=== PATIENT | female | born 1995 | race Caucasian/White ===

== ENCOUNTER 2024-06-13 23:40 | Emergency (ER) | payer SELFPAY ==
[2024-06-13 23:37] VITALS: BP 128/93; PULSE 99; RESP 16; TEMP 36.6; O2SAT 100
--- NOTE | 2024-06-13 23:42 | ECG_ITS ---
Test Date: 2024-06-14 00:20:01 Measurements Intervals [place] Rate: P: 0 RI: 0 QRS: 0 QRSD: 0 T: 0 QT: 0 QTc: 0 Interpretive Statements NORMAL SINUS RHYTHM No previous ECG available for comparison Electronically Signed On 06-14-2024 08:45:52 URBAN SOCIOLOGIST by Cherry Alexis M.D.
[2024-06-13 23:53] LABS: BEDSIDEPREGUCG Negative (Negative)
[2024-06-13] MEDS: Please add drug allergy info to patient profile. 1 EACH XX (23:59)
[2024-06-13] MEDS: ONDANSETRON INJ 4 MG/2 ML VIAL IV PUSH (23:59)
[2024-06-14] MEDS: [UNRECOGNIZED DRUG - OTHER] IV CONT (00:03)
[2024-06-14] MEDS: FOLIC ACID IV CONT (00:03)
[2024-06-14] MEDS: MAGNESIUM SULFATE IV CONT (00:03)
[2024-06-14] MEDS: THIAMINE HCL IV CONT (00:03)
[2024-06-14] MEDS: Please add drug allergy info to patient profile. 1 EACH XX (00:06)
[2024-06-14 00:07] LABS: Basophils Absolute Auto 0.1 K/mm3 (0.0-0.1); Basophils Percent Auto 0.7 % (0.2-1.2); Eosinophils Absolute Auto 0.2 K/mm3 (0-0.3); Eosinophils Percent Auto 1.2 % (0-4.4); Hematocrit 41.1 % (37.0-47.0); Hemoglobin 13.4 g/dL (12.0-15.0); Immature Granulocyte Absolute 0.09 K/mm3 (0.00-0.031); Immature Granulocyte Percent A 0.7 % (0-0.5); Lymphocytes Absolute Auto 5.25 K/mm3 (0.9-3.2); Lymphocytes Percent Auto 39.6 % (18.3-44.2); Mean Corpuscular HGB Conc 32.6 g/dl (32-36); Mean Corpuscular Hemoglobin 27.1 pg (26-34); Mean Corpuscular Volume 83.2 fl (80-100); Mean Platelet Volume 10.2 fl (7.4-10.4); Monocytes Absolute Auto 0.8 K/mm3 (0.1-0.6); Neutrophils Absolute Auto 6.9 K/mm3 (1.3-6.7); Neutrophils Percent Auto 51.8 % (45.5-73.1); Platelet Count Result 397 k/mm3 (150-375); Red Blood Count 4.94 M/mm3 (4.2-5.4); Red Cell Distribution Width 12.4 % (11.5-14.5); White Blood Count 13.3 K/mm3 (4.5-10.0)
[2024-06-14 00:08] LABS: Add Urine Microscopic? NO; Appearance Urine Clear (Clear); Bilirubin Urine Negative (Negative); Blood Urine Negative (Negative); Color Urine Yellow (Yellow); Glucose Urine UA Negative (Negative); Ketones Urine Negative (Negative); Leukocyte Esterase Ur Negative LEU/UL (Negative); Nitrate Urine Negative (Negative); Protein Urine Negative (Negative); Specific Grav Ur 1.008 (1.001-1.035); Urobilinogen Urine 0.2 mg/dL (<2.0); pH Urine 5.5 (5.0-9.0)
[2024-06-14 00:16] LABS: Alanine Aminotransferase 18 U/L (6-35); Albumin Level 4.5 g/dL (3.5-5.1); Alkaline Phosphatase 79 U/L (38-126); Anion Gap 11 mmol/L (4-12); Aspartate Amino Transferase 25 U/L (14-36); Bilirubin,Total 0.3 mg/dL (0.2-1.3); Blood Urea Nitrogen 12 mg/dL (7-17); Calcium 8.5 mg/dL (8.4-10.2); Carbon Dioxide 21 mmol/L (22-30); Chloride 111 mmol/L (98-107); Estimated Glomerular Filt Rate > 60; Ethanol 183 mg/dL (<10); Glucose 156 mg/dL (65-110); Potassium 3.5 mmol/L (3.4-5.0); Sodium 143 mmol/L (137-145)
[2024-06-14] MEDS: METOCLOPRAMIDE HCL INJ 10 MG/2 ML VIAL IV PUSH (00:18)
[2024-06-14 00:48] LABS: Prothrombin Time 13.5 Seconds (11.1-14.7)
--- NOTE | 2024-06-14 01:06 | ED_ITS ---
HPI - Alcohol General Chief Complaint: Alcohol Stated Complaint: N/V, AMS, ETOH+ Time Seen by Provider: 06/13/24 23:41 History of Present Illness HPI narrative: 29-year-old female with no pertinent past medical history presented to the emergency department with a chief complaint of alcohol intoxication. She was at a wedding and EMS arrived scene to find the patient in and out of consciousness. Reported that she drinks between 4 9 glass of wine. Patient is drowsy but is able to answer questions. No obvious evidence of trauma. She is not ill appearing. Is retching and vomited several times prior to arrival and here in the emergency department. She is denying any abdominal pain, headache, vision changes, chest pain or difficulty breathing. States that she drank too much alcohol but denies any other substances today. Related Data Allergies Allergy/AdvReac Type Severity Reaction Status Date / Time Sulfa (Sulfonamide Allergy Intermediate Unknown Verified 06/13/24 23:59 Antibiotics) Review of Systems 2 Review of Systems: As reviewed above in HPI Exam 2 Narrative: GENERAL: Somnolent, arousable to verbal stimuli, answers questions appropriately when awake HEAD: [Normocephalic, atraumatic.] EYES: [PERRLA and EOMI.] ENT: Nares clear, no rhinorrhea or epistaxis. Mucous membranes dry. NECK: Supple. CHEST: [Clear to auscultation. No respiratory distress.] HEART: [Regular rate and rhythm]. No murmur heard. [Normal peripheral pulses.] ABDOMEN: [Soft, nondistended], [nontender], [No rigidity or guarding] EXTREMITIES: Normal range of motion. [No edema.] SKIN: Warm, dry, no rash. NEURO: Seems to move all extremities with equal effort in strength. , arousable to verbal and physical stimuli PSYCH: Appropriate Course Vital Signs Vital signs: Vital Signs Temperature 36.6 C 06/13/24 23:37 Pulse Rate 99 06/13/24 23:37 Respiratory Rate 16 06/13/24 23:37 Blood Pressure 128/93 H 06/13/24 23:37 Pulse Oximetry 100 06/13/24 23:37 Oxygen Delivery Room Air 06/13/24 23:37 Temperature 36.7 C 06/14/24 01:07 Pulse Rate 109 H 06/14/24 01:07 Respiratory Rate 19 06/14/24 01:07 Blood Pressure 94/66 L 06/14/24 01:07 Pulse Oximetry 100 06/14/24 01:07 Oxygen Delivery Room Air 06/13/24 23:37 MDM - Alcohol MDM Narrative Medical decision making narrative: 29-year-old female presenting to the emergency department for mental status changes and suspected significant alcohol intoxication. Patient was drifting in and out of consciousness according to EMS report and that is why they called seen. Patient's family states she drank between 4 9 glass of wine. Patient is obviously intoxicated but there is no evidence of visible trauma to her head neck or extremities. She has clear breath sounds and a soft nontender abdomen. She is arousable to verbal and physical stimuli but states that she is very nauseous and does rash throughout the examination. No obvious injuries and she has full strength throughout both arms legs with no apparent deficits. Workup was ordered including alcohol level, UDS, laboratory studies. EKG. Patient was provided him Zofran and then Reglan for several episodes of retching and nausea vomiting. Workup reveals a leukocytosis of 13.3 likely secondary to her multiple episodes of retching and vomiting. No obvious infectious type symptoms and she is afebrile with normal vital signs otherwise. Normal hemoglobin. Normal coagulation studies, electrolytes all within normal limits, appropriate glucose at 1:56 a.m., normal hepatic function panel. Alcohol level elevated 183 indicating alcohol intoxication and the likely source of her mental status. Urinalysis without any infection. Negative test. Patient's workup is reassuring and she is intoxicated. Her family members are present at bedside and felt comfortable with taking her home as she has no other injuries or acute findings. We can send her home with a prescription for Zofran if she has any recurrent emesis but otherwise she is stable for discharge home accompanied by her sober parents who are agreeable to take her home and bring her back if there is any new or worsening concerns at any time. Medical Records Attestation: I reviewed the patient's medical records. Lab Data Attestation: I reviewed the patient's lab results. 06/14/24 00:00 06/14/24 00:00 Labs: Lab Results 06/13/24 06/14/24 Range/Units 23:50 00:00 WBC 13.3 H (4.5-10.0) K/mm3 RBC 4.94 (4.2-5.4) M/mm3 Hgb 13.4 (12.0-15.0) g/dL Hct 41.1 (37.0-47.0) % MCV 83.2 (80-100) fl MCH 27.1 (26-34) pg MCHC 32.6 (32-36) g/dl RDW 12.4 (11.5-14.5) % Plt Count 397 H (150-375) k/mm3 MPV 10.2 (7.4-10.4) fl Immature Gran % (Auto) 0.7 H (0-0.5) % Neut % (Auto) 51.8 (45.5-73.1) % Lymph % (Auto) 39.6 (18.3-44.2) % [place] % (Auto) 6.0 (2.6-8.5) % Eos % (Auto) 1.2 (0-4.4) % Baso % (Auto) 0.7 (0.2-1.2) % Lymph # (Auto) 5.25 H (0.9-3.2) K/mm3 [place] # (Auto) 0.8 H (0.1-0.6) K/mm3 Eos # (Auto) 0.2 (0-0.3) K/mm3 Baso # (Auto) 0.1 (0.0-0.1) K/mm3 Abs Immat Gran (auto) 0.09 H (0.00-0.031) K/mm3 Absolute Neuts (auto) 6.9 H (1.3-6.7) K/mm3 Absolute Nucleated RBC 0.000 (0.0-0.012) K/mm3 Nucleated RBC % 0.0 (0.0-0.2) % PT 13.5 (11.1-14.7) Seconds INR 1.0 APTT 24.0 (22.3-36.8) Seconds Sodium 143 (137-145) mmol/L Potassium 3.5 (3.4-5.0) mmol/L Chloride 111 H (98-107) mmol/L Carbon Dioxide 21 L (22-30) mmol/L Anion Gap 11 (4-12) mmol/L BUN 12 (7-17) mg/dL Creatinine 0.70 (0.7-1.0) mg/dL Estim Creat Clear Calc Not Reportable Estimated GFR > 60 (59 - ) Glucose 156 H (65-110) mg/dL Calcium 8.5 (8.4-10.2) mg/dL Total Bilirubin 0.3 (0.2-1.3) mg/dL AST 25 (14-36) U/L ALT 18 (6-35) U/L Alkaline Phosphatase 79 (38-126) U/L Total Protein 7.0 (6.3-8.2) g/dL Albumin 4.5 (3.5-5.1) g/dL Urine Color Yellow (Yellow) Urine Appearance Clear (Clear) Urine pH 5.5 (5.0-9.0) Ur Specific [place] 1.008 (1.001-1.035) Urine Protein Negative (Negative) mg/dL Urine Glucose (UA) Negative (Negative) mg/dL Urine Ketones Negative (Negative) mg/dL Ur Blood (Man) Negative (Negative) Urine Nitrate Negative (Negative) Urine Bilirubin Negative (Negative) Urine Urobilinogen 0.2 (<2.0) mg/dL Leukocyte Esterase Rfl Negative (Negative) LE/UL POC Urine HCG, Qual Negative (Negative) Ethyl Alcohol 183 (<10) mg/dL Discharge Plan Discharge Clinical Impression: Alcoholic intoxication Patient Disposition: Home, Self-Care Condition: Stable Instructions: Antibiotic Form, Alcohol Intoxication (ED) Additional Instructions: Return with any new or worsening concerns. Patient Language: Greenlandic Prescriptions: New ondansetron 4 mg tablet,disintegrating 4 mg PO Q8H PRN (Reason: nausea and vomiting) Qty: 10 0RF Follow-up/Referrals: UNKNOWN,DOCTOR [Primary Care Provider] - Time of Disposition: 01:15
[2024-06-14 01:07] VITALS: BP 94/66; PULSE 109; RESP 19; TEMP 36.7; O2SAT 100
--- OUTSIDE RECORDS SUMMARY | 2024-06-18 11:48 | XMS_ITS | Encounter Summary ---
Author Organization [facility] Address [address] [place] [address] Care Team Providers Care First Leveler Name Role Phone Yvonne Reyes MD Primary Care Provider Isaiah ayers Encounter Details Date Type Department Care Team (Latest Contact Info) Description 05/29/2019 Travel Social History Tobacco Use Types Packs/Day Years Used Date Smoking Tobacco: Never Smokeless Tobacco: Never Alcohol Use Standard Drinks/Week Comments Yes 0 (1 standard drink = 0.6 oz pur e alcohol) 2 times weekly Sex and Gender Information Value Date Recorded Sex Assigned at Not on file Gender Identity Not on file Sexual Orientation Not on file documented as of this encounter Plan of Treatment Not on file documented as of this encounter Visit Diagnoses Not on filedocumented in this encounter Care Teams First Leveler Relationship Specialty Start Date End Date Yvonne Reyes MD PCP - General Internal Medicine 11/21/17 12/19/20 documented as of this encounter
--- OUTSIDE RECORDS SUMMARY | 2024-06-18 11:48 | XMS_ITS | Encounter Summary ---
Author Organization [facility] Address [address] [place] [address] Care Team Providers Care Eco Industrial Development Consultant Name Role Phone Yvonne Reyes MD Primary Care Provider Isaiah ayers Reason for Visit * Reason Comments Abdominal Pain sharp pain in stomac h every 15 seconds, acid in throat, upper middle Encounter Details Date Type Department Care Team (Late st Contact Info) Description 05/29/2019 10:15 AM EST Office Visit [facility] [address] [facility] [place] [address] Ananth Singh, [facility] [address] [facility] [facility] [place] [address] [place] [address] Nausea without vomiting (Primary Dx); Intermittent left upper quadrant abdominal pain Social History Tobacco Use Types Packs/Day Years Used Date Smoking Tobacco: Never Smokeless Tobacco: Never Alcohol Use Standard Drinks/Week Comments Yes 0 (1 standard drink = 0.6 oz pur e alcohol) 2 times weekly Sex and Gender Information Value Date Recorded Sex Assigned at Not on file Gender Identity Not on file Sexual Orientation Not on file documented as of this encounter Last Filed Vital Signs Vital Sign Reading Time Taken Comments Blood Pressure 112/77 05/29/2019 10:16 AM EST Pulse 80 05/29/2019 10:16 AM EST Temperature 36.8 ??C (98.2 ??F) 05/29/2019 10:[address] Respiratory Rate - - Oxygen Saturation 98% 05/29/2019 10:16 AM EST Inhaled Oxygen Concentration - - Weight 64 kg (141 lb) 05/29/2019 10:16 AM EST Height - - Body Mass Index 22.08 11/17/2018 10:40 AM EDT documented in this encounter Progress Notes * Ananth Singh - 05/29/2019 10:54 AM EST Assessment/Impression Portions of this note were dictated using [employer] voice recognition software. Please disregard any errors in tripe finisher. 1. Nausea without vomiting ondansetron (ZOFRAN-ODT) 8 mg disintegrating tablet 2. Intermittent left upper quadrant abdominal pain Jeannine was seen today for abdominal pain. Diagnoses and all orders for this visit: Nausea without vomiting - ondansetron (ZOFRAN-ODT) 8 mg disintegrating tablet; Take one tablet (8 mg dose) by mouth every 8 (eight) hours as needed for Nausea for up to 3 days. Intermittent left upper quadrant abdominal pain Plan 1. Orders and medications during the visit: Unclear etiology for her symptoms. Patient is afebrile. She appears nontoxic. Nontender abdomen during exam. Zofran as needed for nausea. Recommended modification of her diet, clear liquids for now and advance as tolerated. Recommended follow-up with her primary care provider for further evaluation, possible gastroenterology referral. Discussed red flag signs and symptoms to include progressing or worsening abdominal pain accompanied by fever, vomiting, or diarrhea. Recommended she continue Pepto-Bismol as needed, as directed. Also discussed use of Tums or Rolaids. Continue Zantac or Pepcid as needed. If no relief, consider trial of Prilosec. No orders of the defined types were placed in this encounter. Jeannine Keene had no medications administered during this visit. 2. There are no Patient Instructions on file for this visit. 3. Discharge medications and medication changes: Patient's Medications New Prescriptions ONDANSETRON (ZOFRAN-ODT) 8 MG DISINTEGRATING TABLET Take one tablet (8 mg dose) by mouth every 8 (eight) hours as needed for Nausea for up to 3 days. Discontinued Medications No medications on file Subjective Chief Complaint Patient presents with ??? Abdominal Pain sharp pain in stomach every 15 seconds, acid in throat, upper middle HPI: Jeannine Keene is a 24 y.o. ( 1995) female. Patient is here for evaluation and complains of 2 to 3-day history of upper abdominal pain. Patient has been taking Pepto-Bismol, Zantac, Pepcid without relief. Pain is intermittent in nature. Rating it an 8 out of 10, localized, burning, gnawing. She denies prior episodes, but has taken Prilosec previously for a cough that she ultimately associates with Lexapro use. She denies fever, but states she has felt warm. 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 She denies blood or mucus in her stool. She denies recent antibi otic use. She denies suspicious food sources. She denies dizziness or weakness. She states that hernutrition is not the best being in college. She denies rash, sore throat, cough, congestion, runny nose. She denies known sick contacts. She does not smoke. No previous imaging available for the abdomen and pelvis. Current Outpatient Medications Medication Sig Dispense Refill ??? escitalopram oxalate (LEXAPRO) 10 mg tablet Take one tablet (10 mg dose) by mouth daily. 30 tablet 0 ??? escitalopram oxalate (LEXAPRO) 10 mg tablet Take one tablet (10 mg dose) by mouth daily. 30 tablet 5 ??? escitalopram oxalate (LEXAPRO) 10 mg tablet Take 1 a day 30 tablet 1 ??? SRONYX 0.1-20 MG-MCG per tablet TAKE 1 TABLET BY MOUTH EVERY DAY 6 ??? omeprazole (PRILOSEC) 20 mg capsule Take 1 a day (Patient not taking: Reported on 05/29/2019) 30 capsule 1 ??? omeprazole (PRILOSEC) 40 mg capsule TAKE ONE CAPSULE BY MOUTH EVERY DAY ON AN EMPTY STOMACH 30 MINS BEFORE BREAKFAST 11 ??? ondansetron (ZOFRAN-ODT) 8 mg disintegrating tablet Take one tablet (8 mg dose) by mouth every 8 (eight) hours as needed for Nausea for up to 3 days. 10 tablet 0 No current facility-administered medications for this visit. Allergies Allergen Reactions ??? Sulfa Antibiotics Rash No past medical history on file. No past surgical history on file. Family History Problem Relation Age of Onset ??? Hypertension Mother ??? Hypertension Father ??? Hyperlipidemia Father ROS: Review of Systems ROS completed with pertinent positives and negatives noted in HPI. Past Medical History, Past Surgery History, Allergies, Social History, and Family History, meds, and Allergies were reviewed and updated. Objective BP 112/77 Pulse 80 Temp 98.2 ??F (36.8 ??C) (Oral) Wt 141 lb (64 kg) LMP 05/20/2019 SpO2 98% BMI 22.08 kg/m?? Physical Exam Vitals signs and nursing note reviewed. Constitutional: General: She is not in acute distress. Appearance: Normal appearance. She is well-developed. She is not ill-appearing. Eyes: General: No scleral icterus. Cardiovascular: Rate and Rhythm: Normal rate and regular rhythm. Heart sounds: Normal heart sounds. No murmur. No friction rub. No gallop. Pulmonary: Effort: Pulmonary effort is normal. No respiratory distress. Breath sounds: Normal breath sounds. No wheezing. Abdominal: General: There is no distension. Palpations: Abdomen is soft. There is no mass. Tenderness: There is no abdominal tenderness. There is no right CVA tenderness, left CVA tenderness, guarding or rebound. Skin: General: Skin is warm and dry. Findings: No rash. Neurological: Mental Status: She is alert. Psychiatric: Mood and Affect: Mood normal. Behavior: Behavior normal. Thought Content: Thought content normal. Judgment: Judgment normal. Results of tests available at time of visit: No results found for this or any previous visit (from the past 24 hour(s)). Portions of this note were created using voice recognition software. Despite proofreading, there are occasionally spelling, content, or grammatical errors which remain. documented in this encounter Plan of Treatment Not on file documented as of this encounter Visit Diagnoses Diagnosis Nausea without vomiting- Primary Intermittent left upper quadrant abdominal pain documented in this encounter Care Teams Eco Industrial Development Consultant Relationship Specialty Start Date End Date Yvonne Reyes MD PCP - General Internal Medicine 11/21/17 12/19/20 documented as of this encounter
--- OUTSIDE RECORDS SUMMARY | 2024-06-18 11:48 | XMS_ITS | Clinical Summary ---
Author Organization [facility] Address [address] [place] [address] Care Team Providers Care Ski Edge Painter Name Role Phone Unavailable Primary Care Provider Unavailabl e Allergies Active Allergy Reactions Criticality Noted Date Comments Sulfa Antibiotics Rash Medium 01/13/2015 Medications Medication Sig Dispensed Refills Start Date End Date Status SRONYX 0.1-20 MG-MCG per tablet TAKE 1 TABLET BY MOUTH EVERY DAY 6 11/06/2017 Active escitalopram oxalate (LEXAPRO) 10 mg tablet Take 1 1/2 (one and a half) tablets once day 45 tablet 3 09/15/2019 Active escitalopram oxalate (LEXAPRO) 10 mg tablet Take 1 1/2 tablets a day 135 tablet 1 01/29/2020 Active escitalopram oxalate (LEXAPRO) 10 mg tablet TAKE 1 1/2 TABLETS A DAY 45 tablet 08/08/2020 Active Active Problems No known active problems Immunizations Name Administration Dates Next Due Influenza Quad 0.5ml single-dose vial(Fluzone) 0 03/22/2019,07/10/2017 Tdap 11/29/2012 Family History Medical History Relation Name Comments Hyperlipidemia Father Hypertension Father Hypertension Mother Relation Name Status Comments Father Alive Mother Alive Social History Tobacco Use Types Packs/Day Years Used Date Smoking Tobacco: Never Smokeless Tobacco: Never Alcohol Use Standard Drinks/Week Comments Yes 0 (1 standard drink = 0.6 oz pur e alcohol) 2 times weekly Depression Answer Date Recorded Depression Screening 0 08/16/2019 HITS Answer Date Recorded Physically Hurt Not on file 10/02/2022 Insult or Talk Down To Not on file 3 Threaten Physical Harm Not on file 3 Scream or Curse Not on file 10/02/2022 Social Network Answer Date Recorded Social Network Not on file 11/09/2022 Sex and Gender Information Value Date Recorded Sex Assigned at Not on file Gender Identity Not on file Sexual Orientation Not on file Last Filed Vital Signs Vital Sign Reading Time Taken Comments Blood Pressure 112/77 05/29/2019 10:16 AM EST Pulse 80 05/29/2019 10:16 AM EST Temperature 36.8 ??C (98.2 ??F) 05/29/2019 10:[address] Respiratory Rate 16 11/17/2018 10:40 AM EDT Oxygen Saturation 98% 05/29/2019 10:16 AM EST Inhaled Oxygen Concentration - - Weight 64 kg (141 lb) 05/29/2019 10:16 AM EST Height 170.2 cm (5' 7 ) 11/17/2018 10:40 AM EDT Body Mass Index 22.08 11/17/2018 10:40 AM EDT Plan of Treatment Health Maintenance Due Date Last Done Comments Pap Smear 07/15/2022 07/15/2019, 05/20/2017 DTaP/Tdap/Td Vaccines (2 - T d or Tdap) 11/29/2022 11/29/2012 COVID-19 Vaccine ( - 2023-2 5 season) 2024 Influenza Vaccine (#1) 2024 , 07/10/2017, 07/10/2017 Zoster Vaccine (1 of 2) 01/30/2046 HPV Vaccine Aged Out No longer eligi ble based on patient's age to complete this topic Hepatitis A Vaccine Aged Out No longe r eligible based on patient's age to complete this topic Meningococcal Conjugate Vaccine Aged Out No longer eligible b ased on patient's age to complete this topic Pneumococcal Vaccine: Pediatrics and At Risk Patients Aged Out No longer eligible b ased on patient's age to complete this topic Procedures Procedure Name Priority Date/Time Associated Diagnosis Comments PAP SMEAR Routine 07/15/2019 from Last 3 Months or Most Recently Relevant to Health Maintenance Results * PAP SMEAR (07/15/2019) Pap smear Normal Normal, Partial Deficiency, Gross Deficiency Narrative Ginette Deleon - 07/15/2019 Lab Results - documented in this encounter Gynecological Specimen (07/15/2019 12:00 AM EST) Gynecological Specimen (07/15/2019 12:00 AM EST) Gynecologic Cytology ?Final Outreach Gynecologic Cytopathology Report PATIENT ?ANIA WESLEY Eulalio ?ACCESSION # ?[id number] ?PROCEDURE DATE ?? 07/15/2019 ?1995 ? RECEIPT DATE ? 07/15/2019 ??23:20 AGE / SEX ??24 Y / F ? REPORTED DATE ?07/16/2019 ??15:33 LOCATION ?? [address] Outreach ?PROVIDER(S) ?ANTONIO PEREZ MD CLIENT ID: [facility] OUTREACH #: [id number] CHART #: [id number] Clinical History: LMP: 07/13/2019 Specimen: ?? THINPREP IMAGED PAP TEST WITH HPV REFLEX, CERVICAL/ENDOCERVICAL CYTOLOGIC DIAGNOSIS Satisfactory for evaluation. NEGATIVE FOR INTRAEPITHELIAL LESION OR MALIGNANCY ELECTRONICALLY SIGNED BY LYNDSEY TILL NOTE: ??The Pap test is a screening test designed to aid in the detection of premalignant and malignant conditions of the uterine cervix. ??It should not be used as the sole means of detecting cervical cancer. ??Both false positive and false negative results occur. Historical Provider MD MAYANK Gallardo from Last 3 Months or Most Recently Relevant to Health Maintenance Advance Directives For more information, please contact: [phone] Healthcare Agents on File Name Relationship Healthcare Agent Relationshi p Communication Trinity Wesley Mother [place] [phone] (Heather barrow)
--- OUTSIDE RECORDS SUMMARY | 2024-06-18 11:48 | XMS_ITS | Encounter Summary ---
Author Organization [facility] Address [address] [facility] [place] [address] Care Team Providers Care Ecommerce Analyst Name Role Phone Unavailable Primary Care Provider Unavailabl e Reason for Visit * Reason Comments Establish Care Encounter Details Date Type Department Care Team (Latest Contact Info) Description 05/10/2022 Care Coordinates Care Coordinates [address] [address] Rosa Jackson Counseling and coordination of care (Primary Dx) Social History Tobacco Use Types Packs/Day Years Used Date Smoking Tobacco: Never Smokeless Tobacco: Never Alcohol Use Standard Drinks/Week Comments Yes 0 (1 standard drink = 0.6 oz pur e alcohol) 2 times weekly Depression Answer Date Recorded Depression Screening 0 08/16/2019 Sex and Gender Information Value Date Recorded Sex Assigned at Not on file Gender Identity Not on file Sexual Orientation Not on file documented as of this encounter Progress Notes * Rosa Jackson - 05/10/2022 8:44 AM EST This patient's chart has been reviewed by a Care Connections Specialist. Attempted to contact patient in order to discuss appointments and screenings due for the upcoming year. UTR and Sent [employer] message with recommendations and contact information. documented in this encounter Plan of Treatment Not on file documented as of this encounter Visit Diagnoses Diagnosis Counseling and coordination of care- Primary documented in this encounter
--- OUTSIDE RECORDS SUMMARY | 2024-06-18 11:48 | XMS_ITS | Encounter Summary ---
Author Organization [facility] Address [address] [facility] [place] [address] Care Team Providers Care Airplane Woodworker Name Role Phone Unavailable Primary Care Provider Unavailabl e Reason for Visit * Reason Comments Gaps In Care Encounter Details Date Type Department Care Team (Late st Contact Info) Description 01/23/2021 Care Coordinates Care Coordinates [address] [address] Gisselle Beckett Social History Tobacco Use Types Packs/Day Years [...] as of this encounter Progress Notes * Gisselle Beckett - 01/23/2021 9:44 AM EDT Record reviewed by Care Connections Specialist I in Care Connections to identify if the patient hasa PCP. Unable to reach the patient, my chart message requesting return call. documented in this encounter Plan of Treatment Not on file documented as of this encounter Visit Diagnoses Not on filedocumented in this encounter
--- OUTSIDE RECORDS SUMMARY | 2024-06-18 11:48 | XMS_ITS | Encounter Summary ---
Author Organization [facility] Address [address] [place] [address] Care Team Providers Care Printed Circuit Board Panels Developer Name Role Phone Unavailable Primary Care Provider Unavailabl e Reason for Visit * Reason Comments Gaps In Care Encounter Details Date Type Department Care Team (Late st Contact Info) Description 01/14/2023 Care Coordinates Care Coordinates [address] [address] Janay Robbins Counseling on health promotion and disease prevention (Primary Dx) Social History Tobacco Use Types [...] as of this encounter Progress Notes * Janay Robbins - 01/14/2023 4:13 PM EDT This patient's chart has been reviewed by a Care Connections Specialist. Attempted to contact patient in order to discuss appointments and screenings due for the upcoming year. UTR and Sent archifyt message with recommendations and contact information. Additional Comments: documented in this encounter Plan of Treatment Not on file documented as of this encounter Visit Diagnoses Diagnosis Counseling on health promotion and disease prevention- Primary Other specified counseling documented in this encounter
--- OUTSIDE RECORDS SUMMARY | 2024-06-18 11:48 | XMS_ITS | Encounter Summary ---
Author Organization [facility] Address [address] [place] [address] Care Team Providers Care Filter Cleaner Name Role Phone Yvonne Reyes MD Primary Care Provider Isaiah ayers Encounter Details Date Type Department Care Team (Latest Contact Info) Description 01/29/2020 Travel Social History Tobacco Use Types Packs/Day [...] on file Sexual Orientation Not on file COVID-19 Exposure Response Date Recorded In the last month, have you been in contact with someone who was confirmed or suspected to have Coronavirus / COVID-19? No / Unsure 01/29/2020 11:32 AM EDT documented as of this encounter Plan of Treatment Not on file documented as of this encounter Visit Diagnoses Not on filedocumented in this encounter Care Teams Filter Cleaner Relationship Specialty Start Date End Date Yvonne Reyes MD PCP - General Internal Medicine 11/21/17 12/19/20 documented as of this encounter
--- OUTSIDE RECORDS SUMMARY | 2024-06-18 11:48 | XMS_ITS | Encounter Summary ---
Author Organization [facility] Address [address] [facility] [address] [facility] [place] [address] Care Team Providers Care Skewer Up Name Role Phone Yvonne Reyes MD Primary Care Provider Isaiah ayers Encounter Details Date Type Department Care Team (Late st Contact Info) Description 01/29/2020 11:30 AM EDT Telemedicine [facility] [address] [place] [phone] Yvonne Reyes MD Anxiety (Primary Dx) Social History Tobacco Use Types [...] AM EDT documented as of this encounter Progress Notes * Yvonne Reyes MD - 01/29/2020 12:53 PM EDT Images from the original note were not included. Jeannine Keene is a 24 y.o. female CC: VIDEO remote visit done during the time of the Covid 19 pandemic. This video visit was done with Doximity for connectivity issues. Any examination is done with the use of a video/computer monitor. Vital signs and other aspects of the physical exam are limited due to the nature of this encounter. 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 She has been on Lexapro since about December 2017. She ended up increasing her Lexapro dose from 10 mg daily to 15 mg daily and feels like this is the correct dose. She says this seems to control her symptoms adequately and she feels like she should probably continue this through vet school. No notable depression. Her weight has been within a stablerange of about 10 pounds. There is no problem list on file for this patient. Allergies Allergen Reactions ??? Sulfa Antibiotics Rash No outpatient medications have been marked as taking for the 01/29/20 encounter (Appointment) with Yvonne Reyes MD. No past medical history on file. No past surgical history on file. Social History Socioeconomic History ??? Marital status: Single Spouse name: Not on file ??? Number of children: 0 ??? Years of education: Not on file ??? Highest education level: Not on file Occupational History ??? Not on file Social Needs ??? Financial resource strain: Not on file ??? Food insecurity Worry: Not on file Inability: Not on file ??? Transportation needs Medical: Not on file Non-medical: Not on file Tobacco Use ??? Smoking status: Never Smoker ??? Smokeless tobacco: Never Used Substance and Sexual Activity ??? Alcohol use: Yes Comment: 2 times weekly ??? Drug use: No ??? Sexual activity: Not on file Lifestyle ??? Physical activity Days per week: Not on file Minutes per session: Not on file ??? Stress: Not on file Relationships ??? Social connections Talks on phone: Not on file Gets together: Not on file Attends methodist service: Not on file Active member of club or organization: Not on file Attends meetings of clubs or organizations: Not on file Relationship status: Not on file ??? Intimate partner violence Fear of current or ex partner: Not on file Emotionally abused: Not on file Physically abused: Not on file Forced sexual activity: Not on file Other Topics Concern ??? 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 She feels like she is getting benefit by takingthe extra half a tablet but does not feel like she needs to increase this to 20 mg daily. Interestingly, she says she is counting less often now. She believes she has OCD and prior to starting the Lexapro she has been counting a lot of situations in her life which she no longer feels compelled to do. She plans to schedule a physical exam. Patient's Medications Accurate as of January 29, 2020 12:54 PM. Reflects encounter med changes as of last refresh Continued Medications Instructions SRONYX 0.1-20 MG-MCG per tablet Generic drug: levonorgestrel-ethinyl estradiol TAKE 1 TABLET BY MOUTH EVERY DAY Modified Medications Instructions * escitalopram oxalate 10 mg tablet Commonly known as: LEXAPRO What changed: Another medication with the same name was changed. Make sure you understand how and when to take each. Changed by: Yvonne Reyes MD Take 1 1/2 (one and a half) tablets once day * escitalopram oxalate 10 mg tablet Commonly known as: LEXAPRO What changed: additional instructions Changed by: Yvonne Reyes MD Take 1 1/2 tablets a day * This list has 2 medication(s) that are the same as other medications prescribed for you. Read thedirections carefully, and ask your doctor or other care provider to review them with you. Discontinued Medications omeprazole 20 mg capsule Commonly known as: PRILOSEC Stopped by: Yvonne Reyes MD omeprazole 40 mg capsule Commonly known as: PRILOSEC Stopped by: Yvonne Reyes MD The patient/family voices understanding of all medications. No barriers to adherence. Patient is taking all medications as prescribed and tolerating well. For any new medications the patient/family was instructed of directions for and the consequences ofnot taking medication and they were informed about the potential side effects and drug interactions. In the day to day evolution of this pandemic it has to be recognized that recommendations and algorithms of care as well as availability of diagnostic measures and treatment are in constant flux. I have reviewed the information contained in this note and personally verified its accuracy. documented in this encounter Plan of Treatment Not on file documented as of this encounter Visit Diagnoses Diagnosis Anxiety- Primary Anxiety state, unspecified documented in this encounter Care Teams Skewer Up Relationship Specialty Start Date End Date Yvonne Reyes MD PCP - General Internal Medicine 11/21/17 12/19/20 documented as of this encounter
--- OUTSIDE RECORDS SUMMARY | 2024-06-18 11:49 | XMS_ITS | Encounter Summary ---
Author Organization [facility] Address [address] [facility] [place] [address] Care Team Providers Care Licensed Chemical Spray Technician Name Role Phone Unavailable Primary Care Provider Unavailabl e Reason for Visit * Reason Comments Gaps In Care Encounter Details Date Type Department Care Team (Late st Contact Info) Description 05/07/2016 Care Coordinates Care Coordinates [address] [address] Ewa Wilkes RN Counseling on health promotion and disease prevention (Primary Dx) Social History Tobacco Use Types Packs/Day Years Used Date Smoking Tobacco: Never Assessed Sex and Gender Information Value Date Recorded Sex Assigned at Not on file Gender Identity Not on file Sexual Orientation Not on file documented as of this encounter Progress Notes * More Zhao - 05/07/2016 10:18 AM EST Record reviewed by care coordination to identify PCP. PCP not found in record. Called patient at number listed on medical record in an attempt to obtain PCP name. Unable to leave message with my contact information. documented in this encounter Plan of Treatment Not on file documented as of this encounter Visit Diagnoses Diagnosis Counseling on health promotion and disease prevention- Primary Other specified counseling documented in this encounter
--- OUTSIDE RECORDS SUMMARY | 2024-06-18 11:49 | XMS_ITS | Encounter Summary ---
Author Organization Address [address] [facility] [place] [address] Care Team Providers Care Transmission Systems Operator Name Role Phone Yvonne Reyes MD Primary Care Provider Isaiah ayers Encounter Details Date Type Department Care Team (Late st Contact Info) Description 11/29/2017 10:10 AM EDT Procedure visit Count Includes [facility] [address] [facility] [facility] [address] [place] [phone] Yvonne Reyes MD Jack, Linda D, RT Cough Social History Tobacco Use Types Packs/Day Years [...] as of this encounter Progress Notes * RT Da - 11/29/2017 10:19 AM EDT EXAM PERFORMED documented in this encounter Plan of Treatment Not on file documented as of this encounter Procedures Procedure Name Priority Date/Time Associated Diagnosis Comments XR CHEST PA AND LATERAL Routine 11/29/2017 10:19 AM EDT Cough documented in this encounter Results * XR Chest Pa And Lateral (11/29/2017 10:19 AM EDT) Anatomical Region Laterality Modality Chest Computed Radiogr aphy 11/29/2017 10:5 1 AM EDT Impressions 11/29/2017 10:52 AM EDT IMPRESSION: No acute or active cardiopulmonary disease. Narrative 11/29/2017 10:52 AM EDT PA and lateral chest, 2 views FINDINGS: No prior films are available for comparison. The heart and mediastinum are normal in size and contour. Pulmonary vascularity is unremarkable. Lungs and pleura are clear. There are no masses, infiltrates, CHF, pleural effusions, or pneumothorax. There are no acute bony abnormalities. Procedure Note Raleigh Rubio W - 11/29/2017 PA and lateral chest, 2 views FINDINGS: No prior films are available for comparison. The heart andmediastinum are normal in size and contour. Pulmonary vascularity isunremarkable. Lungs and pleura are clear. There are no masses,infiltrates, CHF, pleural effusions, or pneumothorax. There are no acute bony abnormalities. IMPRESSION: No acute or active cardiopulmonary disease. Yvonne Reyes MD IMG DIAGNOSTIC IMAGI NG ORDERABLES documented in this encounter Visit Diagnoses Diagnosis Cough documented in this encounter Care Teams Transmission Systems Operator Relationship Specialty Start Date End Date Yvonne Reeys MD PCP - General Internal Medicine 11/21/17 12/19/20 documented as of this encounter
--- OUTSIDE RECORDS SUMMARY | 2024-06-18 11:49 | XMS_ITS | Encounter Summary ---
Author Organization [facility] Address [address] [facility] [place] [address] Care Team Providers Care Administration Intern Name Role Phone Yvonne Reyes MD Primary Care Provider Isaiah ayers Reason for Visit * Reason Comments Cough dry cough x 7 mos wo rse last couple of months-feel congested/ NEW PATIENT TO OFFICE Encounter Details Date Type Department Care Team (Late st Contact Info) Description 11/29/2017 9:00 AM EDT Office Visit [facility] [address] [facility] [facility] [address] [place] [address] Yvonne Reyes MD Cough (Primary Dx) Social History Tobacco Use Types [...] Sign Reading Time Taken Comments Blood Pressure 112/62 11/29/2017 9:31 AM EDT Pulse 71 11/29/2017 9:31 AM EDT Temperature - - Respiratory Rate - - Oxygen Saturation 98% 11/29/2017 9:31 AM EDT Inhaled Oxygen Concentration - - Weight 60 kg (132 lb 3.2 oz) 11/29/2017 9:31 AM EDT Height 171.5 cm (5' 7.5 ) 11/29/2017 9:31 AM EDT Body Mass Index 20.4 11/29/2017 9:31 AM EDT documented in this encounter Progress Notes * Yvonne Reyes MD - 11/29/2017 9:35 AM EDT Jeannine Keene is a 22 y.o. female Chief Complaint Patient presents with ??? Cough dry cough x 7 mos worse last couple of months-feel congested/ NEW PATIENT TO OFFICE She is new to this office and is here with her mother with the patient. She has been followed previously primarily by pediatrics and then more recently by student health at [facility]. She is applying for [employer] school this summer. She has been experiencing a cough for about 8 months. She believes it is mostly in her throat and it is mostly a dry cough but occasionally she brings up some sputum. Sometimes she feels like she is having some chest congestion as well. She has not specifically noted face pain. No fevers. She has felt mildly short of breath at times. No history of asthma. She tried Claritin and also tried Zyrtec without significant benefit. She has taken occasional Advil. She is planning a trip to [place] in mid November. Her mother has also noted a possible mild nervous component to her cough, possibly triggered by stress. There is no problem list on file for this patient. Allergies Allergen Reactions ??? Sulfa Antibiotics Rash Outpatient Prescriptions Marked as Taking for the 11/29/17 encounter (Office Visit) with Yvonne Reyes MD Medication Sig Dispense Refill ??? SRONYX 0.1-20 MG-MCG per tablet TAKE 1 TABLET BY MOUTH EVERY DAY 6 History reviewed. No pertinent past medical history. History reviewed. No pertinent surgical history. Social History Social History ??? Marital status: Single Spouse name: N/A ??? Number of children: 0 ??? Years of education: N/A Occupational History ??? Not on file. Social History Main Topics ??? Smoking status: Never Smoker ??? Smokeless tobacco: Never Used ??? Alcohol use Yes Comment: 2 times weekly ??? Drug use: No ??? Sexual activity: Not on file Other Topics Concern ??? 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 Hypertension Mother ??? Hypertension Father ??? Hyperlipidemia Father ROS: as per HPI Physical exam: General: WDWN female in NAD Vital signs: BP 112/62 Pulse 71 Ht 5' 7.5 (1.715 m) Wt 132 lb 3.2 oz (60 kg) LMP 10/29/2017 (Exact Date) SpO2 98% BMI 20.40 kg/m?? HEENT: NC/AT, PERRL, EOMI, oropharynx benign, TMs clear NECK: normal ROM CV: Regular rate and rhythm. No murmurs or gallops noted. Lungs: normal respiratory effort, clear. No wheezes or rhonchi noted. Abdomen: +BS, soft, nontender, no masses, no HSM Extremities: No clubbing, cyanosis, or edema Musculoskeletal: Normal gait and posture Skin: No rash noted Psych: Normal mood and affect Chest x-ray: No active disease Assessment and Plan: 1. Cough This may be multifactorial and associated with postnasal drip, allergic rhinitis, possible irritative bronchitis. She can try Flonase 2 sprays in each nostril once daily and also Marily 180 mg one by mouth daily. If not better in 3-7 days, she can proceed with Omnicef 300 mg by mouth twice a day (20) in view ofthe duration of her cough. Possible bronchitis and cannot rule out a component of sinusitis. Encouraged her to minimize clearing her throat. If necessary, if not responsive to the above measures, we can try a steroid taper. Follow up if not improving as expected. Orders Placed This Encounter Procedures ??? XR Chest Pa And Lateral Patient's Medications Accurate as of 11/29/17 5:32 PM. Reflects encounter med changes as of last refresh New Prescriptions Instructions cefdinir 300 mg capsule Commonly known as: OMNICEF Started by: Yvonne Reyes MD 300 mg, Oral, 2 times a day fluticasone propionate 50 mcg/actuation nasal spray Commonly known as: FLONASE Started by: Yvonne Reyes MD 2 sprays, Nasal, Daily Continued Medications Instructions SRONYX 0.1-20 MG-MCG per tablet Generic drug: levonorgestrel-ethinyl estradiol TAKE 1 TABLET BY MOUTH EVERY DAY The patient/family voices understanding of all medications. No barriers to adherence. Patient is taking all medications as prescribed and tolerating well. For any new medications the patient/family was instructed of directions for and the consequences ofnot taking medication and they were informed about the potential side effects and drug interactions. After visit summary given to patient. I have reviewed the information contained in this note and personally verified its accuracy. I obtained the history of present illness and personally performed the physical exam. documented in this encounter Plan of Treatment Not on file documented as of this encounter Results * XR Chest Pa [...] documented in this encounter Visit Diagnoses Diagnosis Cough- Primary Cough documented in this encounter Care Teams Administration Intern Relationship Specialty Start Date End Date Yvonne Reyes MD PCP - General Internal Medicine 11/21/17 12/19/20 documented as of this encounter
--- OUTSIDE RECORDS SUMMARY | 2024-06-18 11:49 | XMS_ITS | Encounter Summary ---
Author Organization [facility] Address [address] [facility] [facility] [place] [address] Care Team Providers Care Manager Truck Name Role Phone Yvonne Reyes MD Primary Care Provider Isaiah ayers Reason for Visit * Reason Comments Cough Encounter Details Date Type Department Care Team (Late st Contact Info) Description 12/09/2017 3:30 PM EDT Office Visit [facility] [id number] [place] [address] Yvonne Reyes MD Cough (Primary Dx); Anxiety; Syncope, vasovagal Social History Tobacco Use Types Packs/Day Years [...] Sign Reading Time Taken Comments Blood Pressure 110/64 12/09/2017 3:14 PM EDT Pulse 78 12/09/2017 3:14 PM EDT Temperature - - Respiratory Rate - - Oxygen Saturation 98% 12/09/2017 3:14 PM EDT Inhaled Oxygen Concentration - - Weight 59.9 kg (132 lb) 12/09/2017 3:14 PM EDT Height - - Body Mass Index 20.37 11/29/2017 9:31 AM EDT documented in this encounter Patient Instructions * Patient Instructions* Yvonne Reyes MD - 12/09/2017 4:13 PM EDT Images from the original note were not included. Fainting: Vagal Reaction Fainting (syncope) is a temporary loss of consciousness that is associated with a loss of postural tone. It???s also called passing out. It occurs when blood flow to the brain is less than normal. Your healthcare provider believes that your fainting was because of a vagal reaction. This condition is not a sign of serious disease. A vagal reaction is a response in your body that causes your pulse to slow down or the blood vessels to expand. This causes your blood pressure to fall. And this sends less blood to your brain if youare standing or sitting. That results in dizziness, near-fainting, or fainting. Lying down usually stops the reaction within 60 seconds. This response can occur during sudden fear, severe pain, emotional stress, overexertion, overheating, hunger, nausea or vomiting, prolonged standing, or standing up after sitting or lying for a long time. Home care Follow these guidelines when caring for yourself at home: ?? Rest today. Go back to your normal activities as soon as you are feeling back to normal. ?? Stay hydrated and avoid skipping meals. ?? If you feel lightheaded or dizzy, lie down right away. Or sit with your head lowered between your knees. Follow-up care Follow up with your healthcare provider, or as advised. Call 911 Call 911 if any of the following occur: ?? Another fainting spell that???s not explained by the common causes listed above ?? Pain in your chest, arm, neck, jaw, back, or abdomen ?? Shortness of breath ?? Severe headache or seizure ?? Your heart beats very rapidly, very slowly, or irregularly (palpitations) Date Last Reviewed: 05/31/2016 ?? [id number] [employer] [address] [place] [address], [place] [address]. All rights reserved. This information is not intended as a substitute for professional medical care. Always follow your healthcare professional's instructions. documented in this encounter Progress Notes * Yvonne Reyes MD - 12/09/2017 4:04 PM EDT Jeannine Keene is a 22 y.o. female Chief Complaint Patient presents with ??? Cough 22-year-old female returns to the clinic prior to a trip [place] because of her persistent irritative cough in the throat area primarily. Please see the full details of the recent office visit from November 29, 2017. Symptoms have been present for about 8 months. Her mother thought she may be having some anxiety as a contributing factor. 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 She has tried Marily and also Flonase. The Flonase may have helped a little. About 2 days after she was seen she started Omnicef but that has not helped. She is on the sixth day of treatment approximately and plans to complete 7 days and then stop. No facial pain. We had previously discussed a possible steroid taper and she would like to go ahead with that due to the irritative throat symptoms. She had been reading on the Internet and wondered if she might have hyperthyroidism. She would liketo check a thyroid lab. She has had some anxiety and also thought this might be related to the cough. Weight has generally been stable. There is no problem list on file for this patient. Allergies Allergen Reactions ??? Sulfa Antibiotics Rash No outpatient prescriptions have been marked as taking for the 12/09/17 encounter (Office Visit) with Yvonne Reyes MD. History reviewed. No pertinent past medical history. 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 HEENT: NC/AT, PERRL, EOMI, oropharynx benign, TMs clear NECK: normal ROM, No thyroid masses noted CV: Regular rate and rhythm. No murmurs or gallops noted. Lungs: normal respiratory effort, clear. No wheezes or rhonchi noted. Abdomen: +BS, soft, nontender, no masses, no HSM Extremities: No clubbing, cyanosis, or edema Assessment and Plan: 1. Cough 2. Anxiety Persistent irritative cough--she can try Tessalon Perles 100 mg by mouth 3 times a day when necessary (30) and also she can try the steroid taper prednisone 10 mg 4 by mouth every morning for 2 days in the reduce by one tablet every 2 days (20). She will follow-up after her trip if her symptoms have not resolved completely. Anxiety-she is interested in considering some anxiety medication if her anxiety symptoms do not improve. We will check TSH. Orders Placed This Encounter Procedures ??? TSH Addendum: When the patient was at the lab she had a syncopal episode while getting her blood drawn.She denied associated palpitations or other symptoms. She did note that she felt hot prior to feeling like she might pass out. With additional history, it appears that she has had 4 similar episodes in the last year. This was evaluated on one occasion at the emergency room in [facility]. She says this has previously been diagnosed as a vasovagal syncope and/or also possibly dehydration. She feltbetter after drinking water, lemonade, and eating crackers/cookies. After feeling better she came back over to the clinic area and that she felt much better at that time. Cardiac exam was repeated and unremarkable with no ectopy noted. Appearance- normal. Encouraged her to call her mother prior to making a decision about driving home. She says she will do that and she will also remain in the building for a period of time before making a decision to leave just to make sure she continues to feel well. We will ask the lab to add a complete metabolic panel to the blood drawn if possible. (Or at least a basic metabolic panel). Educational material provided regarding vasovagal syncope. Patient's Medications Accurate as of 12/09/17 4:04 PM. Reflects encounter med changes as of last refresh New Prescriptions Instructions benzonatate 100 mg capsule Commonly known as: TESSALON PERLES Started by: Yvonne Reyes MD Take 1 po tid prn cough predniSONE 10 mg tablet Commonly known as: DELTASONE Started by: Yvonne Reyes MD Take 4 tablets in am for 2 days and then reduce by 1 tablet every 2 days Continued Medications Instructions cefdinir 300 mg capsule Commonly known as: OMNICEF 300 mg, Oral, 2 times a day fluticasone propionate 50 mcg/actuation nasal spray Commonly known as: FLONASE 2 sprays, Nasal, Daily SRONYX 0.1-20 MG-MCG per tablet Generic drug: levonorgestrel-ethinyl estradiol TAKE 1 TABLET BY MOUTH EVERY DAY Follow-up after return from trip or sooner as needed Return to clinic sooner as needed. The patient/family voices understanding of all medications. [...] the physical exam. documented in this encounter Miscellaneous Notes * Addendum Note - Gary Jacques MLT - 12/09/2017 3:30 PM EDTAddended by: GARY JACQUES on: 12/09/2017 04:51 PM Modules accepted: Orders documented in this encounter Plan of Treatment Not on file documented as of this encounter Procedures Procedure Name Priority Date/Time Associated Diagnosis Comments POCT CBC W/DIFF Routine 12/09/2017 4:53 PM EDT Syncope, vasovagal CMP14+EGFR Routine 12/09/2017 4:06 PM EDT Syncope, vasovagal TSH Routine 12/09/2017 4:06 PM EDT Anxiety documented in this encounter Results * (ABNORMAL) POCT CBC W/DIFF (12/09/2017 4:53 PM EDT) WBC 10.9 4.5 - 11.0 x 10^3/uL [facility] % LYMPH 28.6 25.0 - 40.0 % [facility] MONO % 1.3(A) 4.0 - 12.0 % [facility] % GRAN 70.1 50.0 - 73.0 % [facility] Lymphs Absolute 3.1 1.0 - 4.5 x 10^3/uL [facility] Monos Absolute 0.1 0.1 - 1.0 x 10^3/uL [facility] Grans Absolute 7.6(A) 1.5 - 7.5 x 10^3/uL [facility] RBC 5.47(A) 4.00 - 5.20 x10E6/uL [facility] HGB 15.2(A) 12.0 - 15.0 g/dL [facility] Hematocrit 47.0 35.8 - 47.9 % [facility] MCV 86.0 82.0 - 98.0 fL [facility] MCH 27.9 26.0 - 34.0 pg [facility] MCHC 32.4 31.0 - 37.0 g/dL [facility] RDW 12.6 11.7 - 16.5 % [facility] Platelet Count 322 150 - 400 x 10^3/uL [facility] MPV 9.2 7.1 - 10.5 fL [facility] Blood 12/09/2017 4:53 PM EDT Yvonne Reyes MD POINT OF CARE TEST O RDERABLES [facility] [address] [place] [address] * (ABNORMAL) CMP14+eGFR (12/09/2017 4:06 PM EDT) Glucose 81 65 - 99 mg/dL [facility] BUN 12 6 - 20 mg/dL [facility] Creatinine 0.77 0.57 - 1.00 mg/dL [facility] 1 eGFR If NonAfrican [place] 111 >59 mL/min/1.7 3 [facility] 1 eGFR If 128 >59 mL/min/1.7 3 [facility] 1 BUN/Creatinine Ratio 16 9 - 23 [facility] 1 Sodium 140 134 - 144 mmol/L [facility] 1 Potassium 4.0 3.5 - 5.2 mmol/L [facility] 1 Chloride 101 96 - 106 mmol/L [facility] 1 CO2 18(L) 20 - 29 mmol/L [facility] 1 Comment:Please note refere nce interval change CALCIUM 10.2 8.7 - 10.2 mg/dL [facility] Total Protein 7.8 6.0 - 8.5 g/dL [facility] 1 Albumin, Serum 4.8 3.5 - 5.5 g/dL [facility] 1 Globulin, Total 3.0 1.5 - 4.5 g/dL [facility] 1 Albumin/Globulin Ratio 1.6 1.2 - 2.2 [facility] 1 Total Bilirubin 0.4 0.0 - 1.2 mg/dL [facility] 1 Alkaline Phosphatase 67 39 - 117 IU/L [facility] 1 AST 24 0 - 40 IU/L [facility] 1 ALT (SGPT) 18 0 - 32 IU/L [facility] Blood 12/09/2017 4:06 PM EDT 12/09/2017 Narrative [facility] - 12/10/2017 11:35 PM EDT Performed at: ??01 - [facility] [address] ??[id number] Analyst Sales: Aidan Johnson MD, Phone: ??[phone] Yvonne Reyes MD LAB BLOOD ORDERABLES [facility] * TSH (12/09/2017 4:06 PM EDT) TSH 1.130 0.450 - 4.500 uIU/mL [facility] 1 Blood 12/09/2017 4:06 PM EDT 12/09/2017 Narrative [facility] - 12/10/2017 5:39 AM EDT Performed at: ??01 - [facility] [address] ??[id number] Analyst Sales: Aidan Johnson MD, Phone: ??[phone] Yvonne Reyes MD LAB BLOOD ORDERABLES [facility] documented in this encounter Visit Diagnoses Diagnosis Cough- Primary Anxiety Anxiety state, unspecified Syncope, vasovagal documented in this encounter Care Teams Manager Truck Relationship Specialty Start Date End Date Yvonne Reyes MD PCP - General Internal Medicine 11/21/17 12/19/20 documented as of this encounter
--- OUTSIDE RECORDS SUMMARY | 2024-06-18 11:49 | XMS_ITS | Encounter Summary ---
Author Organization [facility] Address [address] [facility] [place] [address] Care Team Providers Care Repair Supervisor Name Role Phone Yvonne Reyes MD Primary Care Provider Isaiah ayers Reason for Visit * Reason Comments Medication Refill Encounter Details Date Type Department Care Team (Late st Contact Info) Description 11/17/2018 10:15 AM EDT Office Visit [facility] [id number] [place] [address] Yvonne Reyes MD Anxiety (Primary Dx) Social [...] Sign Reading Time Taken Comments Blood Pressure 100/60 11/17/2018 10:40 AM EDT Pulse 86 11/17/2018 10:40 AM EDT Temperature 37.1 ??C (98.8 ??F) 11/17/2018 10:40 AM E DT Respiratory Rate 16 11/17/2018 10:40 AM EDT Oxygen Saturation 98% 11/17/2018 10:40 AM EDT Inhaled Oxygen Concentration - - Weight 64 kg (141 lb) 11/17/2018 10:40 AM EDT Height 170.2 cm (5' 7 ) 11/17/2018 10:40 AM EDT Body Mass Index 22.08 11/17/2018 10:40 AM EDT documented in this encounter Patient Instructions * Patient Instructions* Yvonne Reyes MD - 11/17/2018 11:03 AM EDT Images from the original note were not included. Patient Education Syncope (Fainting) The Basics Written by the doctors and editors at [facility] What is syncope???--?? Syncope is the medical term for fainting. After fainting, a person quickly comes to and is OK again. Syncope is very common. About 1 out of every 3 people has it at some point in life. In many cases, syncope is nothing to worry about. What causes syncope???--??Syncope happens when the brain temporarily doesn't get enough blood. One of the most common reasons this happens is called vasovagal syncope. If you have vasovagal syncope, your body has a reaction in which your heart beats too slowly or your blood vessels expand (or both). This can happen for lots of different kinds of reasons. People can have vasovagal syncope if they: ?? Have stress from fear or pain (for example, because they are injured or have blood taken for tests) ?? Stand for too long or are over-tired or overheated ?? Have an unusual reaction to urinating, coughing, or other body functions Sometimes vasovagal syncope happens with no clear cause. People can also have syncope that is not vasovagal. This can happen due to the following problems: ?? The heart beats too quickly or too slowly because of problems with the heart's electrical systemor because of side effects from some medicines. ?? Something blocks the flow of blood in the heart. This can happen in people who have conditions called aortic stenosis (a valve disease) or hypertrophic cardiomyopathy (a heart muscle disease). ?? Your blood pressure drops when you stand or sit up. That can happen if you: ? Do not drink enough water ? Take certain medicines that cause your blood pressure to drop ? Drink alcohol ? Lose a lot of blood (for example, if you get hurt) ? Have a medical condition that affects your blood pressure Is syncope dangerous???--??In many cases it is not dangerous. But it can be dangerous if you fall and hurt yourself when you faint. It can also be dangerous if you faint while driving. To be safe, check with your doctor or nurse before you start driving again after you faint. Should I see a doctor or nurse???--??Yes. Anyone who faints should see a doctor or nurse. Most cases of syncope are not serious. But people can get hurt when they faint. Plus, in some cases syncope is caused by a serious medical condition that should be treated. Knowing what caused you to faint canhelp you prevent it from happening again. Tell your doctor or nurse what happened before, during, and after you fainted. If someone was with you when you fainted, that person might be able to tell you what happened. The following informationis helpful: ?? What were you doing before you passed out? ?? How were you feeling before you passed out? ?? How long were you passed out? ?? How well did you recover? ?? Any past history of fainting? ?? A list of the medicines you take ?? Any medical conditions you might have Your doctor or nurse will ask you a few questions and do an exam. During the exam, the doctor or nurse might: ?? Check your blood pressure and heart rate when you are lying down, sitting, or standing ?? Listen to your heart to check whether something might be wrong with your heart valves or heart muscle Will I need tests???--??Yes. Your doctor will do a test called an electrocardiogram (also called an ECG ). For this test, the doctor will put sticky pads on your chest, belly, arms, and legs. Long, thin wires connect the pads to a machine (figure 1). The device records the electrical activity in your heart. This can show if the pattern of your heartbeats is abnormal. You might get other tests, too. These could include 1 or more of the following: ?? Echocardiogram (also called an echo ) - This test uses sound waves to create an image of the heart (figure 2). It allows the doctors to measure the ontiveros and chambers of the heart, see how the heart is pumping and check how the heart valves are working. Heart valves are flaps of tissue that open and close like swinging doors. They help keep blood moving in one direction. ?? Carotid sinus massage - For this test, a doctor presses on a blood vessel in your neck while watching your electrocardiogram. This can show if your blood vessel is too sensitive to pressure. ?? Home heart monitor - For home monitoring, you might wear or carry a device around at home. You will keep doing normal activities. One type of monitor records all your heart beats for 1 or 2 days (figure 3). With others, you push a button to record heart beats when you feel symptoms (figure 4). ?? Tilt table test - For this test, you lie flat on a table. Your doctor then monitors your heartbeats and blood pressure while your body is tilted with your head up (figure 5). Can syncope be prevented???--??You might be able to reduce your chances of fainting again if you: ?? Learn what causes your syncope: ? If an activity or condition causes your syncope, you can try to avoid it. ? If a medicine causes your syncope, your doctor can help you find an alternative. ? If a heart condition is causing your syncope, your doctor can suggest a treatment. ?? Lay down with your feet up when you feel like you might faint. How is syncope treated???--??That depends on what is causing your syncope. In many cases, the main treatment is to avoid the situations that cause syncope. In less common cases, other treatment might be needed. For example, you might need a pacemaker if your heart beats too slowly and this causes syncope. A pacemaker is a device that is put under your skin. Thin wires attach them to your heart. They help the heart beat at a normal speed or in a regular pattern. What if my child faints???--??If your child faints, you should take him or her to see a doctor. Most cases of syncope in children are not serious. Often they are caused by vasovagal syncope. Syncope can also happen in children if: ?? They hold their breath for too long ?? Their blood pressure drops when they stand or sit up ?? They swallow medicines, drugs, or alcohol ?? They have carbon monoxide poisoning In less common cases, syncope in children can be caused by a life-threatening condition, such as a serious heart condition, overheating, or a severe allergic reaction (called anaphylaxis). All topics are updated as new evidence becomes available and our peer review process is complete. This topic retrieved from [employer] on: Jul 08, 2018. Topic 34335 Version 10.0 Release: 26.5.5 - C27.6 ?2019??[employer], Inc. and/or its affiliates.??All rights reserved. figure 1: Person having an ECG This drawing shows a man having an ECG (also called an electrocardiogram or EKG). He has patches, called electrodes, stuck onto his chest, arms, and legs. Wires run from the electrodes to the ECG machine. An ECG measures the electrical activity in the heart. Graphic 13554 Version 2.0 figure 2: Transthoracic echocardiogram (echo) This picture shows a person getting an echocardiogram (or echo ). To do an echo, a doctor or nurseputs some gel on a person's chest. He or she presses a thick wand (called a transducer ) against the chest and moves it around. An echo uses sound waves to create images of the heart that appear on a computer screen. A test called an electrocardiogram (ECG) is done during an echo. For an ECG, patches (called electrodes ) are stuck to a person's chest. Wires run from the patches to a machine that records the electrical activity of the heart. Graphic 07947 Version 4.0 figure 3: Holter monitor People with possible heart problems are sometimes asked to wear a device called a Holter monitor for 1 or 2 days. The device measures the electrical activity in the heart. It helps doctors pinpoint heart rhythm problems. You will have electrodes stuck to your chest that are connected to wires leading to the monitor. These electrodes tell the monitor how often your heart beats and if it has a normal rhythm. While you have a Holter monitor on, you should do your normal activities but keep the electrodes, wires, and device dry. Some people have an abnormal heart rhythm only during certain activities or certain times of the day. Graphic 60862 Version 8.0 figure 4: Cardiac event recorder An event recorder is a portable device patients can use to measure their heart rhythm for a short time. The patient must activate the recorder and hold it to the chest when they feel symptoms. It is useful for patients that have intermittent symptoms that may not be captured with other forms of testing. Graphic 37919 Version 4.0 figure 5: Tilt table test During a tilt table test, a doctor or nurse tilts your body at different angles. At the same time, he or she monitors your blood pressure and your heart's electrical activity. Your body's response tothe changes in position can help your doctor or nurse figure out what, if anything, is wrong with your heart. Graphic 87392 Version 5.0 Consumer Information Use and Disclaimer This information is not specific medical advice and does not replace information you receive from your health care provider. This is only a brief summary of general information. It does NOT include all information about conditions, illnesses, injuries, tests, procedures, treatments, therapies, discharge instructions or life-style choices that may apply to you. You must talk with your health care provider for complete information about your health and treatment options. This information should not be used to decide whether or not to accept your health care provider's advice, instructions or recommendations. Only your health care provider has the knowledge and training to provide advice that is right for you.The use of [employer] content is governed by the [employer] Terms of Use. ??2019 [employer]. All rights reserved. Copyright ?2019??[employer] and/or its affiliates.??All rights reserved. documented in this encounter Progress Notes * Yvonne Reyes MD - 11/17/2018 10:58 AM EDT Images from the original note were not included. Jeannine Keene is a 23 y.o. female Chief Complaint Patient presents with ??? 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 The Lexapro blunted her anxiety for the last semester but did not cause any indifference or apathy. She was able to make straight days. She is sleeping well. No signs of depression she says. There is no problem list on file for this patient. Allergies Allergen Reactions ??? Sulfa Antibiotics Rash Outpatient Medications Marked as Taking for the 11/17/18 encounter (Office Visit) with Yvonne Reyes MD Medication Sig Dispense Refill ??? escitalopram oxalate (LEXAPRO) 10 mg tablet Take one tablet (10 mg dose) by mouth daily. 30 tablet 0 ??? fluticasone propionate (FLONASE) 50 mcg/actuation nasal spray two sprays by Nasal route daily. 16 g 5 ??? omeprazole (PRILOSEC) 20 mg capsule Take 1 a day 30 capsule 1 ??? omeprazole (PRILOSEC) 40 mg capsule TAKE ONE CAPSULE BY MOUTH EVERY DAY ON AN EMPTY STOMACH 30 MINS BEFORE BREAKFAST 11 ??? SRONYX 0.1-20 MG-MCG per tablet TAKE 1 TABLET BY MOUTH EVERY DAY 6 History reviewed. No pertinent past medical history. History reviewed. No pertinent surgical history. Social History Socioeconomic History ??? Marital status: Single Spouse name: Not on file ??? Number of children: 0 ??? Years of education: Not on file ??? Highest education level: Not on file Occupational History ??? Not on file Social Needs ??? Financial resource strain: Not on file ??? Food insecurity: Worry: Not on file Inability: Not on file ??? Transportation needs: Medical: Not on file Non-medical: Not on file Tobacco Use ??? Smoking status: Never Smoker ??? Smokeless tobacco: Never Used Substance and Sexual Activity ??? Alcohol use: Yes Comment: 2 times weekly ??? Drug use: No ??? Sexual activity: Not on file Lifestyle ??? Physical activity: Days per week: Not on file Minutes per session: Not on file ??? Stress: Not on file Relationships ??? Social connections: Talks on phone: Not on file Gets together: Not on file Attends sikh service: Not on file Active member of club or organization: Not on file Attends meetings of clubs or organizations: Not on file Relationship status: Not on file ??? Intimate partner violence: Fear of current or ex partner: Not on file Emotionally abused: Not on file Physically abused: Not on file Forced sexual activity: Not on file Other Topics Concern ??? 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 Head: Normocephalic, atraumatic Eyes: Pupils are equal, round, and reactive to light. Normal conjunctiva, Extraocular movements intact NECK: normal ROM CV: Regular rate and rhythm. No murmurs or gallops noted. Lungs: normal respiratory effort, clear. No wheezes or rhonchi noted. Abdomen: +BS, soft, nontender, no masses, no HSM Extremities: No clubbing, cyanosis, or edema psych: Normal mood and affect. Psych. Normal mood and affect PHQ-9 score 2. Not suicidal. Assessment and Plan: Anxiety- well controlled on Lexapro 10 mg daily with no significant intolerance noted. Refill provided (30 refill x5). She is considering changing to 90-day, mail order, but prefers to wait and address that later after she goes back to [place] for school. Patient's Medications Accurate as of 11/17/18 10:58 AM. Reflects encounter med changes as of last refresh Continued Medications Instructions escitalopram oxalate 10 mg tablet Commonly known as: LEXAPRO 10 mg, Oral, Daily fluticasone propionate 50 mcg/actuation nasal spray Commonly known as: FLONASE 2 sprays, Nasal, Daily * omeprazole 40 mg capsule Commonly known as: PRILOSEC TAKE ONE CAPSULE BY MOUTH EVERY DAY ON AN EMPTY STOMACH 30 MINS BEFORE BREAKFAST * omeprazole 20 mg capsule Commonly known as: PRILOSEC Take 1 a day SRONYX 0.1-20 MG-MCG per tablet Generic drug: levonorgestrel-ethinyl estradiol TAKE 1 TABLET BY MOUTH EVERY DAY * This list has 2 medication(s) that are the same as other medications prescribed for you. Read thedirections carefully, and ask your doctor or other care provider to review them with you. F/U in 6 mos or sooner as needed The patient/family voices understanding of all medications. [...] unspecified documented in this encounter Care Teams Repair Supervisor Relationship Specialty Start Date End Date Yvonne Reyes MD PCP - General Internal Medicine 11/21/17 12/19/20 documented as of this encounter
--- OUTSIDE RECORDS SUMMARY | 2024-06-18 11:49 | XMS_ITS | Encounter Summary ---
Author Organization [facility] Address [address] [place] [address] Care Team Providers Care Tool Pusher Name Role Phone Unavailable Primary Care Provider Unavailabl e Encounter Details Date Type Department Care Team (Late st Contact Info) Description 05/05/2012 7:19 AM [facility] Hospital Encounter [facility] [address] [place] [address] [place] [address] [place] [address] Social History Tobacco Use Types Packs/Day Years [...]
--- OUTSIDE RECORDS SUMMARY | 2024-06-18 11:49 | XMS_ITS | Encounter Summary ---
Author Organization [facility] Address [address] [place] [address] Care Team Providers Care Equipment Driver Name Role Phone Unavailable Primary Care Provider Unavailabl e Encounter Details Date Type Department Care Team (Late st Contact Info) Description 04/17/2017 Care Coordinates Care Coordinates [address] [address] Gabrielle Baeza RN Counseling on health promotion and disease [...]
--- OUTSIDE RECORDS SUMMARY | 2024-06-18 11:49 | XMS_ITS | Encounter Summary ---
Author Organization [facility] Address [address] [facility] [address] [facility] [place] [address] Care Team Providers Care Business Continuity Global Director Name Role Phone Yvonne Reyes MD Primary Care Provider Isaiah ayers Reason for Visit * Reason Comments Cough prilosec given by EN T- upset stomach Encounter Details Date Type Department Care Team (Late st Contact Info) Description 01/21/2018 9:45 AM EDT [facility] Visit [facility] [address] [facility] [address] [place] [address] Yvonne Reyes MD Anxiety (Primary Dx); Gastroesophageal reflux disease, esophagitis presence not specified; Cough Social History Tobacco Use Types Packs/Day [...] Sign Reading Time Taken Comments Blood Pressure 112/68 01/21/2018 9:47 AM EDT Pulse 92 01/21/2018 9:47 AM EDT Temperature - - Respiratory Rate - - Oxygen Saturation 98% 01/21/2018 9:47 AM EDT Inhaled Oxygen Concentration - - Weight 59.4 kg (131 lb) 01/21/2018 9:47 AM EDT Height - - Body Mass Index 20.21 11/29/2017 9:31 AM EDT documented in this encounter Progress Notes * Yvonne Reyes MD - 01/22/2018 8:42 PM EDT Jeannine Keene is a 22 y.o. female Chief Complaint Patient presents with ??? Cough prilosec given by ENT- upset stomach She was here November 29 and with a c/o an irritative cough. Please see those notes. It has not resolved and she and her mother suspect it may be related to anxiety. It does not occur when she is asleep or if she is focused on something else. She saw ENT and they saw some GERD apparently and advised omeprazole 40 mg once a day. She did not end up taking it every day due to nausea on the 40 mg do se. She had an URI in the interim and was seen at [facility] and says a strep screen and mono test were negative. 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 She tried Flonase and Marily and a course of Omnicef and eventually a steroid taper but symptoms did not resolve. A CXR on November 29 showed NAD. Allergies Allergen Reactions ??? Sulfa Antibiotics Rash No outpatient prescriptions have been marked as taking for the 01/21/18 encounter (Office Visit) with Yvonne Reyes MD. 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 HEENT: [place]/AT, PERRL, EOMI, oropharynx benign, TMs clear NECK: normal ROM CV: Regular rate and rhythm. No murmurs or gallops noted. Lungs: normal respiratory effort, clear. No wheezes or rhonchi noted. Abdomen: +BS, soft, nontender, no masses, no HSM Extremities: No clubbing, cyanosis, or edema Psych: appears mildly anxious Skin: no rash noted Assessment and Plan: Persistent cough 1. Anxiety 2. Gastroesophageal reflux disease, esophagitis presence not specified The cough may be multifactorial and GERD may be contributing so suggested she take Omeprazole 20 mgdaily since she cannot tolerate the 40 mg Anxiety- reviewed treatment options in detail. She can try Lexapro 10 mg 1/2 a tablet once a day for 1 week and then increase to 1 a day. Medication use and precautions reviewed. Consider counseling. Exercise. Reviewed ENT consult note with patient. Increase water intake. Continue Flonase. ENT follow up. Consider pulmonary referral but she wants to see how she does with anxiety treatment as the next step. Follow-up : 2 weeks. Patient's Medications Accurate as of 01/21/18 11:59 PM. Reflects encounter med changes as of last refresh New Prescriptions Instructions escitalopram oxalate 10 mg tablet Commonly known as: LEXAPRO Take 1/2 a tablet for 1 week and then increase to 1 a day Continued Medications Instructions fluticasone propionate 50 mcg/actuation nasal spray Commonly known as: FLONASE 2 sprays, Nasal, Daily SRONYX 0.1-20 MG-MCG per tablet Generic drug: levonorgestrel-ethinyl estradiol TAKE 1 TABLET BY MOUTH EVERY DAY Modified Medications Instructions * omeprazole 40 mg capsule Commonly known as: PRILOSEC What changed: Another medication with the same name was added. Make sure you understand how and when to take each. TAKE ONE CAPSULE BY MOUTH EVERY DAY ON AN EMPTY STOMACH 30 MINS BEFORE BREAKFAST * omeprazole 20 mg capsule Commonly known as: PRILOSEC What changed: You were already taking a medication with the same name, and this prescription was added. Make sure you understand how and when to take each. Take 1 a day * This list has 2 medication(s) that are the same as other medications prescribed for you. Read thedirections carefully, and ask your doctor or other care provider to review them with you. Discontinued Medications benzonatate 100 mg capsule Commonly known as: TESJESSICA WILLIAM predniSONE 10 mg tablet Commonly known as: DELTASONE Follow-up : 2 weeks. Return to clinic sooner as needed. The [...] Diagnoses Diagnosis Anxiety- Primary Anxiety state, unspecified Gastroesophageal reflux disease, esophagitis presence not specified Cough documented in this encounter Care Teams Business Continuity Global Director Relationship Specialty Start Date End Date Yvonne Reyes MD PCP - General Internal Medicine 11/21/17 12/19/20 documented as of this encounter
--- OUTSIDE RECORDS SUMMARY | 2024-06-18 11:50 | XMS_ITS | Encounter Summary ---
Author Organization [facility] Address [address] [place] [address] Care Team Providers Care Concrete Building Assembler Name Role Phone Yvonne Reyes MD Primary Care Provider Isaiah ayers Reason for Referral * Consultation (Emergency) - Closed Specialty Diagnoses / Procedures Referred By Neetu aparicio Referred To Contact Otolaryngology Diagnoses Vocal fold edema Driss Jama MD [facility] [address] [address] Phone: tel: fax: Referral ID Status Reason Start Date Expiration Date Visits Re quested Visits Authorized [id number] Closed 08/05/2018 08/05/2019 5 5 Comments Speech Pathology consultation is requested for a comprehensive voice evaluation including videolaryngostroboscopy (CPT codes 66021, 64638) with up to 12 sessions of voice therapy (CPT 59096) as indicated, for the diagnosis of dysphonia. The speech pathology evaluation was completed today and reviewed by me (medical diagnoses shown above), with approval of the Plan of Care, as outlined in the speech pathologist's evaluation report. Reason for Visit * Reason Comments Cough * Consultation (Routine) - Closed Specialty Diagnoses / Procedures Referred By Neetu aparicio Referred To Contact Otolaryngology Diagnoses Cough, persistent Tickle in throat Throat clearing Throat tightness Ananth Euceda MD Phone: tel: fax: Referral ID Status Reason Start Date Expiration Date Visits Re quested Visits Authorized [id number] Closed 02/27/2018 02/27/2019 1 1 Encounter Details Date Type Department Care Team (Latest Contact Info) Description 08/05/2018 3:30 PM EST Office Visit [facility] [address] [place] [phone] Driss Jama MD [address] [phone] Vocal fold edema (Primary Dx); Cough, persistent; Anxiety, generalized Social History Tobacco Use Types Packs/Day Years Used Date Smoking Tobacco: Never Smokeless Tobacco: Never Comments Unknown Sex and Gender Information Value Date Recorded Sex Assigned at Not on file Legal Sex Female 10:50 AM EDT Gender Identity Not on file Sexual Orientation Not on file documented as of this encounter Last Filed Vital Signs Vital Sign Reading Time Taken Comments Blood Pressure 131/79 08/05/2018 3:50 PM EST Pulse 83 08/05/2018 3:50 PM EST Temperature - - Respiratory Rate - - Oxygen Saturation - - Inhaled Oxygen Concentration - - Weight 60.9 kg (134 lb 4.2 oz) 08/05/2018 3:50 P M EST Height 170.2 cm (5' 7 ) 08/05/2018 3:50 PM EST Body Mass Index 21.03 08/05/2018 3:50 PM EST documented in this encounter Progress Notes * Hortencia Pozo RMA - 08/05/2018 3:30 PM EST Review of Systems HENT: Positive for sore throat and trouble swallowing. Nasal drainage/congestion Respiratory: Positive for cough. Allergic/Immunologic: Positive for environmental allergies. Psychiatric/Behavioral: The patient is nervous/anxious. All other systems reviewed and are negative. * Driss Jama MD - 08/05/2018 3:30 PM EST This is a 23 year old female who comes to see me for evaluation of cough x 12 months at the requestof Dr Euceda. Feels a tickle in her throat and throat tightness. Never smoker. Has tried breio, steroid taper, tessalon, prilosec, omnicef, flonase, larry. Negative CXR. No ACEI. Negative allergy testing. Cough is dry. Trigger - talking, laughing, not odors, cold, exertion, sometimes swallowing. She started lexapro has helped with anxiety. Drinks 3 water and 1 caffeine. Has tried cough drops. Cough is worse in the car. Rates voice 6/10. 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 A full review of systems was obtained from the patient and is documented in the Nursing Progress note. I have reviewed this information and discussed as appropriate with the patient; all other systems are negative. Patient is a well-nourished female alert, oriented, cooperative, in no apparent distress. Carotid pulses symmetric and strong. Normal TMJ ROM, nontender. No cervical lymphadenopathy noted. Thyroid palpates as normal, no masses or nodules noted. Voice: Voice quality strained, glottal faith, frequent throat clearing. No stridor noted. Head and Face: No abnormalities noted. Skin is without ulceration. Eyes, Ears, Nose: No abnormalities noted. Oral Cavity: No abnormalities noted. PROCEDURES: Videostroboscopy was performed by speech pathology and reviewed by me after the nose was anesthetized with topical Tetracaine and Oxymetazoline to evaluate for vocal fold lesions, closure, and vibration. Photo documentation was obtained and shown to the patient/family. Pertinent findings include: Nasopharynx: Clear. Hypopharynx: No masses or abnormalities. No signs of reflux or post-cricoid edema. Larynx: Vocal folds are mobile for AB-duction and AD-duction. Good symmetric periodic vibration of the vocal cords is noted. Bilateral vocal fold edema. Complications: none Condition: Stable. Patient tolerated the procedure well. Impression: ICD-10-CM ICD-9-CM 1. 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 Cough, persistent R05 786.2 3. Anxiety, generalized F41.1 300.02 Plan: I explained it is important to increase hydration keep the caffeine to a minimum. Menthol, mint and eucalyptus are also important to avoid. I have given a handout about appropriate lozenges. Wetalked about minimizing the throat clearing and taught ways of minimizing the throat clearing. I explained how the throat clearing leads to more throat clearing and cough due to the chronic trauma that it causes. We talked about the cough interruption and distraction strategies and introduced those. I will set up for voice therapy to go over those again. I will reevaluate in 2 months time. Call if ear pain, weight loss, worsening voice, swallowing or breathing. Issues concerning treatment and diagnosis were discussed with the patient. There were no barriers to understanding the plan of treatment. Explanation was well received by patient, who then verbalizedunderstanding. I personally performed or jointly provided the services with an auxiliary provider (RN, graphic arts technician,etc.) but there was no involvement of a resident or fellow. DRISS JAMA documented in this encounter Plan of Treatment Scheduled Referrals Name Type Priority Associated Diagnoses Order Schedule Ambulatory Referral to [facility] Outpatient Referral STAT Vocal fold edema Ordered: 08/05/2018 documented as of this encounter Visit Diagnoses Diagnosis Vocal fold edema- Primary Edema of larynx Cough, persistent Anxiety, generalized documented in this encounter Care Teams Concrete Building Assembler Relationship Specialty Start Date End Date Yvonne Reyes MD PCP - General Internal Medicine 02/21/18 documented as of this encounter
--- OUTSIDE RECORDS SUMMARY | 2024-06-18 11:50 | XMS_ITS | Encounter Summary ---
Author Organization [facility] Address [address] [place] [address] Care Team Providers Care Wrapper Rewinder Name Role Phone Yvonne Reyes MD Primary Care Provider Isaiah ayers Reason for Visit * Consultation (Emergency) - Closed Specialty Diagnoses / Procedures Referred By Neetu aparicio Referred To Contact Otolaryngology Diagnoses Vocal fold edema Gamaliel Jama MD [address] [place] [phone] Phone: tel: fax: Referral ID Status Reason Start Date Expiration Date Visits Re quested Visits Authorized [id number] Closed 08/05/2018 08/05/2019 5 5 Encounter Details Date Type Department Care Team (Latest Contact Info) Description 08/22/2018 11:30 AM EST Procedure visit [facility] [address] [phone] Ashli Cruz CCC-SECURITY AMBASSADOR [address] [place] [id number] Dysphonia (Primary Dx); Chronic cough; Muscle tension dysphonia Social History Tobacco Use Types Packs/Day Years Used Date Smoking Tobacco: Never Smokeless Tobacco: Never Comments Unknown Sex and Gender Information Value Date Recorded Sex Assigned at Not on file Legal Sex Female 10:50 AM EDT Gender Identity Not on file Sexual Orientation Not on file documented as of this encounter Progress Notes * Ashli Cruz CCC-SECURITY AMBASSADOR - 08/22/2018 11:30 AM EST [facility] Division of Head and Neck Surgery & Communication Sciences Department of Surgery [place]: [facility] [address] [place] [address] [place]: [facility] [address], [address] [place] [address] [place]: [facility] [address] [facility], [address] [place] [address] Referring Physician: Gamaliel Jama MD Type of treatment: Voice therapy (CPT 33656) Total treatment time: 45 minutes Medical Diagnosis: chronic cough, MTD Communication Diagnosis: Dysphonia R49.0 (784.42) Subjective: Pain rating (0-10 scale, 0=no pain, 10=worst pain): 0 Voice rating (0-10 scale, 0=no voice, 10=WNL): 6 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 To improve vocal quality, vocal hygiene and voice projection, and to prevent vocal fatigue. Short Term Goals and progress: (Criteria is 80% accuracy unless otherwise stated). Where appropriate, goals are established at thesound/syllable/word/phrase level and progress to conversation level speech. 1. The patient will increase hydration for an eventual goal of 6-8 glasses per day and limit caffeine intake (to maximum of 1-2, 8 oz cups/day), as measured by patient report. Progress: Water 5 2. The patient will eliminate phonotraumatic behaviors such as chronic throat clearing, by substituting non-traumatic methods to clear mucus. Progress: Frequent TC, leading to cough. Using SOVT best for reducing TC. Sensation of globus leadsto TC. Mainly related to MTD 3. The patient will perform laryngeal control and breathing exercises (relaxed throat breathing or pursed lip breathing) without tension. Progress: Reviewed relaxed throat breathing (pursed lip breathing), but pt can't use to prevent cough. However, she will use this with lower abdominal breathing to make sure she is not holding her breath. 4. The patient will decrease the frequency and phonotrauma/forcefulness of cough by utilizing coughinterruption, distraction, and laryngeal control techniques. Progress: cough interruption and distraction strategies not helpful so far. Cough related to MTD, so tension reduction was more helpful today 5. The patient will increase awareness of cough/irritable larynx symptoms, keep a diary to identifyother triggers for symptoms, and record effectiveness of laryngeal control strategies. Progress: met 6. The patient will indicate understanding of etiologic triggers for laryngeal hypersensitivity andwill comply with medical management, as outlined by the patient???s physician. Progress: met 7. The patient will demonstrate abdominal breathing patterns and steady release of breath on exhalation to optimize efficiency of voicing and decrease laryngeal hyper function. Progress: lower abdominal breathing introduced, emerging. Notably poor breath flow with talking. Arm gesture/chanting both helpful. 8. The patient will complete vocal function exercises without laryngeal tension (based on Dr. Cosme Watson's protocol, designed to balance laryngeal musculature, breath flow for phonation, and supraglottic placement of the tone). Progress: Cup bubbles, lip buzz coffee stirrer phonation all resulted in open throat. Pt felt better, less globus. Tongue stretches and BOT massage also reduced tension. 9. The patient will utilize a forward tone focused/resonant voice to decrease vocal hyperfunction and improve voice quality and vocal projection. Progress: Introduce next session Assessment: ICD-10-CM ICD-9-CM 1. Dysphonia R49.0 784.42 2. 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 Dysphonia Severity: Mild with chronic cough/throat clear/globus Prognosis for improvement in voice and cough/TC is Excellent based on Patient's insight & understanding, Stimulability for improvement during diagnostic therapy, Motivation, Demonstration of improved vocal quality during diagnostic therapy today and Reduction of symptoms in response to diagnostic therapy today Plan: CONTINUE TREATMENT FOR 3-4 SESSIONS Ashli Crzu MS, CCC-SECURITY AMBASSADOR [facility] documented in this encounter Plan of Treatment Not on file documented as of this encounter Visit Diagnoses Diagnosis Dysphonia- Primary Chronic cough Cough Muscle tension dysphonia Other diseases of larynx documented in this encounter Care Teams Wrapper Rewinder Relationship Specialty Start Date End Date Yvonne Reyes MD PCP - General Internal Medicine 02/21/18 documented as of this encounter
--- OUTSIDE RECORDS SUMMARY | 2024-06-18 11:50 | XMS_ITS | Encounter Summary ---
Author Organization [facility] Address [address] [place] [address] Care Team Providers Care Cell Efficiency Supervisor Name Role Phone Yvonne Reyes MD Primary Care Provider Isaiah ayers Encounter Details Date Type Department Care Team (Late st Contact Info) Description 02/27/2018 OnBase Documentation On File [address] [place] [address] Social History Tobacco Use Types Packs/Day Years [...] on filedocumented in this encounter Care Teams Cell Efficiency Supervisor Relationship Specialty Start Date End Date Yvonne Reyes MD PCP - General Internal Medicine 02/21/18 documented as of this encounter
--- OUTSIDE RECORDS SUMMARY | 2024-06-18 11:50 | XMS_ITS | Referral Summary ---
Author Organization [facility] Address [address] [place] [address] Care Team Providers Care Broadcast Designer Name Role Phone Yvonne Reyes MD Primary Care Provider Isaiah ayers Allergies Active Allergy Reactions Criticality Noted Date Comments Sulfa (Sulfonamide Antibiotics) Rash Low 12/29 Medications levonorgestrel- ethinyl estradiol (ORSYTHIA) 0.1-20 mg-mcg tablet 06/09/2015 Active escitalopram oxalate (LEXAPRO) 10 MG tablet Take 1/2 a tablet for 1 week and then increase to 1 a day 01/21/2018 Active fexofenadine (LINDSAY) 180 MG tablet Take by mouth. Active Active Problems Problem Noted Date Diagnosed Date SOB (shortness of breath) 02/27/2018 Restrictive ventilatory defect 02/27/2018 Anxiety, generalized 02/27/2018 Throat clearing 02/27/2018 Tickle in throat 02/27/2018 Throat tightness 02/27/2018 Bronchospasm 02/27/2018 Social History Tobacco Use Types Packs/Day Years Used Date Smoking Tobacco: Never Smokeless Tobacco: Never Comments No Sex and Gender Information Value Date Recorded Sex Assigned at Not on file Legal Sex Female 10:50 AM EDT Gender Identity Not on file Sexual Orientation Not on file Last Filed Vital Signs Vital Sign Reading Time Taken Comments Blood Pressure 118/78 10/07/2018 1:08 PM EDT Pulse 97 10/07/2018 1:08 PM EDT Temperature - - Respiratory Rate 16 02/27/2018 8:44 AM EDT Oxygen Saturation 99% 02/27/2018 8:44 AM EDT Inhaled Oxygen Concentration - - Weight 60.8 kg (134 lb) 10/07/2018 1:08 PM EDT Height 170.2 cm (5' 7 ) 10/07/2018 1:08 PM EDT Body Mass Index 20.99 10/07/2018 1:08 PM EDT Plan of Treatment Not on file Care Teams Broadcast Designer Relationship Specialty Start Date End Date Yvonne Reyes MD PCP - General Internal Medicine 02/21/18
--- OUTSIDE RECORDS SUMMARY | 2024-06-18 11:50 | XMS_ITS | Clinical Summary ---
Author Organization Pending sale to [facility] Address [address] [place] [address] Care Team Providers Care Enterprise Architect Manager Name Role Phone Yvonne Reyes MD Primary [...] throat 02/27/2018 Throat tightness 02/27/2018 Bronchospasm 02/27/2018 Family History Medical History Relation Comments Lung cancer Maternal Grandfather Asthma Maternal Grandmother COPD Maternal Grandmother Relation Status Comments Maternal Grandfather Alive Maternal Grandmother Alive Social History Tobacco Use Types Packs/Day [...] 10/07/2018 1:08 PM EDT Plan of Treatment Health Maintenance Due Date Last Done Comments HIV Screen 1996 Hepatitis C Screen 1996 Lipid Panel 1996 Pap Smear 1996 Annual Visit/Physical/Well C hild Check 11/30/1998 Depression Screening 01/30/2007 Varicella Vaccines (1 of 2 - 13+ 2-dose series) 01/30/2009 Adult Tetanus (Td And Tdap) 01/30/2014 COVID-19 Vaccine (2023-2 5 season) 2024 Influenza Vaccine (#1) 2024 07/10/2017 HPV Vaccines Aged Out No longer eligi ble based on patient's age to complete this topic Hepatitis A Vaccines Aged Out No long er eligible based on patient's age to complete this topic Hib Vaccines Aged Out No longer eligi ble based on patient's age to complete this topic Meningococcal ACWY Vaccine Aged Out N o longer eligible based on patient's age to complete this topic Pneumococcal Vaccine Aged Out No long er eligible based on patient's age to complete this topic Care Teams Enterprise Architect Manager Relationship Specialty Start Date End Date Yvonne Reyes MD PCP - General Internal Medicine 02/21/18
--- OUTSIDE RECORDS SUMMARY | 2024-06-18 11:50 | XMS_ITS | Encounter Summary ---
Author Organization [facility] Address [address] [place] [address] Care Team Providers Care Transportation Dispatch Manager Name Role Phone Yvonne Reyes MD Primary Care Provider Isaiah ayers Reason for Visit * Consultation (Emergency) - Closed Specialty Diagnoses / Procedures Referred By Neetu aparicio Referred To Contact Otolaryngology Diagnoses Vocal fold edema Gamaliel Jama MD [address] [place] [phone] Phone: tel: fax: Referral ID Status Reason Start Date Expiration Date Visits Re quested Visits Authorized [id number] Closed 08/05/2018 08/05/2019 5 5 Encounter Details Date Type Department Care Team (Latest Contact Info) Description 08/29/2018 10:30 AM EST Procedure visit [facility] [address] [phone] Ashli Cruz CCC-SPINNING MACHINE OPERATOR [address] [place] [address] Dysphonia (Primary Dx); Chronic cough; Vocal cord edema; Muscle tension dysphonia Social History Tobacco Use Types Packs/Day Years Used Date Smoking Tobacco: Never Smokeless Tobacco: Never Comments Unknown Sex and Gender Information Value Date Recorded Sex Assigned at Not on file Legal Sex Female 10:50 AM EDT Gender Identity Not on file Sexual Orientation Not on file documented as of this encounter Progress Notes * Ashli Cruz CCC-SPINNING MACHINE OPERATOR - 08/29/2018 10:30 AM EST [facility] Division of Head and Neck Surgery & Communication Sciences Department of Surgery [place]: [address] [address] [place]: [facility] [address], [address] [place] [address] [place]: [facility] [address] [facility], [address] [place] [address] Referring Physician: Gamaliel Jama MD Type of treatment: Voice therapy (CPT 03638) Total treatment time: 45 minutes Medical Diagnosis: chronic cough, MTD, vocal fold edema Communication Diagnosis: Dysphonia R49.0 (784.42) Subjective: Pain rating (0-10 scale, 0=no pain, 10=worst pain): 0 Voice rating (0-10 scale, 0=no voice, 10=WNL): 6 Objective: Skilled Nursing Goal(s): To eliminate laryngeal hypersensitivity leading to [...] of globus leadsto TC. Mainly related to MTD. Pt finds it very tiring to be coughing all the time, also tiring to try and focus on changing it. I urged self compassion with this process of positive change. 3. The patient will perform laryngeal control [...] Cough related to MTD, so tension reduction is more helpful goal. She may try lozenges as a distraction. 5. The patient will increase awareness of cough/irritable larynx symptoms, keep a diary to identifyother triggers for symptoms, and record effectiveness of laryngeal control strategies. Progress: met 6. The patient will indicate understanding of etiologic triggers for laryngeal hypersensitivity andwill comply with medical management, as outlined by the patient???s physician. Progress: Triggers: talking, being tired. 7. The patient will demonstrate abdominal breathing patterns and steady release of breath on exhalation to optimize efficiency of voicing and decrease laryngeal hyper function. Progress: lower abdominal breathing emerging. Notably poor breath flow with talking. Arm gesture/chanting both helpful. Notes she often doesn't take a breath before speaking. Cue to release jaw with inhalation very helpful, phrases 60%, paired with arm gesture. 8. The patient will complete vocal function exercises without laryngeal tension (based on Dr. Cosme Watson's protocol, designed to balance laryngeal musculature, breath flow for phonation, and supraglottic placement of the tone). Progress: Cup bubbles, lip buzz coffee stirrer phonation all resulted in open throat. Pt felt better, less globus. Pt also doing tongue stretches and BOT massage to reduce tension. 9. The patient will utilize a forward tone focused/resonant voice to decrease vocal hyperfunction and improve voice quality and vocal projection. Progress: Introduced all training sounds, phrase level 60%. Chanting/arm gesture helpful. But reverts in conversation to very tight sound with faith/pressed. Assessment: ICD-10-CM ICD-9-CM 1. Dysphonia R49.0 784.42 2. Chronic cough R05 786.2 3. Vocal cord edema J38.4 478.6 4. 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 Continue to address breath holding. Jaw release, RVT helpful today Plan: CONTINUE TREATMENT FOR 3-4 SESSIONS Ashli Cruz MS, CCC-SPINNING MACHINE OPERATOR [facility] documented in this encounter Plan of Treatment Not on file documented as of this encounter Visit Diagnoses Diagnosis Dysphonia- Primary Chronic cough Cough Vocal cord edema Edema of larynx Muscle tension dysphonia Other diseases of larynx documented in this encounter Care Teams Transportation Dispatch Manager Relationship Specialty Start Date End Date Yvonne Reyes MD PCP - General Internal Medicine 02/21/18 documented as of this encounter
--- OUTSIDE RECORDS SUMMARY | 2024-06-18 11:50 | XMS_ITS | Encounter Summary ---
Author Organization [facility] Address [address] [place] [address] Care Team Providers Care Staff Nuclear Weapons Officer Name Role Phone Yvonne Reyes MD Primary Care Provider Isaiah ayers Reason for Referral * Consultation (Routine) - Closed Specialty Diagnoses / Procedures Referred By Neetu aparicio Referred To Contact Otolaryngology Diagnoses Cough, persistent Tickle in throat Throat clearing Throat tightness Ananth Euceda MD Phone: tel: fax: Referral ID Status Reason Start Date Expiration Date Visits Re quested Visits Authorized [id number] Closed 02/27/2018 02/27/2019 1 1 Comments Speech therapy evaluation as well. Reason for Visit * Reason Comments Establish Care Chronic Cough X 7-8 months, startalka d as a dry cough, has been to ENT and been scoped, was told she had acid reflux, has been on prilosec with no relief Cough went to [place] ED recen tly, nothing has helped the cough, gets worse at night, primarily a dry cough with rare clear mucus production Encounter Details Date Type Department Care Team (Late st Contact Info) Description 02/27/2018 8:30 AM EDT Initial consult [place] [facility] [address] [place] [id number] Ananth Euceda MD [address] [place] [address] Cough, persistent (Primary Dx); Restrictive ventilatory defect; SOB (shortness of breath); Anxiety, generalized; Tickle in throat; Throat clearing; Throat tightness; Bronchospasm Social History Tobacco Use Types Packs/Day Years [...] Reading Time Taken Comments Blood Pressure 118/78 02/27/2018 8:44 AM EDT Pulse 95 02/27/2018 8:44 AM EDT Temperature - - Respiratory Rate 16 02/27/2018 8:44 AM EDT Oxygen Saturation 99% 02/27/2018 8:44 AM EDT Inhaled Oxygen Concentration - - Weight 60.9 kg (134 lb 4.8 oz) 02/27/2018 8:44 A M EDT Height 170.2 cm (5' 7 ) 02/27/2018 8:44 AM EDT Body Mass Index 21.03 02/27/2018 8:44 AM EDT documented in this encounter Progress Notes * Ananth Euceda MD - 02/27/2018 8:30 AM EDT Images from the original note were not included. PULMONARY CONSULTATION ASSESSMENT/ORDERS: Problem List Items Addressed This Visit Unprioritized Tickle in throat Relevant Orders Ambulatory Referral to Otolaryngology Throat tightness Relevant Orders Ambulatory Referral to Otolaryngology Throat clearing Relevant Orders Ambulatory Referral to Otolaryngology SOB (shortness of breath) Restrictive ventilatory defect Bronchospasm Relevant Medications fluticasone-vilanterol (BREO ELLIPTA) 200-25 mcg/dose DsDv albuterol 90 mcg/actuation inhaler Anxiety, generalized Other Visit Diagnoses Cough, persistent - Primary Relevant Medications benzonatate (TESSALON) 200 MG capsule Other Relevant Orders Lung Volumes Carbon monoxide diffusing capacity (DLCO) Flow Volume Loop Fraction Nitric Oxide (FENO) Ambulatory Referral to Otolaryngology Chronic cough. In the setting of normal lung holland on physical examination. Normal pulmonary function testing. Normal fractional excretion of nitric oxide. Normal chest x-ray. Healthy 23-year-old female. No ongoing potential respiratory exposures. Patient's complaints mainly centered on her upper airway. ENT evaluation. Thought possible reflux. No subjective benefit secondary to PPI use. I stillsuspect cough is upper airway in nature. Possibly multifactorial. Possible laryngeal sensory neuropathy. I doubt lower airway etiology however possible. Advised patient to pursue repeat otolaryngology evaluation with speech therapy. Patient agreeable. Discussed with patient pursuing methacholine challenge testing. Reactive airways disease is doubted this patient. Negative methacholine challenge test would strongly support this. Patient recently possibly had a respiratory illness. Resultant postinfectious bronchospasm. Results could be affected bythis. Consensus plan with patient at this time is to treat for postinfectious bronchospasm and/or asthma. Also to give patient some relief now. PLAN: Otolaryngology. Speech therapy evaluation. Upper airway cough syndrome. Neurogenic cough. Laryngealsensory neuropathy. Vocal cord dysfunction. Possibly behavioral induced cough. Trial of Breo. Albuterol MDI as needed. Trial of Tessalon Perles with guaifenesin with dextromethorphan. Hold for sedation. We will avoid narcotic cough syrup. Continue Lexapro. Return in about 4 weeks (around 03/27/2018) for Spirometry. Clinical Notes on My Chart: Progress notes documented by your healthcare team are available on my chart portal. We encourage you to review notes after visits and in preparation for upcoming appointments. This provides the opportunity to review recommendations as well as prepare questions for your healthcare team to address during your next visit. If you have specific questions related to the notes, please bring them to yournext scheduled visit to discuss with your physician, nurse practitioner or physician minister assistant. With increased transparency, our hope is that we can create better communication, more shared decision-making, and increased satisfaction. However, if you have questions regarding the plan of care, thesemay be managed by calling our office or through [facility]. Current Outpatient Prescriptions Medication Sig Dispense Refill ??? escitalopram oxalate (LEXAPRO) 10 MG tablet Take 1/2 a tablet for 1 week and then increase to 1a day ??? fexofenadine (MARILY) 180 MG tablet Take by mouth. ??? levonorgestrel-ethinyl estradiol (ORSYTHIA) 0.1-20 mg-mcg tablet ??? omeprazole (PRILOSEC) [address] capsule Take 1 a day ??? albuterol 90 mcg/actuation inhaler Inhale 2 inhalations into the lungs every 4 (four) hours as needed (Cough). 1 Inhaler 3 ??? benzonatate (TESSALON) 200 MG capsule Take 1 capsule (200 mg total) by mouth 3 (three) times daily as needed for Cough for up to 7 days. 90 capsule 0 ??? fluticasone-vilanterol (BREO ELLIPTA) 200-25 mcg/dose DsDv Inhale 1 inhalation into the lungs once daily. 1 each 3 No current facility-administered medications for this visit. Chief Complaint Patient presents with ??? Establish Care ??? Chronic Cough X 7-8 months, started as a dry cough, has been to ENT and been scoped, was told she had acid reflux, has been on prilosec with no relief ??? Cough went to [place] ED recently, nothing has helped the cough, gets worse at night, primarily a dry cough with rare clear mucus production HISTORY OF PRESENT ILLNESS: 23 y.o.female History Smoking Status ??? Never Smoker Smokeless Tobacco ??? 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 [place] increased cough. PPI, Flonase, Anti histamine. Mild improved. ENT thought relflux. Placed on PPI. Recent allergy testing. Inconclusive. Feels like hair in throat . Shortness of Breath Associated symptoms include chest pain. Pertinent negatives include no abdominal pain, claudication, coryza, ear pain, fever, headaches, hemoptysis, leg pain, leg swelling, neck pain, orthopnea, PND,rash, rhinorrhea, sore throat, sputum production, swollen glands, syncope, vomiting or wheezing. There is no history of allergies, aspirin allergies, asthma, bronchiolitis, CAD, chronic lung disease,COPD, DVT, a heart failure, PE, pneumonia or a recent surgery. Cough This is a new problem. The current episode started more than 1 month ago. The problem has been waxing and waning. The problem occurs hourly. The cough is non- productive. Associated symptoms include chest pain. Pertinent negatives include no chills, ear congestion, ear pain, fever, headaches, heartburn, hemoptysis, myalgias, nasal congestion, postnasal drip, rash, rhinorrhea, sore throat, shortness of breath, sweats, weight loss or wheezing. There is no history of asthma, bronchiectasis, bronchitis, COPD, emphysema, environmental allergies or pneumonia. Chest Pain This is a new problem. The current episode started in the past 7 days. The problem occurs daily. The problem has been waxing and waning. The pain is present in the lateral region. The pain is moderate. The quality of the pain is described as sharp. The pain does not radiate. Associated symptoms include a cough. Pertinent negatives include no abdominal pain, back pain, claudication, diaphoresis, dizziness, exertional chest pressure, fever, headaches, hemoptysis, irregular heartbeat, leg pain, lower extremity edema, malaise/fatigue, nausea, near-syncope, numbness, orthopnea, palpitations, PND, shortness of breath, sputum production, syncope, vomiting or weakness. The pain is aggravated by coug yu. Pertinent negatives for past medical history include no aneurysm, no anxiety/panic attacks, no aortic aneurysm, no aortic dissection, no CAD, no DVT, no Marfan's syndrome, no [place], no mitral valve prolapse, no pacemaker and no PE. 02/25/2018 [facility] left-sided chest pain. Worse when she breathes in her cough. Woke up fromsleep in the a.m. To throw up. Syncopal event Motrin made to the bathroom. Woke up diaphoretic. Hasbeen experiencing intermittent nausea since the episode. Persistent cough past 7 months. This had worked up for multiple times is been told has a virus. On control. Leukocytosis. No obvious diagnosis found. Patient discharge. 01/21/2018. Primary care visit. Mother suspects cough related to anxiety. Does not occur when she is sleep or she is focused on something else. Saw ENT and I saw some GERD apparently. Advised PPI. Nausea on Prilosec 40 mg. Did not take it. URI in the interim. 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 She tried Flonase and Marily and a course of Omnicef. Eventually a steroid taper but symptoms did not resolve. Recommended trial of omeprazole 20 mg p.o. daily. Anxiety. Started Lexapro.Review D&C consult note with patient. Increase water intake. Continue Flonase. ENT follow-up. Review of Systems Constitutional: Negative. Negative for chills, diaphoresis, fever, malaise/fatigue and weight loss. HENT: Negative. Negative for ear pain, postnasal drip, rhinorrhea and sore throat. Eyes: Negative. Respiratory: Positive for cough. Negative for hemoptysis, sputum production, shortness of breath and wheezing. Cardiovascular: Positive for chest pain. Negative for palpitations, orthopnea, claudication, leg swelling, syncope, PND and near-syncope. Gastrointestinal: Negative. Negative for abdominal pain, blood in stool, constipation, diarrhea, heartburn, melena, nausea and vomiting. Genitourinary: Negative. Musculoskeletal: Negative. Negative for back pain, myalgias and neck pain. Skin: Negative. Negative for rash. Neurological: Negative. Negative for dizziness, weakness, numbness and headaches. Endo/Heme/Allergies: Negative. Negative for environmental allergies and polydipsia. Does not bruise/bleed easily. Psychiatric/Behavioral: Negative. All other systems reviewed and are negative. PHYSICAL EXAM: BP 118/78 (BP Location: Left upper arm, Patient Position: Sitting, BP Cuff Size: Adult) Pulse 95 Resp 16 Ht 170.2 cm (5' 7 ) Wt 60.9 kg (134 lb 4.8 oz) SpO2 99% BMI 21.03 kg/m?? Gamaliel body weight: 61.6 kg (135 lb 12.9 oz) Physical Exam Constitutional: She is oriented to person, place, and time. She appears well- developed and well-nourished. No distress. HENT: Head: Normocephalic and atraumatic. Right Ear: External ear normal. Left Ear: External ear normal. Nose: Nose normal. Mouth/Throat: Oropharynx is clear and moist. No oropharyngeal exudate. Eyes: Conjunctivae and EOM are normal. Right eye exhibits no discharge. Left eye exhibits no discharge. No scleral icterus. Neck: Normal range of motion. Neck supple. No tracheal deviation present. Cardiovascular: Normal rate, regular rhythm and normal heart sounds. Exam reveals no gallop and no friction rub. No murmur heard. Pulmonary/Chest: Effort normal and breath sounds normal. No accessory muscle usage or stridor. No apnea, no tachypnea and no bradypnea. No respiratory distress. She has no wheezes. She has no rales. She exhibits no tenderness. Abdominal: Soft. Bowel sounds are normal. She exhibits no distension. There is no tenderness. Musculoskeletal: Normal range of motion. She exhibits no edema or tenderness. Neurological: She is alert and oriented to person, place, and time. Skin: Skin is warm and dry. No rash noted. She is not diaphoretic. No erythema. No pallor. Psychiatric: She has a normal mood and affect. Her speech is normal and behavior is normal. Nursing note and vitals reviewed. DATA: Pulmonary Function Test (PFT) Latest Ref Rng & Units 02/27/2018 FVC PRE L 3.29 FVC % PRE PRED % 79 FEV1 PRE L 2.9 FEV1 % PRE PRED % 81 FEV1/FVC PRE % 88.15 TLC PRE L 4.56 TLC % PRE PRED % 79 RV PRE L 1.27 RV % PRE PRED % 73 DLCO PRE ml/(min*mmHg) 21.05 DLCO % PRE PRED % 86 HGT87-12% PRE L/s 3.22 JTB36-54% % PRE PRED % 83 02/27/2018 good efforts demonstrated throughout testing. Spunky data septal reversible. Incomplete IVC and the DLCO maneuver may cause underestimation of true lung function. No bronchodilator of study. 02/27/2018 Fractional Excretion of Nitric Oxide FENO 13 ppb FENO <25 ppb implies noneosinophilic airway inflammation or the absence of airway inflammation. Suggests that inhaled glucocorticoid treatment may not be necessary and is unlikely to be beneficial. Can help identify poor adherence in asthma patients with otherwise seemingly ???controlled?? asthma. 02/25/2018 Chest x-ray PA and lateral Comparison none Negative 11/29/2017 X-ray PA lateral Negative 02/25/2018 EKG twelve-lead Normal ECG. No prior ECGs available. Normal sinus rhythm. 02/25/2018 HCG urine negative Pro BNP 17.0 Troponin less than 0.015 WBC 19.6. Otherwise normal CBC 88.8% neutrophils. Normal differential. Except for elevated absoluteneutrophil count 17.4 Normal CMP D-dimer 0.29 01/06/2018 Strep a DNA probe not detected Monospot negative Urinalysis. 1+ nitrate. 3+ leukocytes. 2+ protein. Blood heme large 12/09/2017 WBC 10.9 AST 47.0 PLT 322 normal CMP normal TSH 07/10/2017 Urinalysis. 4+ nitrate. 4+ leukocytes. He enlarged. Negative protein. History reviewed. No pertinent past medical history. Past Surgical History: Procedure Laterality Date ??? SEPTOPLASTY 2010 Allergies Allergen Reactions ??? Sulfa (Sulfonamide Antibiotics) Rash Social History Social History ??? Marital status: Single Spouse name: N/A ??? Number of children: N/A ??? Years of education: N/A Occupational History ??? Not on file. Social History Main Topics ??? Smoking status: Never Smoker ??? Smokeless tobacco: Never Used ??? Alcohol use Not on file ??? Drug use: Unknown ??? Sexual activity: Not on file Other Topics Concern ??? Not on file Social History Narrative ??? No narrative on file Family History Problem Relation Age of Onset ??? Asthma Maternal Grandmother ??? COPD Maternal Grandmother ??? Lung cancer Maternal Grandfather Patient Care Team: Yvonne Reyes MD as PCP - General (Internal Medicine) [place] [address] documented in this encounter Procedure Notes * Scott Corrales RCP - 02/27/2018 8:30 AM EDT SEE VMAX NOTE * Marco Hyatt LPN - 02/27/2018 8:30 AM EDT Fractional Excretion of Nitric Oxide FENO 13 ppb Adult Interpretation Values < 5 Low (unlikely) 5-25 Normal (unlikely) 25-50 Intermediate (present, but mild) >50 High (significant) Comments: Waiver form signed/completed/to be scanned to chart. This Fraction nitric oxide order signed in accordance with [facility] protocol. documented in this encounter Plan of Treatment Scheduled Orders Name Type Priority Associated Diagnoses Orde r Schedule Lung Volumes PFT Routine Cough, persistent Ordered: 02/27/2018 Carbon monoxide diffusing capacity (DLCO) PFT Routine Cough, persistent Ordered: 02/27/2018 Flow Volume Loop PFT Routine Cough, persistent Ordered: 02/27/2018 Scheduled Referrals Name Type Priority Associated Diagnoses Order Schedule Ambulatory Referral to Otolaryngology Outpatient Referral Routine Cough, persistent Tickle in throat Throat clearing Throat tightness Ordered: 02/27/2018 documented as of this encounter Procedures Procedure Name Priority Date/Time Associated Diagnosis Comments PULMONARY FUNCTION TEST 02/27/2018 8:21 AM EDT PULMONARY FUNCTION TEST Routine 02/27/2018 8:21 AM EDT documented in this encounter Results * PULMONARY FUNCTION TEST (02/27/2018 8:21 AM EDT) Narrative 02/27/2018 8:21 AM EDT Ordered by an unspecified provider. us On-File Provider PFT ORDERABLES Final Result * Pulmonary Function Test (02/27/2018 8:21 AM EDT) FEV1 Pre 2.9 L [facility] PULMON[facility] FEV1/FVC Pre 88.15 % [facility] ION [facility] PULMONARY FVC Pre 3.29 L [facility] PUL[facility] PEF Pre 7.16 L/s [facility] PULMON[facility] FEF50% Pre 3.98 L/s [facility] N PFT[facility] PULMONARY WPS98-05% Pre 3.22 L/s [facility] KAIDEN PFT[facility] PULMON[facility] QUZ028% Pre 6.66 sec [facility] ON [facility] PULMON[facility] DLCO Pre 21.05 ml/(min*mm Hg) [facility] BHT Pre 10.72 sec [facility] DLCO/VA Pre 5.77 ml/(min*mm Hg*L) [facility] PULMON[facility] VA Pre 3.65 L [facility] IVC Pre 2.7 L [facility] DL Adj Pre 21.05 ml/(min*mm Hg) [facility]UL[facility] DL/VA Adj Pre 5.77 ml/(min*mm Hg*L) [facility] PUL[facility] ERV Pre 1.06 L [facility]UL[facility] FRC N2 Pre 2.34 L [facility] N PFT[facility] PULMON[facility] RV/TLC Pre 27.87 % [facility] N PFT[facility] PULMONARY RV Pre 1.27 L [facility] PULMONARY TLC Pre 4.56 L [facility] PUL[facility] VC Pre 3.29 L [facility] PULMON[facility] FVC Pred 4.15 [facility] PULMONARY FVC %Pre Pred 79 % [facility] KAIDEN PFTIS6 [facility] PULMONARY FEV1 Pred 3.58 [facility] PULMON[facility] FEV1 %Pre Pred 81 % [facility] US[facility] PFT[facility] PULMONARY FEV1/FVC Pred 86 [facility] KAIDEN PFT[facility]6 [facility] PULMONARY FEV1/FVC %Pre Pred 102 % [facility] PULMON[facility] QEM63-20% Pred 3.87 [facility] PFT[facility] PULMONARY KHE35-73% %Pre Pred 83 % [facility] PULMONARY FEF50% Pred 4.49 [facility] ON PFT[facility]6 [facility] PULMONARY FEF50% %Pre Pred 89 % [facility] PULMONARY PEF Pred 7.33 [facility] PULMONARY PEF %Pre Pred 98 % [facility] KAIDEN PFTIS6 [facility] PULMONARY MVV Pred 121 [facility] PFT[facility] PULMONARY TLC Pred 5.8 [facility] PULMONARY TLC %Pre Pred 79 % [facility] KAIDEN PFT[facility]6 [facility] PULMONARY VC Pred 4.33 [facility] PFT[facility] PULMONARY VC %Pre Pred 76 % [facility] ION PFTIS6 [facility] PULMONARY RV Pred 1.75 [facility] PFT[facility] PULMONARY RV %Pre Pred 73 % [facility] ION PFTIS6 [facility] PULMONARY RV/TLC Pred 28 [facility]USI ON PFTIS6 [facility] PULMONARY RV/TLC %Pre Pred 101 % [facility] PFT[facility]6 [facility] PULMONARY ERV Pred 1.41 [facility] PFT[facility] PULMONARY ERV %Pre Pred 75 % [facility] KAIDEN PFTIS6 [facility] PULMONARY DLCO Pred 24.34 [facility] PFT[facility] PULMONARY DLCO %Pre Pred 86 % [facility]F USION PFTIS6 [facility] PULMONARY DLCO/VA Pred 4.8 [facility]US ION PFTIS6 [facility] PULMONARY DLCO/VA %Pre Pred 120 % [facility] PFT[facility] PULMONARY 02/27/2018 8:21 AM EDT us On File Provider PFT ORDERABLES Final Result [facility] documented in this encounter Visit Diagnoses Diagnosis Cough, persistent- Primary Restrictive ventilatory defect SOB (shortness of breath) Shortness of breath Anxiety, generalized Tickle in throat Throat clearing Other symptoms involving head and neck Throat tightness Bronchospasm Acute bronchospasm documented in this encounter Care Teams Staff Nuclear Weapons Officer Relationship Specialty Start Date End Date Yvonne Reyes MD PCP - General Internal Medicine 02/21/18 documented as of this encounter
--- OUTSIDE RECORDS SUMMARY | 2024-06-18 11:50 | XMS_ITS | Encounter Summary ---
Author Organization [facility] Address [address] [place] [address] Care Team Providers Care Green Marketer Name Role Phone Yvonne Reyes MD Primary Care Provider Isaiah ayers Reason for Visit * Reason Comments Cough lasted a year in a h fdc Encounter Details Date Type Department Care Team (Latest Contact Info) Description 10/07/2018 12:45 PM EDT Office Visit [facility] [address] [phone] Gamaliel Jama MD [address] [place] [phone] Chronic cough (Primary Dx); Dysphonia Social History Tobacco Use Types Packs/Day Years [...] - Inhaled Oxygen Concentration - - Weight 60.8 kg (134 lb) 10/07/2018 1:08 PM EDT Height 170.2 cm (5' 7 ) 10/07/2018 1:08 PM EDT Body Mass Index 20.99 10/07/2018 1:08 PM EDT documented in this encounter Progress Notes * Gamaliel Jama MD - 10/07/2018 12:45 PM EDT This is a 23 year old female who comes to see me for follow up of cough. Has had few session of voice therapy which helps. Feels a tickle in her throat and throat tightness. Never smoker. Has tried breo, steroid taper, tessalon, prilosec, omnicef, flonase, larry. Negative CXR. No ACEI. Negative allergy testing. Cough is dry but improved. Trigger - were talking, laughing, not odors, cold, exertion, sometimes swallowing. She started lexapro has helped with anxiety. Drinks 6 water and 1 caffeine. Rates voice 8/10. 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 No LENIN. A full review of systems was obtained [...] masses or nodules noted. Voice: Voice quality less strain, less glottal faith. No stridor noted. Head and Face: No abnormalities noted. Skin is without ulceration. Eyes, Ears, Nose: No abnormalities noted. Oral Cavity: No abnormalities noted. PROCEDURES: Flexible laryngoscopy was performed with scope 6 after the nose was anesthetized with topical Tetracaine and Oxymetazoline to evaluate for vocal fold lesions, closure, swallowing function. Photo documentation was obtained and shown to the patient/family. Pertinent findings include: Nasopharynx: Clear. Hypopharynx: No masses or abnormalities. No signs of reflux or post-cricoid edema. Larynx: Vocal folds are mobile for AB-duction and AD-duction. No mucosal irregularities. Complications: none Condition: Stable. Patient tolerated the procedure well. Impression: ICD-10-CM ICD-9-CM 1. Chronic cough R05 786.2 2. Dysphonia R49.0 784.42 Plan: Her voice and cough are both improved and she feels good. She has gotten in to Vet school andhas a busy end of the year with graduation but I do think further voice therapy can be beneficial given the persistent strain and glotta faith I hear. Call if ear pain, weight loss, worsening voice, swallowing or breathing. Issues concerning treatment and diagnosis were discussed with the patient. There were no barriers to understanding the plan of treatment. Explanation was well received by patient, who then verbalizedunderstanding. I personally performed or jointly provided the services with an auxiliary provider (RN, oil and gas exploration technician,etc.) but there was no involvement of a resident or fellow. GAMALIEL JAMA * Sasha Maxwell RMA - 10/07/2018 12:45 PM EDT Review of Systems Respiratory: Positive for cough. Allergic/Immunologic: Positive for environmental allergies. All other systems reviewed and are negative. documented in this encounter Plan of Treatment Not on file documented as of this encounter Visit Diagnoses Diagnosis Chronic cough- Primary Cough Dysphonia documented in this encounter Care Teams Green Marketer Relationship Specialty Start Date End Date Yvonne Reyes MD PCP - General Internal Medicine 02/21/18 documented as of this encounter
--- OUTSIDE RECORDS SUMMARY | 2024-06-18 11:50 | XMS_ITS | Encounter Summary ---
Author Organization [facility] Address [address] [place] [address] Care Team Providers Care Provisioning Analyst Name Role Phone Yvonne Reyes MD Primary Care Provider Isaiah ayers Reason for Visit * Consultation (Emergency) - Closed Specialty Diagnoses / Procedures Referred By Neetu aparicio Referred To Contact Otolaryngology Diagnoses Vocal fold edema Gamaliel Jama MD [address] [place] [phone] Phone: tel: fax: Referral ID Status Reason Start Date Expiration Date Visits Re quested Visits Authorized [id number] Closed 08/05/2018 08/05/2019 5 5 Encounter Details Date Type Department Care Team (Latest Contact Info) Description 08/05/2018 3:45 PM EST Procedure visit [facility] [facility] [address] [phone] Alicia Dyer CCC-SLP Dysphonia (Primary Dx); Chronic cough; Muscle tension dysphonia; Vocal cord edema Social History Tobacco Use Types Packs/Day Years Used Date Smoking Tobacco: Never Smokeless Tobacco: Never Comments Unknown Sex and Gender Information Value Date Recorded Sex Assigned at Not on file Legal Sex Female 10:50 AM EDT Gender Identity Not on file Sexual Orientation Not on file documented as of this encounter Progress Notes * Alicia Dyer CCC-SLP - 08/05/2018 3:45 PM EST [facility] Division of Head and Neck Surgery & Communication Sciences Department of Surgery [place] [facility] [address] [place] [address] [place] [facility] [address] [place] [address] [place]: [facility] [address] [place] [address] Strobe Room # 1 Scope # 20 VOICE EVALUATION WITH VIDEOLARYNGOSTROBOSCOPY Reason for Referral: Comprehensive voice evaluation with videolaryngostroboscopy (CPT codes 71879, 79278) Medical Diagnosis: Chronic cough, MTD Communication Diagnosis: Dysphonia R49.0 Referring Physician: Gamaliel Jama MD Subjective: The patient was referred to our clinic by outside ENT. Chief reason for visit: Chronic cough for 1 yr; hoarseness Voice Rating (0-10 scale, 0=no voice, 10=WNL): 6/10 Patient???s Goals: Improve vocal quality and stamina. Pain Assessment (0-10 scale, 0 = no pain, 10 = worst pain): None reported. BACKGROUND: No past medical history on file. History of Voice/Cough Problem: This is a 23 y.o. female who goes by the name Jeannine. 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 Applying to [employer]. Vocal Hygiene: Water intake per day by 8 ounce glass: 3-4 Caffeine intake per day: 1-2 Phonotrauma identified: Throat clearing and Volitional coughing Throat lozenges: Mentholated Smoking: None Previous Voice Therapy: None Voice Handicap Indices The Voice Handicap Index (VHI-10) and Singing Voice Handicap Index (SVHI-10) are patient self-assessment tools that rate the perceived impairment a voice disorder or singing voice disorder has on theFunctional, Physical, and Emotional aspects of one's life. Scores can range from 0 (no handicap) to40 (severe handicap). For both the VHI-10 and SVHI-10, a score above 11 should be considered abnormal. VHI-10 (0 = no handicap; 40 = severe handicap): 8 SVHI-10 (0 = no handicap; 40 = severe handicap): n/a Objective: Perceptual Evaluation of Voice/Speech: CAPE-V The Consensus Auditory-Perceptual Evaluation of Voice (CAPE-V) is a standardized approach to evaluate vocal function and voice quality by rating the auditory- perceptual features of voice. The clinician rates multiple vocal features using a 100 mm visual analog scale, which provides the quantitativescore for each feature. The protocol assesses vocal features in different contexts such as sustained vowels, sentences, and conversational speech. A higher number indicates greater severity. Overall Severity: 18/100 Roughness: 8/100 Breathiness: 0/100 Strain: 18/100 Pitch: 18/100 low, pressed Loudness: 0/100 Additional Observations Respiration: Breath holding with phonation and Speaking too long on 1 breath Pitch: Lowered Quality: Pressed Resonance: Pharyngeal tone-focused frequently Articulation: Normal Rate: Normal Visible/Palpable Muscle Tension: needs to be assessed more Videolaryngostroboscopy: Transnasal digital videolaryngostroboscopy was performed to evaluate the vibratory characteristics of the vocal folds, with topical Afrin and Tetracaine solution applied by [facility]. Appearance: Some thick, clear mucus on TVF's Right (R) Vocal Fold Edge: Smooth, slightly full and Normal color Left (L) Vocal Fold Edge: Smooth, slightly full and Normal color Glottic Closure: Complete except for small posterior gap (NL for women) Phase Closure: Closed phase predominated Vertical Level of Approximation: Equal R Amplitude: Moderately reduced L Amplitude: Moderately reduced R Mucosal Wave: Reduced, over length of vocal fold L Mucosal Wave: Reduced, over length of vocal fold Phase Symmetry: Equal Periodicity: Normal R Arytenoid Abduction / Adduction: Normal L Arytenoid Abduction / Adduction: Normal Ventricular Fold Compression: Mild Anterior / Posterior Compression: Moderate Additional Observations: n/a Oral Mechanism Examination: Unremarkable per Gamaliel Jama MD. Diagnostic Therapy: Stimulability testing was completed and the following techniques were successful in improving voice quality: Increased breath flow, Decreased base of tongue tension and Tension reduction through sustained sounds using semi-occluded vocal tract Patient/Family Education: The patient was provided with education about vocal fold function, vocal hygiene and goals of behavioral voice therapy. Today, chronic cough and etiologies/triggers were explained to the patient. Medical and behavioral factors which may exacerbate or cause chronic cough were reviewed, including development of habit cough, and irritable larynx syndrome. Prevention measures, as well as techniques for interruption of cough, were reviewed. Improving vocal hygiene was stressed. The patient practiced interruption of cough exercises. The patient demonstrated understanding of the information provided and appropriate technique with exercises. Written materials provided: Hydration, Vocal hygiene products , Throat clearing , Vocal Pacing, Voice therapy and Information on diagnosis Assessment: ICD-10-CM ICD-9-CM 1. Dysphonia R49.0 784.42 2. 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 Onset of chronic cough was about 1 year ago, associated with flu/strep throat at that time. Pertinent Strobe findings/interpretation: Bilateral mild vocal fold edema with isometric tension toTVF's impacting mucosal wave, and moderate AP compression (which reduced with cues for tongue-protruded /m/). Medical Diagnosis & strobe findings confirmed by: Gamaliel Jama MD Prognosis: Excellent for Resolving cough and improving voice with behavioral voice therapy based onPatient's insight & understanding, Stimulability for improvement during diagnostic therapy and Motivation Recommendations/Plan: Voice therapy is recommended one time per week for approximately 3-5 sessions targeting the following goals: Acoustic and aerodynamic evaluation will be completed at the outset of treatment. Neon Sign Maker Goal: To improve vocal quality, vocal hygiene, voice projection, and prevent vocal fatigue. To eliminate or reduce chronic cough. Short Term Goals: (Criteria is 80% accuracy unless otherwise stated. Where appropriate, goals are established at the sound/syllable/word/phrase level and progress to conversation level speech). The patient will increase hydration for an eventual goal of 6-8 glasses per day and limit caffeine intake (to maximum of 1-2, 8 oz cups/day), as measured by patient report. The patient will eliminate phonotraumatic behaviors such as chronic throat clearing, by substituting non-traumatic methods to clear mucus. The patient will complete vocal function exercises without laryngeal tension (based on Dr. Cosme Watson's protocol, designed to balance laryngeal musculature, breath flow for phonation, and supraglottic placement of the tone). The patient will utilize a forward tone focused/resonant voice to decrease vocal hyperfunction and improve voice quality and vocal projection. The patient will perform laryngeal control and breathing exercises (relaxed throat breathing or pursed lip breathing) without tension. The patient will decrease the frequency and phonotrauma/forcefulness of cough by utilizing cough interruption and laryngeal control techniques. The patient will increase awareness of VCD or cough symptoms, keep a diary to identify other triggers for symptoms, and record effectiveness of laryngeal control strategies. The plan was developed in conjunction with the patient, who was in agreement with the recommendations. Alicia Dyer MM, MS, CCC-CASHIER MANAGER [facility] documented in this encounter Plan of Treatment Not on file documented as of this encounter Visit Diagnoses Diagnosis Dysphonia- Primary Chronic cough Cough Muscle tension dysphonia Other diseases of larynx Vocal cord edema Edema of larynx documented in this encounter Care Teams Provisioning Analyst Relationship Specialty Start Date End Date Yvonne Reyes MD PCP - General Internal Medicine 02/21/18 documented as of this encounter
--- OUTSIDE RECORDS SUMMARY | 2024-06-18 11:51 | XMS_ITS | Encounter Summary ---
Author Organization [facility] Address [address] [place] [address] Care Team Providers Care Field Marketing Team Leader Name Role Phone Geovanna Davis MD Primary Care Provider + [phone] Health, Virtual Behavioral Unavailable + [phone] Reason for Visit * Reason Comments Annual Exam Encounter Details Date Type Department Care Team (Late st Contact Info) Description 04/14/2024 2:00 PM EDT Office Visit [facility] [place] [phone] Geovanna Davis MD [address] [place] [address] [place] [phone] Routine general medical examination at a health care facility (Primary Dx); Other insomnia; Obsessive-compulsive disorder, unspecified type; Current moderate episode of major depressive disorder without prior episode (CMS/HCC); Anxiety; Other fatigue Social History Tobacco Use Types Packs/Day Years Used Date Smoking Tobacco: Never Smokeless Tobacco: Never Alcohol Use Standard Drinks/Week Comments Yes 5 (1 standard drink = 0.6 oz pur e alcohol) PHQ-2 Answer Date Recorded PHQ-2 Total 0 04/14/2024 Comments No Sex and Gender Information Value Date Recorded Sex Assigned at Female 03/26/2022 11:03 AM EDT Legal Sex Female 5:33 PM EST Gender Identity Female 03/26/2022 11:03 AM EDT Sexual Orientation Straight 03/26/2022 11 :03 AM EDT documented as of this encounter Last Filed Vital Signs Vital Sign Reading Time Taken Comments Blood Pressure 127/80 04/14/2024 2:18 PM EDT Pulse 87 04/14/2024 2:18 PM EDT Temperature - - Respiratory Rate 16 04/14/2024 2:18 PM EDT Oxygen Saturation 100% 04/14/2024 2:18 PM EDT Inhaled Oxygen Concentration - - Weight 73.4 kg (161 lb 11.3 oz) 04/14/2024 2:18 PM EDT Height 171.5 cm (5' 7.52 ) 04/14/2024 2:18 PM ED T Body Mass Index 24.94 04/14/2024 2:18 PM EDT documented in this encounter Functional Status * Over the last 2 weeks, how often have you been bothered by any of the following problems? Question Answer Date of Assessment Author Feeling nervous, anxious, or on edge 0 04/14/2024 2:00 PM EDT Geovanna Davis MD Not being able to stop or co ntrol worrying 0 04/14/2024 2:00 PM EDT Geovanna Davis MD Worrying too much about diff erent things 0 04/14/2024 2:00 PM EDT Geovanna Davis MD Trouble relaxing 1 04/14/2024 2:00 PM EDT Geovanna Scherer MD Being so restless that it is hard to sit still 0 04/14/2024 2:00 PM EDT Geovanna Davis MD Becoming easily annoyed or irritable 1 04/14/2024 2:00 PM EDT Geovanna Davis MD Feeling afraid as if somethi ng awful might happen 0 04/14/2024 2:00 PM EDT Geovanna Davis MD PRAVIN-7 Total Score 2 04/14/2024 2:00 PM EDT Geovanna Davis MD documented as of this encounter Progress Notes * Geovanna Davis MD - 04/14/2024 2:44 PM EDTAssociated Problem(s): Anxiety Reviewed hx, sx, questionnaires. Doing great. Patient would like to continue Lexapro as is. She is hesitant to stop this as it has helped her quite a bit. She continues Lyrica HS. Still using the hydroxyzine HS for anxiety and insomnia, 150mg. I advised her to continue to monitor self for over sedation. Reviewed rx- continue Lexapro 20mg, Lyrica HS and buspirone as prescribed, HS hydroxyzine as prescribed. Advised [id number] * Geovanna Davis MD - 04/14/2024 2:00 PM EDT Well Visit Jeannine Keene :1995 DOS: 04/14/2024 Reason for Visit: Jeannine Keene is a 29 y.o. female who presents for a wellness visit. Patient, all persons present agreed to allow use of tool to record and summarize our conversation. 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 She reports that her anxiety is well-managed, but she continues to struggle with sleep. She has reduced her hydroxyzine intake to two doses, which has improved her sleep quality. She also takes buspirone at night and Lexapro. She is considering reducing her Lyrica dosage due to drowsiness but currently maintains it at two doses per day. She expresses concern about the potential long-term effects of these medications on her liver and kidneys. She expresses a desire to undergo blood work due to persistent fatigue. She recently recovered frombronchitis, which lasted for five weeks. She is interested in exploring options to alleviate her daytime fatigue, such as vitamin B12 supplementation. She notes that her fatigue worsened after her ill ness and that she tends to sleep excessively on her days off. She typically sleeps for eight hours at night. She plans to receive the influenza and COVID-19 vaccines. She was previously diagnosed with mycoplasma/pneumonia vs bronchitis at an urgent care center and was treated with doxycycline, an albuterol inhaler, and prednisone. Her condition improved after ten days. She reports no new or different symptoms since her last visit and feels her breathing has returned to normal. She is making efforts to lose weight and has resumed exercising. She had an ultrasound done at her [facility] office and was found to have an ovarian cyst because she had a lot of abdominal pain. It did not rupture, but it seems better. They said it did not seem cancerous. She is not having pain now. FAMILY HISTORY She denies any family history of cancer. Counseling and Referral of Preventative Services: Pneumovax/Prevnar 20: Influenza: Hepatitis B: Hepatitis A: HPV vaccine: Tdap/Td:03/2023 COVID19 vaccine:x2 PHQ-2 Score: 0 PHQ-9 Score: 4; Risk Category: Minimal (0-4) Suicidal ideation: Not at all Reported impairment: Not difficult at all PRAVIN-7 Total: 2 Risk Category: Minimal (0-4) Reported impairment: Not difficult at all Mammogram: n/a Pap smear: Last Pap 2021 at [facility]. IUD Kyleena 2020. Always been normal. She is still following with [facility]. Lipid screen: 03/2023 Diabetes screen: 03/2023 HIV screen:03/2023 MEDICAL HISTORY Patient Active Problem List Diagnosis Routine general medical examination at a health care facility Anxiety Current moderate episode of major depressive disorder without prior episode (CMS/HCC) OCD (obsessive compulsive disorder) Pain of finger of right hand Other insomnia Weight loss, unintentional Past Medical History: Diagnosis Date Anxiety Depression OCD (obsessive compulsive disorder) Peptic ulceration when taking NSAIDS at high doses gastric ulcer diagnosed last year Allergies Allergen Reactions Wellbutrin [Bupropion Hcl] Anxiety shaky Sulfa (Sulfonamide Antibiotics) Past Surgical History: Procedure Laterality Date FRACTURE SURGERY nose broken ~6y ago WISDOM TOOTH EXTRACTION 2019 Family History Problem Relation Age of Onset Hypothyroidism Mother Hypertension Mother Hypertension Father Atrial fibrillation Father Hypertension Sister Depression Sister Fibromyalgia Maternal Grandmother Hyperlipidemia Maternal Grandmother Hypertension Maternal Grandmother Kidney disease Maternal Grandmother COPD Maternal Grandmother Diabetes Maternal Grandmother Social History Tobacco Use Smoking Status Never Smokeless Tobacco Never Social History Substance and Sexual Activity Alcohol Use Yes Alcohol/week: 5.0 standard drinks of alcohol Types: 2 Glasses of wine, 3 Cans of beer per week Social History Substance and Sexual Activity Drug Use Never [employer] MEDICATIONS Current Medications (verified) Current Outpatient Medications Medication Sig Dispense Refill buspirone (BUSPAR) 10 MG tablet Take 1 tablet (10 mg total) by mouth nightly. 90 tablet 1 escitalopram oxalate (LEXAPRO) 20 MG tablet Take 1 tablet (20 mg total) by mouth daily. 90 tablet 1 hydrOXYzine (ATARAX) 50 MG tablet Take 3 tablets (150 mg total) by mouth nightly as needed. 270 tablet 1 levonorgestrel (KYLEENA) 17.5 mcg/24 hr (5 years) IUD 1 Intra Uterine Device by Intrauterine route once. pregabalin (LYRICA) 25 MG capsule Take 2 capsules (50 mg total) by mouth daily at 3:00pm. 180 capsule 1 No current facility-administered medications for this visit. ASSESSMENT OF RISK FACTORS General Health How is your health?: Good Do you or your family have concerns about your hearing?: No Do you have problems with vision: no Wear contacts or glasses: no Last eye exam: (!) greater than 1 year See dentist every 6 months: yes [place] and floss daily: yes Current diet: well balanced How often do you exercise?: 3-5 days/week Health Risks Do you drink >7 alcoholic drinks/wk or >3 alcoholic drinks/occasion?: No Cardiovascular risk factors: None Do you wear a seatbelt?: Yes Use sunscreen SPF30 or more: (!) no Do you have MORE THAN ONE sexual partner?: No Depression Screening PHQ Depression Little interest or pleasure in doing things: Not at all Feeling down, depressed, or hopeless: Not at all PHQ-2 Total: 0 Trouble falling or staying asleep, or sleeping too much: More than half the days Feeling tired or having little energy: More than half the days Poor appetite or overeating: Not at all Feeling bad about yourself - or that you are a failure or have let yourself or your family down: Not at all Trouble concentrating on things, such as reading the newspaper or watching television: Not at all Moving or speaking so slowly that other people could have noticed. Or the opposite - being so fidgety or restless that you have been moving around a lot more than usual: Not at all Thoughts that you would be better off , or of hurting yourself in some way: Not at all PHQ-9 Total Score: 4 If you checked off any problems, how difficult have these problems made it for you to do your work,take care of things at home, or get along with other people?: Not difficult at all Cancer Screening No data recorded HEALTH MAINTENANCE Health Maintenance Topic Date Due Hepatitis C antibody Never done Influenza vaccines (1) 03/01/2024 COVID-19 Vaccine (2023- season) 2024 Wellness Visit 04/14/2025 PAP SMEAR 09/16/2026 HPV TEST 09/16/2028 DTaP/Tdap/Td vaccines (9 - Td or Tdap) 04/09/2033 HIV Completed Hib vaccines Completed Hepatitis B vaccines Completed Polio vaccines Completed Hepatitis A vaccines Completed HPV vaccines Completed Meningococcal ACWY vaccines Aged Out Pneumococcal vaccines 0-64 yrs Aged Out ROS Review of Systems All other systems reviewed and are negative. PHYSICAL EXAM BP 127/80 (BP Location: Right upper arm, BP Position: Sitting, Cuff Size: Adult ([place] Blue)) Pulse 87 Resp 16 Ht 1.715 m (5' 7.52 ) Wt 73.4 kg (161 lb 11.3 oz) SpO2 100% BMI 24.94 kg/m?? Physical Exam Constitutional: Appearance: She is well-developed. HENT: Head: Normocephalic and atraumatic. Right Ear: External ear normal. Left Ear: External ear normal. Eyes: Conjunctiva/sclera: Conjunctivae normal. Pupils: Pupils are equal, round, and reactive to light. Neck: Thyroid: No thyromegaly. Cardiovascular: Rate and Rhythm: Normal rate and regular rhythm. Heart sounds: Normal heart sounds. No murmur heard. Pulmonary: Effort: Pulmonary effort is normal. Breath sounds: Normal breath sounds. Chest: Chest wall: No tenderness. Abdominal: General: Bowel sounds are normal. There is no distension. Palpations: Abdomen is soft. There is no mass. Tenderness: There is no abdominal tenderness. Musculoskeletal: General: No deformity. Normal range of motion. Cervical back: Normal range of motion and neck supple. Lymphadenopathy: Cervical: No cervical adenopathy. Skin: General: Skin is warm and dry. Findings: No rash. Neurological: Mental Status: She is alert and oriented to person, place, and time. Cranial Nerves: No cranial nerve deficit. Motor: No abnormal muscle tone. Coordination: Coordination normal. Deep Tendon Reflexes: Reflexes are normal and symmetric. Reflexes normal. Psychiatric: Behavior: Behavior normal. Thought Content: Thought content normal. Judgment: Judgment normal. Results CURRENT HEALTHCARE PROVIDERS Patient Care Team: Geovanna Davis MD as PCP - General (Internal Medicine) Virtual Behavioral Health as Denture Technician (Behavioral Health) ASSESSMENT 1. Routine general medical examination at a health care facility 2. Other insomnia 3. Obsessive-compulsive disorder, unspecified type 4. Current moderate episode of major depressive disorder without prior episode (CMS/HCC) 5. Anxiety 6. Other fatigue Anxiety Reviewed hx, sx, questionnaires. Doing great. Patient would like to continue Lexapro as is. She is hesitant to stop this as it has helped her quite a bit. She continues Lyrica HS. Still using the hydroxyzine HS for anxiety and insomnia, 150mg. I advised her to continue to monitor self for over sedation. Reviewed rx- continue Lexapro 20mg, Lyrica HS and buspirone as prescribed, HS hydroxyzine as prescribed. Advised [id number] OV PLAN Assessment & Plan 1. Anxiety. She reports that her anxiety is well-controlled with her current medication regimen. She is currently taking hydroxyzine, buspirone, and Lexapro. She has been able to reduce her hydroxyzine intake totwo tablets nightly and will continue this regimen. A prescription for hydroxyzine 3 tablets nightly will be provided for the next refill. She continues to take buspirone and Lexapro at night. She isadvised to maintain her current regimen and monitor for any changes in symptoms. 2. Insomnia. She reports difficulty sleeping but notes improvement with hydroxyzine. She is currently taking twohydroxyzine tablets nightly, which helps her sleep through the night. She will continue with this regimen and adjust as needed. If symptoms persist, further evaluation may be necessary. 3. Fatigue. She reports persistent fatigue, which worsened after a recent bout of bronchitis. Blood work has been ordered to check for potential causes, including B12 levels. She is advised to rest and monitor her symptoms. If fatigue persists despite normal blood work, further evaluation will be considered. 4. Recent Bronchitis. She recently recovered from a 5-week episode of bronchitis, treated with doxycycline, albuterol inhaler, and prednisone. She reports significant improvement and no current respiratory symptoms. No further treatment is necessary at this time. 5. Ovarian Cyst. She was previously diagnosed with an ovarian cyst, which has resolved without rupture. She reports no current abdominal pain. No further treatment is necessary at this time. 6. Health Maintenance. Her oxygen saturation and blood pressure readings are within normal limits. Her weight remains stable, and her BMI is within the acceptable range. Blood work has been ordered. She plans to receive the flu and COVID-19 vaccines soon. All her medications have been refilled for a 90-day supply at [facility]. Orders Placed This Encounter Procedures CBC with Differential CMP Lipid Panel TSH with reflex to Free T4 Vitamin D 25-Hydroxy - In House Vitamin B12 Ferritin HIV Antigen/Antibody with Reflex to Confirmation Medications Ordered This Encounter Medications escitalopram oxalate (LEXAPRO) 20 MG tablet Sig: Take 1 tablet (20 mg total) by mouth daily. Dispense: 90 tablet Refill: 1 pregabalin (LYRICA) 25 MG capsule Sig: Take 2 capsules (50 mg total) by mouth daily at 3:00pm. Dispense: 180 capsule Refill: 1 hydrOXYzine (ATARAX) 50 MG tablet Sig: Take 3 tablets (150 mg total) by mouth nightly as needed. Dispense: 270 tablet Refill: 1 buspirone (BUSPAR) 10 MG tablet Sig: Take 1 tablet (10 mg total) by mouth nightly. Dispense: 90 tablet Refill: 1 Return in about 6 months (around 10/13/2024) for Depression/anxiety follow up PRAVIN-7, PHQ-9. Text in this note was generated using an [employer] documentation service. I discussed the potential to use a recording device to record and summarize our discussion today. All persons present during the encounter consented to its use. HEALTH RISK documented in this encounter Plan of Treatment Not on file documented as of this encounter Goals Goal Patient Goal Type Associated Problems Recent Progress Patient-Stated? Author Depression/Self-C are Care Management On track(2020 3:24 PM EDT) Selvin Melo, [facility] Note: I will increase my knowledge and skill around increasing my use of effective strategies to feel better when I am feeling sad, down, or alone in my thoughts, by creating and using a self-care routine to help improve my overall mood, as evidenced by: ?? Identify 2-3 self care activities I can do daily when I get home from work/school (20 min walks, read a book, exercise from home, quality time with my pet, meal prep) ?? When Im off from work I will plan activities ahead of time that I can enjoy in order to decrease symptoms of depression, such as, hiking, gardening, or other hobbies ?? Call my support system to talk or plan something fun within the safety guidelines of Covid-19 ?? Practice deep breathing and other mindfulness strategies when feeling overwhelmed ?? Learn to identify maladaptive, negative thoughts and how to replace them with more positive and realistic thoughts ?? Celebrate little successes each day using positive self talk and positive self-affirmations . Utilize Smart phone applications for meditation, such as, The Calm nannette Anxiety Care Management On track(2020 3:24 PM EDT) Selvin Melo, [facility] Note: I will increase my knowledge and skill around developing and using strategies to reduce symptoms of anxiety and stress, to feel better when I am feeling worried, irritated, or anxious, and to improve coping skills, as evidenced by: I will: -Practice taking deep breaths, using mindfulness exercises, using coping apps, and engaging in physical activity 4-5 day per week -Recognize and plan for top anxiety-provoking situations, including stressors related to my job, family, and personal life -Report feeling more positive about myself and my abilities, while refraining from engaging in self-doubt thoughts -Develop strategies for thought distraction when fixating on the future, the past, or what others may think about me -Identify a self-care plan to manage work-related stress and concerns -Get 7-8 hours of restful sleep every night -Eat 3 well-balanced meals daily, including 1-2 snacks documented as of this encounter Results * HIV Antigen/Antibody with Reflex to Confirmation: (04/14/2024 3:03 PM EDT) HIV Result NONREACTIVE Non-Reac tive [facility] Comment:HIV testing performe d by Ag/Ab combo chemiluminescent screening method. 04/14/2024 3:03 PM EDT 04/14/2024 9:12 PM EDT Geovanna Davis MD LAB BLOOD ORDERABLES Final R esult [facility] [address] [place] [address] * Ferritin (04/14/2024 3:03 PM EDT) Ferritin 44.5 11.0 - 307.0 ng/mL [facility] 04/14/2024 3:03 PM EDT 04/14/2024 9:12 PM EDT us Geovanna Davis MD LAB BLOOD ORDERABLES Final R esult Performing Organization Address [facility] Co de Phone Number [facility] [address] [place] [address] * Vitamin B12 (04/14/2024 3:03 PM EDT) Vitamin B12 294 180 - 914 pg/ml [facility] 04/14/2024 3:03 PM EDT 04/14/2024 9:12 PM EDT Geovanna Davis MD LAB BLOOD ORDERABLES Final R esult Performing Organization Address [facility] de Phone Number [facility] [address] [place] [address] * Vitamin D 25-Hydroxy - In House (04/14/2024 3:03 PM EDT) Vitamin D 25-Hydroxy 32 30 - 100 ng/mL [facility] Comment: In 2011, the Clinical Guidelines Subcommittee of the Endocrine Society Task Force established the recommended serum 25(OH)vitamin D levels of <20ng/mL as deficient and 20 to ??<30ng/mL as insufficient. Other clinical reference citations may show different values. 04/14/2024 3:03 PM EDT 04/14/2024 9:12 PM EDT Geovanna Davis MD LAB BLOOD ORDERABLES Final R esult Performing Organization Address City/[facility]/ZIP Co de Phone Number [facility] [address] [place] [address] * TSH with reflex to Free T4 (04/14/2024 3:03 PM EDT) TSH 1.40 0.45 - 5.33 uIU/mL [facility] Comment: Reference Ranges for Females: 1st Trimester ? 0.05-3.70 uIU/mL 2nd Trimester ? 0.31-4.35 uIU/mL 3rd Trimester ? 0.41-5.18 uIU/mL 04/14/2024 3:03 PM EDT 04/14/2024 9:12 PM EDT us Goevanna Davis MD LAB BLOOD ORDERABLES Final R esult [facility] [address] [facility] [place] [address] * (ABNORMAL) Lipid Panel (04/14/2024 3:03 PM EDT) Cholesterol 215(H) 0 - 199 mg/dL [facility] Comment: Child ages 2-17 years: Acceptable: <170 mg/dL Borderline High: 170-199 mg/dL High: > or =200 mg/dL Adult ages >18 years: Desirable: <200 mg/dL Borderline High: 200-239 mg/dL High: >or =240mg/dL Triglycerides 158(H) 0 - 149 mg/dL [facility] Comment: Child ages 2-9 years: Acceptable: <75 mg/dL Borderline high: 75-99 mg/dL High: > or =100 mg/dL 10-17 years: Acceptable: <90 mg/dL Borderline High: 90-129 mg/dL High: > or =130 mg/dL Adult ages >18 years: Normal: <150 mg/dL Borderline High: 150-199 mg/dL High: 200-499 mg/dL Very High: > or =500 mg/dL HDL 48(L) mg/dL [facility] Comment: Child ages 2-17 years: Low HDL: <40 mg/dL Borderline Low: 40-45 mg/dL Acceptable: >45 mg/dL Adult ages >18 years: Males: > or =40 mg/dL Females: > or =50 mg/dL LDL, Calculation 135(H) 0 - 100 mg/dL [facility] Cholesterol/HDL Ratio 4.5 0.0 - 5.0 [facility] 04/14/2024 3:03 PM EDT 04/14/2024 9:12 PM EDT us Geovanna Davis MD LAB BLOOD ORDERABLES Final R esult [facility] [address] [place] [address] * CMP (04/14/2024 3:03 PM EDT) Sodium 139 136 - 145 mmol/L [facility] Potassium 4.3 3.5 - 5.1 mmol/L [facility] Chloride 101 98 - 107 mmol/L [facility] CO2 29 21 - 31 mmol/L [facility] BUN 11 7 - 25 mg/dL [facility] Creatinine 0.76 0.60 - 1.20 mg/dL [facility] Glucose, Random 87 70 - 199 mg/dL [facility] Calcium, Total 9.7 8.6 - 10.3 mg/dL [facility] Osmolality (calculated) 276 270 - 295 mOsm/kg [facility] Anion Gap 9 4 - 12 [facility] Albumin 4.3 3.5 - 5.7 g/dL [facility] Bilirubin, Total 0.4 0.3 - 1.0 mg/dL [facility] Alkaline Phosphatase 71 34 - 104 IU/L [facility] ALT 15 7 - 52 IU/L [facility] AST 16 13 - 39 IU/L [facility] Protein, Total 6.9 6.4 - 8.9 g/dL [facility] Albumin/Globulin Ratio 1.7 1.2 - 2.3 [facility] 04/14/2024 3:03 PM EDT 04/14/2024 9:12 PM EDT us Geovanna Davis MD LAB BLOOD ORDERABLES Final R esult [facility] [address] [place] [address] * (ABNORMAL) CBC with Differential (04/14/2024 3:03 PM EDT) Differential Percent Diff % [facility] Differential Absolute Diff Absolute [facility] WBC 10.9 3.6 - 11.2 K/uL [facility] RBC 5.29(H) 3.63 - 4.92 M/uL [facility] Hemoglobin 14.6(H) 10.9 - 14.3 g/dL [facility] Hematocrit 44(H) 31 - 42 % [facility] Mean Cell Volume 82 74 - 96 fL [facility] Mean Cell Hemoglobin 28 24 - 33 pg [facility] Mean Cell Hemoglobin Concentration 33 33 - 36 g/dL [facility] RDW 13.2 12.3 - 17.0 % [facility] Platelet Count 365 150 - 450 K/uL [facility] Mean Platelet Volume 8.8 7.5 - 11.2 fL [facility] Neutrophils 52 43 - 77 % [facility] Lymphocytes 36 16 - 44 % [facility] Monocytes 9 5 - 13 % [facility] Eosinophils 2 1 - 8 % [facility] Basophils 1 0 - 1 % [facility] Neutrophils Absolute 5.7 1.8 - 7.8 K/uL [facility] Lymphocytes Absolute 3.9(H) 1.0 - 3.0 K/uL [facility] Monocytes Absolute 0.9 0.3 - 1.0 K/uL [facility] Eosinophils Absolute 0.3 0.0 - 0.5 K/uL [facility] Basophils Absolute 0.1 0.0 - 0.1 K/uL [facility] Nucleated RBCS 0 /100 [facility] 04/14/2024 3:03 PM EDT 04/14/2024 9:12 PM EDT us Geovanna Davis MD LAB BLOOD ORDERABLES Final R esult [facility] [address] [place] [address] documented in this encounter Visit Diagnoses Diagnosis Routine general medical examination at a health care facility- Primary Other insomnia Obsessive-compulsive disorder, unspecified type Current moderate episode of major depressive disorder without prior episode (CMS/HCC) Anxiety Anxiety state, unspecified Other fatigue documented in this encounter Additional Health Concerns Assessment Noted Time PHQ-9 Depression Total Score: 4 04/14/20 24 2:00 PM EDT documented as of this encounter Care Teams Field Marketing Team Leader Relationship Specialty Start Date End Date Geovanna Davis MD [address] [place] [id number] PCP - General Internal Medicine 08/16/20 Health, Virtual Behavioral [address] [facility], [address] [place] [address] Denture TechnicianVascular Physician Health 08/31/20 documented as of this encounter
--- OUTSIDE RECORDS SUMMARY | 2024-06-18 11:51 | XMS_ITS | Encounter Summary ---
Author Organization [facility] Address [address] [place] [address] Care Team Providers Care Clinical Nursing Coordinator Name Role Phone Geovanna Davis MD Primary Care Provider + [phone] Encounter Details Date Type Department Care Team (Late st Contact Info) Description 08/25/2020 Telephone [facility] 23 [facility] [address] [place] [address] Mark Kumar Social History Tobacco Use Types Packs/Day Years Used Date Smoking Tobacco: Never Smokeless Tobacco: Never Alcohol Use Standard Drinks/Week Comments Yes 2 (1 standard drink = 0.6 oz pur e alcohol) PHQ-2 Answer Date Recorded PHQ-2 Score 6 08/25/2020 Comments No Sex and Gender Information Value Date Recorded Sex Assigned at Female 03/26/2022 11:03 AM EDT Legal Sex Female 5:33 PM EST Gender Identity Female 03/26/2022 11:03 AM EDT Sexual Orientation Straight 03/26/2022 11 :03 AM EDT documented as of this encounter Miscellaneous Notes * Telephone Encounter - Mark Kumar - 08/25/2020 4:35 PM EST [facility] attempted to contact patient (1 out 3) to schedule follow up session, safety check and/ or obtain update from the patient if he/she would like to discontinue services. Clinician received voicemail and left message requesting call back. [facility] can continue telephonic outreach attempts and/or sent aMyChart message. documented in this encounter Plan of Treatment Not on file documented as of this encounter Visit Diagnoses Not on filedocumented in this encounter Additional Health Concerns Assessment Noted Time PHQ-9 Depression Total Score: 20 021 3:00 PM EST documented as of this encounter Care Teams Clinical Nursing Coordinator Relationship Specialty Start Date End Date Geovanna Davis MD [address] [phone] PCP - General Internal Medicine 08/16/20 documented as of this encounter
--- OUTSIDE RECORDS SUMMARY | 2024-06-18 11:51 | XMS_ITS | Encounter Summary ---
Author Organization [facility] Address [address] [place] [address] Care Team Providers Care Manager Bakery Name Role Phone Geovanna Davis MD Primary Care Provider + [phone] Health, [facility] Unavailable + [phone] Encounter Details Date Type Department Care Team (Late st Contact Info) Description 04/11/2023 Orders Only [facility]-[address] [place] [phone] Geovanna Davis MD [address] [facility] [address] [place] [phone] Anxiety (Primary Dx) Social History Tobacco Use Types Packs/Day Years Used Date Smoking Tobacco: Never Smokeless Tobacco: Never Alcohol Use Standard Drinks/Week Comments Yes 5 (1 standard drink = 0.6 oz pur e alcohol) PHQ-2 Answer Date Recorded PHQ-2 Total 0 04/09/2023 Comments No Sex and Gender Information Value [...] Care Management On track(2020 3:24 PM EDT) No Selvin Gray [facility] Note: I will increase my knowledge and [...] On track(2020 3:24 PM EDT) Selvin Melo, [facility] Note: I will increase my knowledge and [...] 1-2 snacks documented as of this encounter Visit Diagnoses Diagnosis Anxiety- Primary Anxiety state, unspecified documented in this encounter Additional Health Concerns Assessment Noted Time PHQ-9 Depression Total Score: 2 04/09/20 10:00 AM EDT documented as of this encounter Care Teams Manager Bakery Relationship Specialty Start Date End Date Geovanna Davis MD [address] [facility] [address] [place] [phone] PCP - General Internal Medicine 08/16/20 Health, Virtual Behavioral 23 [facility], [address] [place] [address] Server AssistantElevator Operator Service Health 08/31/20 documented as of this encounter
--- OUTSIDE RECORDS SUMMARY | 2024-06-18 11:51 | XMS_ITS | Encounter Summary ---
Author Organization [facility] Address [address] [place] [address] Care Team Providers Care Conveyor Operator Name Role Phone Geovanna Davis MD Primary Care Provider + [phone] Health, [facility] + [phone] Reason for Visit * Reason Onset Date Comments Rx clarification 12/26/2021 Encounter Details Date Type Department Care Team (Late st Contact Info) Description 12/26/2021 Telephone [facility] [place] [address] Janet Haney MA Rx clarification Social History Tobacco Use Types Packs/Day Years Used Date Smoking Tobacco: Never Smokeless Tobacco: Never Alcohol Use Standard Drinks/Week Comments Yes 2 (1 standard drink = 0.6 oz pur e alcohol) PHQ-2 Answer Date Recorded PHQ-2 Total 0 12/26/2021 Comments No Sex and Gender Information Value Date Recorded Sex Assigned at Female 03/26/2022 11:03 AM EDT Legal Sex Female 5:33 PM EST Gender Identity Female 03/26/2022 11:03 AM EDT Sexual Orientation Straight 03/26/2022 11 :03 AM EDT documented as of this encounter Functional Status * Over the last 2 weeks, how often have you been bothered by any of the following problems? Question Answer Date of Assessment Author PRAVIN-7 Total Score 3 12/26/2021 11:33 AM EDT Background, Mychart * Feeling nervous, anxious, or on edge Answer Date of Assessment Author 1 12/26/2021 11:33 AM EDT Backgrou nd, [place] * Not being able to stop or control worrying Answer Date of Assessment Author 0 12/26/2021 11:33 AM EDT Backgrou nd, Mychart * Worrying too much about different things Answer Date of Assessment Author 0 12/26/2021 11:33 AM EDT Backgrou nd, Mychart * Trouble relaxing Answer Date of Assessment Author 1 12/26/2021 11:33 AM EDT Backgrou nd, Mychart * Being so restless that it is hard to sit still Answer Date of Assessment Author 0 12/26/2021 11:33 AM EDT Backgrou nd, Mychart * Becoming easily annoyed or irritable Answer Date of Assessment Author 1 12/26/2021 11:33 AM EDT Backgrou nd, Mychart * Feeling afraid as if something awful might happen Answer Date of Assessment Author 0 12/26/2021 11:33 AM EDT Backgrou nd, Mychart documented as of this encounter Miscellaneous Notes * Telephone Encounter - Janet Haney MA - 12/26/2021 2:40 PM EDT Called and spoke with pharmacy regarding script clarification request that was faxed to our office. Verified sig w/ PCP and clarified sig should be: 1 cap in the morning by mouth and 2 caps in the evening . Tech verbalized understanding. No further action needed. documented in this encounter Plan of Treatment Not on file documented as of this encounter Goals Goal Patient Goal Type Associated Problems Recent Progress Patient-Stated? Author Depression/Self-C are Care Management On track(2020 3:24 PM EDT) Selvin Melo, [facility] Note: I will increase my knowledge and [...] On track(2020 3:24 PM EDT) Selvin Melo, [facility] Note: I will increase my knowledge and [...] Assessment Noted Time PHQ-9 Depression Total Score: 8 03/20/20 21 2:05 PM EDT documented as of this encounter Care Teams Conveyor Operator Relationship Specialty Start Date End Date Geovanna Davis MD [address] [facility] [address] [place] [phone] PCP - General Internal Medicine 08/16/20 [facility], Virtual Behavioral 23 [facility], [address] [place] [address] Fiscal OfficerSupervisor [employer] Health 08/31/20 documented as of this encounter
--- OUTSIDE RECORDS SUMMARY | 2024-06-18 11:51 | XMS_ITS | Encounter Summary ---
[facility] Address [address] [place] [address] Care Team Providers Care Hydramatic Specialist Name Role Phone Geovanna Davis MD Primary Care Provider + [phone] [facility], [facility] Unavailable + [phone] Reason for Visit * Reason Comments Anxiety VV consent read to p t-kmPt [facility] for her Depression Psychiatrist stated that 4-5 hydroxyzine 50mg tablets at night were OK, pt wants to make sure it is safe Encounter Details Date Type Department Care Team (Late st Contact Info) Description 12/26/2021 11:15 AM EDT Telemedicine [facility] [address] Geovanna Davis MD [address] [facility] [address] [place] [address] Anxiety (Primary Dx); Current moderate episode of major depressive disorder without prior episode (CMS/HCC); Mixed obsessional thoughts and acts; Other insomnia Social History Tobacco Use Types Packs/Day Years Used Date Smoking Tobacco: Never Smokeless Tobacco: Never Tobacco Cessation:Counseling Given: Not Answered Alcohol Use Standard Drinks/Week Comments Yes 2 [...] Sign Reading Time Taken Comments Blood Pressure - - Pulse - - Temperature - - Respiratory Rate - - Oxygen Saturation - - Inhaled Oxygen Concentration - - Weight 59 kg (130 lb) 12/26/2021 11:30 AM EDT pt obtained Height 170.2 cm (5' 7.01 ) 12/26/2021 11:30 AM E DT pt obtained Body Mass Index 20.36 12/26/2021 11:30 AM EDT documented in this encounter Functional Status * Over the last 2 weeks, how often have you been bothered by any of the following problems? Question Answer Date of Assessment Author PRAVIN-7 Total Score 3 12/26/2021 11:33 AM EDT Background, Mychart * Feeling nervous, anxious, or on edge Answer Date of Assessment Author 1 12/26/2021 11:33 AM EDT Backgrou nd, Mychart * Not being able to stop or [...] nd, Mychart documented as of this encounter Progress Notes * Geovanna Davis MD - 12/26/2021 5:56 PM EDTAssociated Problem(s): Anxiety Reviewed hx, sx, questionnaires. Reviewed treatment options. Patient would like to continue Lexapro as is. She is hesitant to stop this as it has helped her quite a bit. We discussed options including adding a medication to use in conjunction with the Lexapro. She has done well with the trial of Lyrica, using only every day to this point. I advised she can increase to BID. Further, she can go ahead and still use the hydroxyzine as needed for anxiety and insomnia. I advised her to use this with caution as she starts the Lyrica in case the Lyrica also causes some sedation. She was advised to schedule a short-term follow-up appointment after this rx dose adjustment. Reviewed rx- continue Lexapro 20mg, Lyrica and buspirone as prescribed, HS hydroxyzine as prescribed. Advised [id number] OV * Geovanna Davis MD - 12/26/2021 11:15 AM EDT Subjective: VIDEO VISIT I conducted this encounter via secure, live Video Visit with the patient. I confirmed the patient'sname and date of . He/She was located at home in [place], with the patient only and theprovider only participating in the encounter. Prior to the interview, the risks and benefits of telemedicine were discussed with the patient and verbal consent was obtained. I have identified myself and conveyed my credentials to this patient. This visit is being performedvia telehealth due to the current state of emergency with COVID-19. I have explained the capabilities and limitations of telemedicine and inability to perform physical examination in assessment today. The patient and I both agree that a telehealth visit is appropriate for his/her current circumstances and symptoms. Patient ID: Jeannine Keene is a 26 y.o. female. Date of Service: 12/26/21 Is this a CM Visit?: (!) Yes Chief Complaint: Chief Complaint Patient presents with Anxiety VV consent read to pt-km Pt not happy with [facility] Pt thinks medication has been working really well for her Depression Psychiatrist stated that 4-5 hydroxyzine 50mg tablets at night were OK, pt wants to make sure it issafe History of Present Illness: DATE OF LAST PHYSICAL, CPE, WWE, AWV: ?? Last OV 03/2021 Follow up anxiety/depression TODAY: Notes she is doing very well Did some therapy Saw psychiatrist- took awhile to get rx adjusted Found out her psych went on medical leave They asked her to see a new new provider She had difficult time with scheduling appts. RX there and provider relationship terminated when she couldn't make her appt. She is back to taking Lexapro, taking pregabalin 2 at night, 1 in AM, buspirone 2 at night, 1 in AM; psych also told her it is ok to take hydroxyzine 50mg 4-5 tab HS. I advised her to take maximum [id number] HS PHQ-2 Score: (P) 0 Suicidal ideation: Reported impairment: PRAVIN-7 Total: 3 Risk Category: Minimal (0-4) Reported impairment: Not difficult at all 07/20/2021: rx changed to sertraline I recommended that we discontinue Lexapro. We will change this to sertraline. Since she is alreadytaking Lexapro 20 mg, I suggested that we start with sertraline 150 mg as a possible equivalent andor slight increase from where she is currently with the SSRI. We discussed having her monitor closely for any side effects. I advised her to reduce her Lyrica to half the dose that she is currently using. I also recommendedthat we should have her use something different to augment the SSRI and also to possibly help her with sleep. She also notes that her appetite is down and her weight is also down. I decided to use Seroquel at bedtime to try to help with all of these. I advised her to for start with 1 tablet at bedtime of the Seroquel and if she is tolerating this well after 5 days or so, she can increase to 2 tablets at bedtime. Further, patient referred to psychiatry. Short-term follow-up was recommended. I also again advised her that if she is not experiencing any side effects that she believes to be related to the new medication, she should contact me immediately. Doing ok. Time to change rx to something different Last time we discussed that she was on highest dose of Lexapro We added pregabalin- she is too sedated with dosing in daytime. It did help her for awhile. About 3-4 weeks ago noticed increase in OCD/anxiety sx. She couldn't settle herself. More OCD behaviors- repetitive behaviors. Easily irritable. Not eating + weight loss 10# Constantly feels worried. Not sleeping at all. Has taken 2-3 hydroxyzine at a time- not helping her sleep. Used to be that she could take less pregabalin, hydroxyzine and was effective. +s/e dry mouth, night sweats 03/20/2021: Rec continue Lexapro, Increase Lyrica to BID, use hydroxyzine HS, PRN Sleeping a bit better She is doing better, she takes the pregabalin with hydroxyzine some times and this works well. She was worried about taking it daily. Falls asleep faster and stays asleep. Re: anxiety is improved. Last week was rough. Grandmother is in hospital and dying. She feels like she is coping better. Broke up with boyfriend. Overall feels how good she is doing in dealing with things. Weight loss about 8#- maybe her appetite is down PHQ-9 Score: 8; Risk Category: Mild (5-9) Suicidal ideation: Not at all Reported impairment: Somewhat difficult PRAVIN-7 Total: 6 Risk Category: Mild (5-9) Reported impairment: Somewhat difficult 02/28/2021: PLAN: Patient would like to continue Lexapro as is. She is hesitant to stop this as it has helped her quite a bit. We discussed options including adding a medication to use in conjunction with the Lexapro. She is open to this option. After considering our different choices, I decided to have her try a low-dose of Lyrica. I also considered other options including atypical antidepressants and tricyclic antidepressants but I was concerned about possible side effects and oversedation. Further, she can go ahead and still use the hydroxyzine as needed for anxiety and insomnia. I advised her to use this with caution as she starts the Lyrica in case the Lyrica also causes some sedation. S he was advised to schedule a short-term follow-up appointment. Reports increasing anxiety, depression Not sleeping Current rx: Lexapro 20mg, hydroxyzine 50-100 mg No appetite at all Increase in crying, outbursts- now 2X per week No energy Not sleeping- taking 50 mg hydroxyzine Still exercising Some OCD counting behaviors coming back The Lexapro was working well before she started back to school PRAVIN-7 Total: 12 Risk Category: Moderate (10-14) Reported impairment: Somewhat difficult PHQ-9 Score: (P) 15; Risk Category: Moderately Severe (15-19) Suicidal ideation: Not at all Reported impairment: (P) Somewhat difficult Patient Active Problem List Diagnosis Routine general [...] high doses gastric ulcer diagnosed last year Past Surgical History: Procedure Laterality Date FRACTURE SURGERY nose broken ~6y ago WISDOM TOOTH EXTRACTION 2020 Family History Problem Relation Age of Onset Hypothyroidism Mother Hypertension Mother Hypertension Father Fibromyalgia Maternal Grandmother Hyperlipidemia Maternal Grandmother Hypertension Maternal Grandmother Kidney disease Maternal Grandmother COPD Maternal Grandmother Diabetes Maternal Grandmother Depression Sister Social History Socioeconomic History Marital status: Single Spouse name: Not on file Number of children: Not on file Years of education: Not on file Highest education level: Not on file Occupational History Not on file Tobacco Use Smoking status: Never Smokeless tobacco: Never Vaping Use Vaping Use: Never used Substance and Sexual Activity Alcohol use: Yes Alcohol/week: 2.0 standard drinks Types: 2 Glasses of wine per week Drug use: Never Sexual activity: Yes Partners: Male control/protection: I.U.D. Other Topics Concern Not on file Social History Narrative Not on file Social Determinants of Health Financial Resource Strain: Not on file Food Insecurity: Not on file Transportation Needs: Not on file Physical Activity: Not on file Stress: Not on file Social Connections: Not on file Intimate Partner Violence: Unknown Has felt physically or emotionally unsafe where they currently live: Not on file Physically hurt by someone in the past 12 months: Not on file Humiliated or emotionally abused in past 12 months: Not on file Housing Stability: Not on file Outpatient Medications Prior to Visit Medication Sig Dispense Refill buspirone (BUSPAR) 5 MG tablet Take 5 mg by mouth. Take 2 pills qam and 1 pill qhs escitalopram oxalate (LEXAPRO) 20 MG tablet TAKE 1 TABLET BY MOUTH EVERY DAY 30 tablet 0 hydrOXYzine (ATARAX) 50 MG tablet TAKE 3 TABLETS (150 MG TOTAL) BY MOUTH NIGHTLY NEEDED. (Patient taking differently: Take 200 mg by mouth nightly as needed.) 90 tablet 0 pregabalin (LYRICA) 25 MG capsule TAKE 1 CAPSULE BY MOUTH 3 TIMES A DAY. 90 capsule 0 No facility-administered medications prior to visit. The following portions of the patient's history were reviewed and updated as appropriate: medications, allergies, past medical history, family history, social history, surgical history, current problems. All of the patient's ROS was normal except as documented in the HPI. Review of Systems: All systems reviewed and negative unless previously mentioned in the HPI. ROS Objective: Ht 1.702 m (5' 7.01 ) Comment: pt obtained Wt 59 kg (130 lb) Comment: pt obtained BMI 20.36 kg/m?? Physical Exam: Gen: alert and oriented, NAD, well appearing Resp: normal RR, no tachypnea, no retractions Skin: no visualized rash on observed skin Psych: normal mood, A and O x3 Assessment and Plan: 1. Anxiety 2. Current moderate episode of major depressive disorder without prior episode (CMS/HCC) 3. Mixed obsessional thoughts and acts 4. Other insomnia Problem List Items Addressed This Visit Anxiety - Primary Reviewed hx, sx, questionnaires. Reviewed treatment options. Patient would like to continue Lexapro as is. She is hesitant to stop this as it has helped her quite a bit. We discussed options including adding a medication to use in conjunction with the Lexapro. She has done well with the trial of Lyrica, using only every day to this point. I advised she can increase to BID. Further, she can go ahead and still use the hydroxyzine as needed for anxiety and insomnia. I advised her to use this with caution as she starts the Lyrica in case the Lyrica also causes some sedation. She was advised to schedule a short-term follow-up appointment after this rx dose adjustment. Reviewed rx- continue Lexapro 20mg, Lyrica and buspirone as prescribed, HS hydroxyzine as prescribed. Advised [id number] OV Relevant Medications escitalopram oxalate (LEXAPRO) 20 MG tablet pregabalin (LYRICA) 25 MG capsule Current moderate episode of major depressive disorder without prior episode (CMS/HCC) Relevant Medications escitalopram oxalate (LEXAPRO) 20 MG tablet buspirone (BUSPAR) 5 MG tablet OCD (obsessive compulsive disorder) Relevant Medications escitalopram oxalate (LEXAPRO) 20 MG tablet buspirone (BUSPAR) 5 MG tablet Other insomnia Relevant Medications hydrOXYzine (ATARAX) 50 MG tablet Medications Ordered This Encounter Medications escitalopram oxalate (LEXAPRO) 20 MG tablet Sig: Take 1 tablet (20 mg total) by mouth daily. Dispense: 30 tablet Refill: 5 pregabalin (LYRICA) 25 MG capsule Si cap by mouth and 2 cap in evening Dispense: 90 capsule Refill: 5 Not to exceed 3 additional fills before 01/27/2022. buspirone (BUSPAR) 5 MG tablet Sig: Take 1 pill qam and 2 pills qhs Dispense: 90 tablet Refill: 5 hydrOXYzine (ATARAX) 50 MG tablet Sig: Take 3 tablets (150 mg total) by mouth nightly as needed. Dispense: 90 tablet Refill: 5 DX Code Needed . Medications Discontinued During This Encounter Medication Reason escitalopram oxalate (LEXAPRO) 20 MG tablet Reorder pregabalin (LYRICA) 25 MG capsule Reorder hydrOXYzine (ATARAX) 50 MG tablet Reorder buspirone (BUSPAR) 5 MG tablet Reorder I spent 15 minutes face to face with the patient, providing patient care, education, and counseling. Follow-Up: Return in about 3 months (around 03/28/2022) for Depression/anxiety follow up PRAVIN-7, PHQ-9, SCHEDULEAnnual physical. Patient Goals: Goals Anxiety I will increase my knowledge and skill around developing and using strategies to reduce symptoms ofanxiety and stress, to feel better when I am feeling worried, irritated, or anxious, and to improvecoping skills, as evidenced by: I will: -Practice [...] 3 well-balanced meals daily, including 1-2 snacks Depression/Self-Care I will increase my knowledge and skill around increasing my use of effective strategies to feel better when I am feeling sad, down, or alone in my thoughts, by creating and using a self-care routine to help improve my overall mood, as evidenced by: ?? Identify 2-3 self care activities I can do daily when I get home from work/school (20 min walks,read a book, exercise from home, quality time with my pet, meal prep) ?? When Im off from work I will plan activities ahead of time that I can enjoy in order to decreasesymptoms of depression, such as, hiking, gardening, or [...] for meditation, such as, The Calm nannette Patient Instructions : There are no Patient Instructions on file for this visit. documented in this encounter Plan of Treatment Not on file documented as of this encounter Goals Goal Patient Goal Type Associated Problems Recent Progress Patient-Stated? Author Depression/Self-C are Care Management On track(2020 3:24 PM EDT) Selvin Melo, [facility] Note: I will increase my knowledge [...] On track(2020 3:24 PM EDT) Selvin Melo, [facility] Note: I will increase my knowledge [...] Diagnoses Diagnosis Anxiety- Primary Anxiety state, unspecified Current moderate episode of major depressive disorder without prior episode (CMS/HCC) Mixed obsessional thoughts and acts Other insomnia documented in this encounter Additional Health Concerns Assessment Noted Time PHQ-9 Depression Total Score: 8 03/20/20 21 2:05 PM EDT documented as of this encounter Care Teams Hydramatic Specialist Relationship Specialty Start Date End Date Geovanna Davis MD [address] [place] [address] [address] [place] [address] PCP - General Internal Medicine 08/16/20 [facility] [address] [place] [address], [address] [place] [address] [employer] 08/31/20 documented as of this encounter
--- OUTSIDE RECORDS SUMMARY | 2024-06-18 11:51 | XMS_ITS | Encounter Summary ---
[facility] Address [address] [place] [address] Care Team Providers Care Inside Technical Sales Representative Name Role Phone Geovanna Davis MD Primary Care Provider + [phone] Health, [facility] Unavailable + [phone] Encounter Details Date Type Department Care Team (Late st Contact Info) Description 06/26/2023 Orders Only [facility] [place] [id number] Geovanna Davis MD [address] [facility] [address] [place] [phone] Social History Tobacco Use Types Packs/Day Years [...] track(2020 3:24 PM EDT) No Selvin Gray [facility] Note: I will increase my knowledge [...] On track(2020 3:24 PM EDT) Selvin Melo, [facility] Note: I will increase my knowledge [...] Time PHQ-9 Depression Total Score: 2 04/09/20 23 10:00 AM EDT documented as of this encounter Care Teams Inside Technical Sales Representative Relationship Specialty Start Date End Date Geovanna Davis MD [address] [facility] [address] [place] [address] PCP - General Internal Medicine 08/16/20 Health, [facility] Behavioral [address] [place] [address], [address] [place] [address] [employer] [facility] 08/31/20 documented as of this encounter
--- OUTSIDE RECORDS SUMMARY | 2024-06-18 11:51 | XMS_ITS | Encounter Summary ---
Author Organization [facility] Address [address] [place] [address] Care Team Providers Care Sql Tech Name Role Phone Geovanna Davis MD Primary Care Provider + [phone] Health, [facility] Behavioral Unavailable + [phone] Encounter Details Date Type Department Care Team (Latest Contact Info) Description 04/14/2024 3:00 PM EDT - 04/14/2024 11:59 PM EDT Hospital Encounter [facility] [address] [place] [address] Geovanna Davis MD [address] [facility] [address] [place] [address] Routine general medical examination at a health care facility; Other fatigue Discharge Disposition: Home or Self Care Social History Tobacco Use Types Packs/Day Years [...] Davis MD documented as of this encounter Medications at Time of Discharge buspirone (BUSPAR) 10 MG tabletIndication s:Anxiety Take 1 tablet (10 mg total) by mouth nightly. 90 tablet 1 04/14/2024 escitalopram oxalate (LEXAPRO) 20 MG tabletIndication s:Anxiety Take 1 tablet (20 mg total) by mouth daily. 90 tablet 1 04/14/2024 hydrOXYzine (ATARAX) 50 MG tabletIndication s:Other insomnia Take 3 tablets (150 mg total) by mouth nightly as needed. 270 tablet 1 04/14/2024 levonorgestrel (KYLEENA) 17.5 mcg/24 hr (5 years) IUD 1 Intra Uterine Device by Intrauterine route once. pregabalin (LYRICA) 25 MG capsuleIndicatio ns:Anxiety Take 2 capsules (50 mg total) by mouth daily at 3:00pm. 180 capsule 1 04/14/2024 documented as of this encounter Plan of Treatment Not on file documented as of this encounter Goals Goal Patient Goal Type Associated Problems Recent Progress Patient-Stated? Author Depression/Self-C are Care Management On track(2020 3:24 PM EDT) Selvin Melo, [facility] Note: I will increase my [...] Management On track(2020 3:24 PM EDT) Selvin Meol [facility] Note: I will increase my [...] 1-2 snacks documented as of this encounter Procedures Procedure Name Priority Date/Time Associated Diagnosis Comments EGFR (CKD-EPI) Routine 04/14/2024 3:03 PM EDT VITAMIN D 25-HYDROXY - IN HOUSE Routine 04/14/2024 3:03 PM EDT Routine general medical examination at a health care facility Other fatigue TSH WITH REFLEX TO FREE T4 Routine 04/14/2024 3:03 PM EDT Routine general medical examination at a health care facility Other fatigue CBC WITH DIFFERENTIAL Routine 04/14/2024 3:03 PM EDT Routine general medical examination at a health care facility HIV ANTIGEN/ANTIBODY WITH REFLEX TO CONFIRMATION Routine 04/14/2024 3:03 PM EDT Routine general medical examination at a health care facility FERRITIN Routine 04/14/2024 3:03 PM EDT Routine general medical examination at a health care facility Other fatigue VITAMIN B12 Routine 04/14/2024 3:03 PM EDT Routine general medical examination at a health care facility Other fatigue LIPID PANEL Routine 04/14/2024 3:03 PM EDT Routine general medical examination at a health care facility CMP Routine 04/14/2024 3:03 PM EDT Routine general medical examination at a health care facility documented in this encounter Results * eGFR (CKD-EPI) (04/14/2024 3:03 PM EDT) eGFR >60 mL/min/1.7 3m2 [facility] Comment: Interpretive Ranges for Patients with Chronic Kidney Disease: eGFR: >60 mL/min ?Normal eGFR: 30-59 mL/min ??Moderately Decreased eGFR: 15-29 mL/min ??Severely Decreased eGFR: <15 mL/min ?Kidney Failure Note: These GFR calculation do not apply in acute situations when GFR is changing rapidly or in patients on dialysis. See additional information on pathology website. Reported eGFR is based on the CKD-EPI 2020 equation that does not use a race coefficient. 04/14/2024 3:03 PM EDT 04/14/2024 9:12 PM EDT Geovanna Davis MD LAB BLOOD ORDERABLES Final R esult Performing Organization Address City/[facility] [address]/[facility] Co de Phone Number [facility] [address] [place] [address] * HIV Antigen/Antibody with Reflex to Confirmation: (04/14/2024 3:03 PM EDT) HIV Result NONREACTIVE Non-Reac tive [facility] Comment:HIV testing performe d by Ag/Ab combo chemiluminescent screening method. 04/14/2024 3:03 PM EDT 04/14/2024 9:12 PM EDT Geovanna Davis MD LAB BLOOD ORDERABLES Final R esult Performing Organization Address City/[facility] [address]/[facility] Co de Phone Number [facility] [address] [place] [address] * Ferritin (04/14/2024 3:03 PM EDT) Ferritin 44.5 11.0 - 307.0 ng/mL [facility] 04/14/2024 3:03 PM EDT 04/14/2024 9:12 PM EDT Geovanna Davis MD LAB BLOOD ORDERABLES Final R esult Performing Organization Address City/[facility] [address]/[facility] Co de Phone Number [facility] [address] [place] [address] * Vitamin B12 (04/14/2024 3:03 PM EDT) Vitamin B12 294 180 - 914 pg/ml [facility] 04/14/2024 3:03 PM EDT 04/14/2024 9:12 PM EDT Geovanna Davis MD LAB BLOOD ORDERABLES Final R esult Performing Organization Address [facility] [address]/[facility] Co de Phone Number [facility] [address] [place] [address] * Vitamin D 25-Hydroxy - In House (04/14/2024 3:03 PM EDT) Vitamin D 25-Hydroxy 32 30 - 100 ng/mL [facility] Comment: In 2010, the Clinical Guidelines Subcommittee of the Endocrine Society Task Force established the recommended serum 25(OH)vitamin D levels of <20ng/mL as deficient and 20 to ??<30ng/mL as insufficient. Other clinical reference citations may show different values. 04/14/2024 3:03 PM EDT 04/14/2024 9:12 PM EDT us Geovanna Davis MD LAB BLOOD ORDERABLES Final R esult Performing Organization Address [facility] de Phone Number [facility] [address] [place] [address] * TSH with reflex to Free T4 (04/14/2024 3:03 PM EDT) TSH 1.40 0.45 - 5.33 uIU/mL [facility] Comment: Reference Ranges for Females: 1st Trimester ? 0.05-3.70 uIU/mL 2nd Trimester ? 0.31-4.35 uIU/mL 3rd Trimester ? 0.41-5.18 uIU/mL 04/14/2024 3:03 PM EDT 04/14/2024 9:12 PM EDT us Geovanna Davis MD LAB BLOOD ORDERABLES Final R esult Performing Organization Address [facility] [address] [facility] Co de Phone Number [facility] [address] [place] [address] * (ABNORMAL) Lipid Panel (04/14/2024 3:03 PM EDT) Cholesterol 215(H) 0 - 199 mg/dL [facility] Comment: Child ages 2-17 years: Acceptable: <170 mg/dL Borderline High: 170-199 mg/dL High: > or =200 mg/dL Adult ages >18 years: Desirable: <200 mg/dL Borderline High: 200-239 mg/dL High: >or =240mg/dL Triglycerides 158(H) 0 - 149 mg/dL [facility] Comment: Child ages 2-9 years: Acceptable: <75 mg/dL Borderline high: 75-99 mg/dL High: > or =100 mg/dL 10-17 years: Acceptable: <90 mg/dL Borderline High: 90-129 mg/dL High: > or =130 mg/dL Adult ages >18 years: Normal: <150 mg/dL Borderline High: 150-199 mg/dL High: 200-499 mg/dL Very High: > or =500 mg/dL HDL 48(L) mg/dL [facility] Comment: Child ages 2-17 years: Low HDL: <40 mg/dL Borderline Low: 40-45 mg/dL Acceptable: >45 mg/dL Adult ages >18 years: Males: > or =40 mg/dL Females: > or =50 mg/dL LDL, Calculation 135(H) 0 - 100 mg/dL [facility] Cholesterol/HDL Ratio 4.5 0.0 - 5.0 [facility] 04/14/2024 3:03 PM EDT 04/14/2024 9:12 PM EDT us Geovanna Davis MD LAB BLOOD ORDERABLES Final R esult [facility] [address] [place] [address] * CMP (04/14/2024 3:03 PM EDT) Sodium 139 136 - 145 mmol/L [facility] Potassium 4.3 3.5 - 5.1 mmol/L [facility] Chloride 101 98 - 107 mmol/L [facility] CO2 29 21 - 31 mmol/L [facility] BUN 11 7 - 25 mg/dL [facility] Creatinine 0.76 0.60 - 1.20 mg/dL [facility] Glucose, Random 87 70 - 199 mg/dL [facility] Calcium, Total 9.7 8.6 - 10.3 mg/dL [facility] Osmolality (calculated) 276 270 - 295 mOsm/kg [facility] Anion Gap 9 4 - 12 [facility] Albumin 4.3 3.5 - 5.7 g/dL [facility] Bilirubin, Total 0.4 0.3 - 1.0 mg/dL [facility] Alkaline Phosphatase 71 34 - 104 IU/L [facility] ALT 15 7 - 52 IU/L [facility] AST 16 13 - 39 IU/L [facility] Protein, Total 6.9 6.4 - 8.9 g/dL [facility] Albumin/Globulin Ratio 1.7 1.2 - 2.3 [facility] 04/14/2024 3:03 PM EDT 04/14/2024 9:12 PM EDT us Geovanna Davis MD LAB BLOOD ORDERABLES Final R esult [facility] [address] [place] [address] * (ABNORMAL) CBC with Differential (04/14/2024 3:03 PM EDT) Differential Percent Diff % [facility] Differential Absolute Diff Absolute [facility] WBC 10.9 3.6 - 11.2 K/uL [facility] RBC 5.29(H) 3.63 - 4.92 M/uL [facility] Hemoglobin 14.6(H) 10.9 - 14.3 g/dL [facility] Hematocrit 44(H) 31 - 42 % [facility] Mean Cell Volume 82 74 - 96 fL [facility] Mean Cell Hemoglobin 28 24 - 33 pg [facility] Mean Cell Hemoglobin Concentration 33 33 - 36 g/dL [facility] RDW 13.2 12.3 - 17.0 % [facility] Platelet Count 365 150 - 450 K/uL [facility] Mean Platelet Volume 8.8 7.5 - 11.2 fL [facility] Neutrophils 52 43 - 77 % [facility] Lymphocytes 36 16 - 44 % [facility] Monocytes 9 5 - 13 % [facility] Eosinophils 2 1 - 8 % [facility] Basophils 1 0 - 1 % [facility] Neutrophils Absolute 5.7 1.8 - 7.8 K/uL [facility] Lymphocytes Absolute 3.9(H) 1.0 - 3.0 K/uL [facility] Monocytes Absolute 0.9 0.3 - 1.0 K/uL [facility] Eosinophils Absolute 0.3 0.0 - 0.5 K/uL [facility] Basophils Absolute 0.1 0.0 - 0.1 K/uL [facility] Nucleated RBCS 0 /100 WBC [facility] 04/14/2024 3:03 PM EDT 04/14/2024 9:12 PM EDT us Geovanna Davis MD LAB BLOOD ORDERABLES Final R esult Performing Organization Address City/State/[facility] Co de Phone Number [facility] [address] [facility] [place] [address] documented in this encounter Visit Diagnoses Diagnosis Routine general medical examination at a health care facility Other fatigue documented in this encounter Additional Health Concerns Assessment Noted Time PHQ-9 Depression Total Score: 4 04/14/20 24 2:00 PM EDT documented as of this encounter Care Teams Sql Tech Relationship Specialty Start Date End Date Geovanna Davis MD [address] [facility] [address] [place] [id number] PCP - General Internal Medicine 08/16/20 Health, [facility] [address] [place] [address], [address] [place] [address] [employer] Supervisor Health 08/31/20 documented as of this encounter
--- OUTSIDE RECORDS SUMMARY | 2024-06-18 11:51 | XMS_ITS | Encounter Summary ---
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 Orthostatic with EMS. Encounter Details Date Type Department Care Team (Late st Contact Info) Description 05/14/2016 5:34 PM EST - 05/14/2016 8:37 PM EST Emergency [facility] Emergency Department [address] [place] [address] Leader, Sudarshan Batista Jr., DO [address] [facility] [address] [facility], [place] [address] Syncope, unspecified syncope type (Primary Dx) Discharge Disposition: Home or Self Care Social History Tobacco Use Types Packs/Day Years Used Date Smoking Tobacco: Never Assessed Comments Unknown Sex and Gender Information Value Date Recorded Sex Assigned at Female 03/26/2022 11:03 AM EDT Legal Sex Female 5:33 PM EST Gender Identity Female 03/26/2022 11:03 AM EDT Sexual Orientation Straight 03/26/2022 11 :03 AM EDT documented as of this encounter Last Filed Vital Signs Vital Sign Reading Time Taken Comments Blood Pressure 120/71 05/14/2016 8:34 PM EST Pulse 60 05/14/2016 8:34 PM EST Temperature 36.7 ??C (98.1 ??F) 05/14/2016 8:34 PM ES T Respiratory Rate 18 05/14/2016 8:34 PM EST Oxygen Saturation 100% 05/14/2016 8:34 PM EST Inhaled Oxygen Concentration - - Weight - - Height - - Body Mass Index - - documented in this encounter Discharge Instructions * Discharge Instructions* GARY Yu - 05/14/2016 8:25 PM EST Images from the original note were not included. Evidence of mild dehydration noted on today's exam. Continue to drink plenty of fluids Follow-up closely with primary care and/or cardiology for ongoing evaluation Return to the emergency department in 24-48 hours for any new or worsening symptoms Vasovagal Syncope: Care Instructions Your Care Instructions Vasovagal syncope (say [id number] [id number] ) is sudden dizziness or fainting that can be set off by things such as pain, stress, fear, or trauma. You may sweat or feel lightheaded, sick to your stomach, or tingly. The problem causes the heart rate to slow and the blood vessels to widen, or dilate, for a short time. When this happens, blood pools in the lower body, and less blood goes to the brain. You can usually get relief by lying down with your legs raised (elevated). This helps more blood toflow to your brain and may help relieve symptoms like feeling dizzy. Some doctors may recommend a technique that involves tensing your fists and arms. This type of fainting is often easy to predict. For example, it happens to some people when they see blood or have to get a shot. They may feel symptoms before they faint. An episode of vasovagal syncope usually responds well to self-care. Other treatment often isn't needed. But if the fainting keeps happening, your doctor may suggest further treatments. Follow-up care is a taylor part of your treatment and safety. Be sure to make and go to all appointments, and call your doctor if you are having problems. It's also a good idea to know your test resultsand keep a list of the medicines you take. How can you care for yourself at home? ?? Drink plenty of fluids to prevent dehydration. If you have kidney, heart, or liver disease and have to limit fluids, talk with your doctor before you increase your fluid intake. ?? Try to avoid things that you think may set off vasovagal syncope. ?? Talk to your doctor about any medicines you take. Some medicines may increase the chance of thiscondition occurring. ?? If you feel symptoms, lie down with your legs raised. Talk to your doctor about what to do if your symptoms come back. When should you call for help? Call 911 anytime you think you may need emergency care. For example, call if: ?? You have symptoms of a heart problem. These may include: ?? Chest pain or pressure. ?? Severe trouble breathing. ?? A fast or irregular heartbeat. Watch closely for changes in your health, and be sure to contact your doctor if: ?? You have more episodes of fainting at home. ?? You do not get better as expected. To learn more about Vasovagal Syncope: Care Instructions , log into your personal health record [email or web address] and search for L754 in the Güdpod. If you are not a [employer] Potato user, visit [email or web address]/healtheducation and enter L754 to learn more about Vasovagal Syncope: CareInstructions . Current as of: November 25, 2015 Content Version: 11.0 ?? [id number] [employer]. Care instructions adapted under license by your healthcare professional. If you have questions about a medical condition or this instruction, always ask your healthcare professional. [employer] disclaims any warranty or liability for your use of this information. documented in this encounter Medications at Time of Discharge Medication Sig Dispense Quantity Refills Last Filled Start D ate End Date GENERIC CONTROL, SPECIFIC, 2020 documented as of this encounter Progress Notes * ROBB Garibay - 05/14/2016 6:17 PM EST History & Physical Chief Complaint Chief Complaint in Triage Patient presents with ??? Loss of Consciousness Syncope while at work today. Orthostatic with EMS. History of Present Illness Jeannine Keene is a 21 y.o. female with a history of 4-5 syncopal episodes in the past presents tonight for a syncopal episode that occurred while she was standing up at work. She states that she began to feel dizzy, so she sat down, and then she lost consciousness. Per her coworker who witnessedthe episode, she lost consciousness for 15-30 seconds. She states that there was no seizure activity, loss of bowel or bladder function, or hitting of her head, and she denies confusion, vision changes, weakness, SOB, CP, palpitations, or calf pain. She reports that this episode was different in that it came on quicker. She reports that when this has happened before, she usually has had a her knees locked and has been standing for a long period of time. This time, she reports being careful not to lock her knees while she was standing. She reports that she ate just 30 minutes prior to the episode. She denies having been tested for her past episodes. The historian is the patient Review of Systems: See HPI, all other systems reviewed and are otherwise negative Constitutional: No fever Eyes: No eye drainage, no vision changes HENT: No runny nose Cardiovascular: No chest pain Respiratory: No shortness of breath Gastrointestinal: No vomiting or diarrhea Genitourinary: No dysuria Musculoskeletal: No leg swelling Skin: No rashes Allergic/Immunologic: No hives Neurological: No slurred speech, no headache, no weakness, no confusion. Allergies: Sulfa (sulfonamide antibiotics) Past Medical History: She has no past medical history on file. Past Surgical History: She has no past surgical history on file. Medications : GENERIC CONTROL, SPECIFIC, Family History: Her family history is not on file. Social History: She has no tobacco, alcohol, and drug history on file. Physical Exam Adult Medical Physical Exam Reviewed vital signs and nursing note as charted by RN. CONSTITUTIONAL: Alert and oriented and responds appropriately to questions. Well-appearing; well-nourished HEAD: Normocephalic; atraumatic EYES: PERRL; Conjunctivae clear, sclerae non-icteric ENT: normal nose; no rhinorrhea; moist mucous membranes; pharynx without lesions noted NECK: Supple without meningismus; non-tender; no cervical lymphadenopathy, no masses CARD: Regular rate and rhythm; no murmurs, no clicks, no rubs, no gallops; symmetric distal pulses RESP: Normal chest excursion without splinting or tachypnea; breath sounds clear and equal bilaterally; no wheezes, no rhonchi, no rales, ABD/GI: Normal bowel sounds; non-distended; soft, non-tender, no rebound, no guarding; no palpable organomegaly or masses. BACK: The back appears normal and is non-tender to palpation, there is no CVA tenderness EXT: Normal ROM in all joints; non-tender to palpation; no cyanosis, no effusions, no edema SKIN: Normal color for age and race; warm; dry; good turgor; capillary refill < 2 seconds; no acute lesions noted NEURO: Moves all extremities equally; Motor and sensory function intact PSYCH: The patient's mood and manner are appropriate. Grooming and personal hygiene are appropriate. Results I have personally reviewed the following lab, radiology and other results No results found for this visit on 05/14/16. No orders to display Medical Decision Making & ED course ED Course documented in this encounter ED Notes * Kierra Baptiste RN - 05/14/2016 6:47 PM EST Pt states she does not want an IV. I can't handle it. * GARY Yu - 05/14/2016 5:34 PM EST Images from the original note were not included. [facility] Emergency Department Provider Note Room: B 25/B 25 History Chief Complaint in Triage Patient presents with ??? Loss of Consciousness Syncope while at work today. Orthostatic with EMS. The historian is the patient HPI: Jeannine eKene is a 21 y.o. female with no significant past medical history who presents to the emergency Department with complaints of syncopal episode. Patient reports that just prior to arrival she was at work when she went from a seated to standing position, felt very dizzy and subsequently passed out for approximately 10 seconds. No head injury. No reports of pain. She reports that she has had the same symptoms approximately 4-5 times in the past. They seem to come on when she locksher knees or when she stands up too fast. She has never been formally evaluated for the same. Today's symptoms felt similar to prior episodes. No recent fever or illness. No chest pain or shortness of breath. She denies any recent nausea, vomiting or diarrhea. No burning with urination. Last menstrual cycle was approximately 3 weeks ago and regular. She reports that she did have something to eat approximately 3-4 hours ago and does admit that she hasn't been drinking as much water as maybe she should. Review of Systems: See HPI, all other systems reviewed and are otherwise negative Constitutional: No fever Eyes: No blurred vision HENT: No runny nose Cardiovascular: No chest pain Respiratory: No shortness of breath Gastrointestinal: No vomiting or diarrhea, no abdominal pain Genitourinary: No dysuria Musculoskeletal: No leg swelling Skin: No rashes Neurological: No slurred speech, no weakness, + LOC x 10 sec MEDICATIONS: Patient's Medications Previous Medications GENERIC CONTROL, SPECIFIC, Modified Medications No medications on file ALLERGIES: Allergies Allergen Reactions ??? Sulfa (Sulfonamide Antibiotics) PAST MEDICAL HISTORY: No past medical history on file. PAST SURGICAL HISTORY: No past surgical history on file. SOCIAL HISTORY: Social History Substance Use Topics ??? Smoking status: Not on file ??? Smokeless tobacco: Not on file ??? Alcohol use Not on file FAMILY HISTORY: No family history on file. Physical Exam ED Triage Vitals Temp -- Temp src -- Heart Rate 05/14/16 1803 65 BP 05/14/16 1803 110/69 Respirations 05/14/16 1803 18 SpO2 05/14/16 1803 100 % Reviewed vital signs and nursing note as charted by RN. Adult Medical Physical Exam Reviewed vital signs and nursing note as charted by RN. CONSTITUTIONAL: Alert and oriented and responds appropriately to questions. Well-appearing; well-nourished HEAD: Normocephalic; atraumatic, non-tender EYES: PERRL; EOM intact bilaterally, Conjunctivae clear, sclerae non-icteric ENT: normal nose; no rhinorrhea; moist mucous membranes; pharynx without lesions noted NECK: Supple without meningismus; non-tender; no cervical lymphadenopathy, no masses CARD: Regular rate and rhythm; no murmurs, no clicks, no rubs, no gallops; symmetric distal pulses RESP: Normal chest excursion without splinting or tachypnea; breath sounds clear and equal bilaterally; no wheezes, no rhonchi, no rales, ABD/GI: Normal bowel sounds; non-distended; soft, non-tender, no rebound, no guarding; no palpable organomegaly or masses. EXT: Normal ROM in all joints; non-tender to palpation; no cyanosis, no effusions, no edema SKIN: Normal color for age and race; warm; dry; good turgor; capillary refill < 2 seconds; no acute lesions noted NEURO: Moves all extremities equally; Motor and sensory function intact, cranial nerves II through XII intact, 5 out of 5 strength bilateral upper and lower extremities, sensation intact to light touch bilateral upper and lower extremities PSYCH: The patient's mood and manner are appropriate. Grooming and personal hygiene are appropriate. Results I personally reviewed the results in the chart as listed below Results for orders placed or performed during the hospital encounter of 05/14/16 CBC Result Value Ref Range WBC 10.0 3.6 - 11.2 K/uL RBC 4.60 3.63 - 4.92 M/uL Hemoglobin 13.7 11.4 - 15.0 g/dL Hematocrit 40 31 - 42 % Mean Cell Volume 87 74 - 96 fL Mean Cell Hemoglobin 30 26 - 33 pg Mean Cell Hemoglobin Concentration 34 33 - 36 g/dL RDW 13.1 12.3 - 17.0 % Platelet Count 247 159 - 386 K/uL Mean Platelet Volume 9.4 7.5 - 11.2 fL POCT , Urine Result Value Ref Range , Urine, POCT Negative Urinalysis, Point of Care Result Value Ref Range Urine Color, Point of Care Yellow Urine Clarity, Point of Care Clear Urine Glucose, Point of Care Negative Urine Bilirubin, Point of Care Negative Urine Ketones, Point of Care Trace (A) Urine Specific Tanner, Point of Care >=1.030 (A) 1.003 - 1.035 Urine Blood, Point of Care Negative Urine pH, Point of Care 6.0 5.0 - 8.0 Urine Protein, Point of Care 1+ (A) Urine Urobilinogen, Point of Care 0.2 Urine Nitrite, Point of Care Negative Urine Leukocyte Esterase, Point of Care Negative No orders to display Medical Decision Making 21 y.o. female who presents to the emergency Department with complaints of brief syncopal episode just prior to arrival. History of the scene. EMS reports that she was orthostatic when they evaluatedher and blood sugar was within normal limits. On today's exam patient is vitally stable, well appearing and in no acute distress. No focal neurologic deficits on my exam. No signs of trauma. Offered baseline EKG, repeat glucose, urinalysis as well as H&H to ensure no signs of hypoglycemia, anemia, urinary tract infection, as the cause of her symptoms. I do suspect likely orthostatic hypotension based on patient's recount of the symptoms as well as prior symptoms in the past. She continues to remain well-appearing plan DC home with close outpatient follow-up with primary care and/or cardiology for ongoing evaluation Progress Notes 8:26 PM No acute findings on EKG. Urinalysis showing evidence of mild dehydration. Negative urine . H&H stable and glucose within normal limits. Patient continues to remain well-appearing. Suspect likely vasovagal syncope. Patient was counseled on increased oral hydration as well as follow-up with primary care and/or cardiology for ongoing evaluation. Strict return precautions were also advised Disposition Clinical Impression: Syncope, unspecified syncope type (primary encounter diagnosis) Final Disposition: Discharge This documentation was generated through the use of dictation and/or voice recognition software, and as such, may contain spelling or other poultry cutter errors. Any questions regarding the content of this documentation should be directed to the individual who electronically signed. GARY Yu 05/14/162025 Cosigned by Sudarshan Solomon DO at 05/14/2016 8:28 PM EST documented in this encounter Plan of Treatment Pending Results Name Type Priority Associated Diagnoses Date /Time ECG INTERPRETATION; ECG Routine 05/14 8:24 PM EST documented as of this encounter Procedures Procedure Name Priority Date/Time Associated Diagnosis Comments ECG 12-LEAD STAT 05/15/2016 11:24 AM EST ECG INTERPRETATION Routine 05/14/2016 8: 24 PM EST POCT , URINE STAT 05/14/2016 8:04 PM EST URINALYSIS, POINT OF CARE Routine 05/14/2016 7:58 PM EST CBC STAT 05/14/2016 6:26 PM EST EMS RUNSHEET 05/14/2016 4:56 PM EST documented in this encounter Results * ECG 12 lead; (05/15/2016 11:24 AM EST) 05/14/2016 8:07 PM EST 05/15/2016 11:24 AM EST Impressions MUSE - 05/15/2016 11:24 AM EST Normal sinus rhythm Normal ECG No previous ECGs available Confirmed by ABIGAIL ARANDA ([id number]) on 05/15/2016 11:24:10 AM Narrative MUSE - 05/15/2016 11:24 AM EST Ventricular Rate: 67 Atrial Rate: 67 P-R Interval: 128 QRS Duration: 82 Q-T Interval: 380 QTC Calculation(Bezet): 401 P [place]: 67 R [place]: 38 T [place]: 58 Procedure Note Abigail Aranda MD - 05/15/2016 Ventricular Rate: 67 Atrial Rate: 67 P-R Interval: 128 QRS Duration: 82 Q-T Interval: 380 QTC Calculation(Bezet): 401 P [place]: 67 R [place]: 38 T [place]: 58 Impression: Normal sinus rhythm Normal ECG No previous ECGs available Confirmed by ABIGAIL ARANDA ([id number]) on 05/15/2016 11:24:10 AM Sudarshan Solomon Jr., DO ECG ORDERABLES Fin al Result TRISH * POCT , Urine (05/14/2016 8:04 PM EST) , Urine, POCT Negative 05/14/2016 8:04 PM EST Sudarshan Solomon Jr., DO POINT OF CARE TEST ORDERABLES Final Result * (ABNORMAL) Urinalysis, Point of Care (05/14/2016 7:58 PM EST) Urine Color, Point of Care Yellow [facility] Urine Clarity, Point of Care Clear [facility] Urine Glucose, Point of Care Negative [facility] Urine Bilirubin, Point of Care Negative [facility] Urine Ketones, Point of Care Trace(A) [facility] Urine Specific Tanner, Point of Care >=1.030(A) 1.003 - 1.035 [facility] Urine Blood, Point of Care Negative [facility] Urine pH, Point of Care 6.0 5.0 - 8.0 [facility] Urine Protein, Point of Care 1+(A) [facility] Urine Urobilinogen, Point of Care 0.2 [facility] Urine Nitrite, Point of Care Negative [facility] Urine Leukocyte Esterase, Point of Care Negative [facility] 05/14/2016 7:58 PM EST 05/14/2016 7:59 PM EST us Sudarshan Solomon Jr., DO POCT ORDERABLES - D EVICE Final Result Performing Organization Address City/[facility] Co de Phone Number [facility] [address] [place] [phone] * CBC (05/14/2016 6:26 PM EST) WBC 10.0 3.6 - 11.2 K/uL [facility] RBC 4.60 3.63 - 4.92 M/uL [facility] Hemoglobin 13.7 11.4 - 15.0 g/dL [facility] Hematocrit 40 31 - 42 % [facility] Mean Cell Volume 87 74 - 96 fL [facility] Mean Cell Hemoglobin 30 26 - 33 pg [facility] Mean Cell Hemoglobin Concentration 34 33 - 36 g/dL [facility] RDW 13.1 12.3 - 17.0 % [facility] Platelet Count 247 159 - 386 K/uL [facility] Mean Platelet Volume 9.4 7.5 - 11.2 fL [facility] 05/14/2016 6:26 PM EST 05/14/2016 6:32 PM EST us Estefany Manning PA-C LAB BLOOD ORDERABLES Final R esult Performing Organization Address [facility] Co de Phone Number [facility] [address] [place] [phone] * EMS [facility] (05/14/2016 4:56 PM EST) 05/14/2016 4:56 PM EST us Eso Provider NURSING TREATMENT ORDERABLES - O NCE Final Result EMS [facility]ETS documented in this encounter Visit Diagnoses Diagnosis Syncope, unspecified syncope type- Primary documented in this encounter Active and Recently Administered Medications
--- OUTSIDE RECORDS SUMMARY | 2024-06-18 11:51 | XMS_ITS | Encounter Summary ---
Author Organization [facility] & [facility] Address [address] [place] [address] Care Team Providers Care Bottle And Glass Inspector Name Role Phone Geovanna Davis MD Primary Care Provider + [phone] Health, [facility] Unavailable + [phone] Reason for Visit * Reason Comments Anxiety Depression Encounter Details Date Type Department Care Team (Late st Contact Info) Description 10/23/2022 10:45 AM EDT Office Visit [address] [place] [address] Geovanna Davis MD [address] [facility] [address] [place] [address] Current moderate episode of major depressive disorder without prior episode (CMS/HCC) (Primary Dx); Anxiety; Mixed obsessional thoughts and acts; Other insomnia Social History Tobacco Use Types Packs/Day Years Used Date Smoking Tobacco: Never Smokeless Tobacco: Never Tobacco Cessation:Counseling Given: Not Answered Alcohol Use Standard Drinks/Week Comments Yes 5 (1 standard drink = 0.6 oz pur e alcohol) PHQ-2 Answer Date Recorded PHQ-2 Total 0 10/23/2022 Comments No Sex and Gender Information Value Date Recorded Sex Assigned at Female 03/26/2022 11:03 AM EDT Legal Sex Female 5:33 PM EST Gender Identity Female 03/26/2022 11:03 AM EDT Sexual Orientation Straight 03/26/2022 11 :03 AM EDT documented as of this encounter Last Filed Vital Signs Vital Sign Reading Time Taken Comments Blood Pressure 130/82 10/23/2022 10:57 AM EDT Pulse 99 10/23/2022 10:57 AM EDT Temperature 36.8 ??C (98.2 ??F) 10/23/2022 10:57 AM E DT Respiratory Rate - - Oxygen Saturation 99% 10/23/2022 10:57 AM EDT Inhaled Oxygen Concentration - - Weight 73.2 kg (161 lb 6 oz) 10/23/2022 10:57 AM EDT Height 171.1 cm (5' 7.36 ) 10/23/2022 10:57 AM E DT Body Mass Index 25.01 10/23/2022 10:57 AM EDT documented in this encounter Functional Status * Over the last 2 weeks, how often have you been bothered by any of the following problems? Question Answer Date of Assessment Author Feeling nervous, anxious, or on edge 1 10/23/2022 11:00 AM Geovanna Aguayo MD Not being able to stop or control worrying 1 10/23/2022 11:00 AM Geovanna Aguayo MD Worrying too much about different things 1 10/23/2022 11:00 AM Geovanna Aguayo MD Trouble relaxing 0 10/23/2022 11:00 AM Geovanna Aguayo MD Being so restless that it is hard to sit still 0 10/23/2022 11:00 AM Geovanna Aguayo MD Becoming easily annoyed or irritable 0 10/23/2022 11:00 AM Geovanna Aguayo MD Feeling afraid as if somethi ng awful might happen 0 10/23/2022 11:00 AM Geovanna Aguayo MD PRAVIN-7 Total Score 3 10/23/2022 11:00 AM Geovanna Aguayo MD documented as of this encounter Progress Notes * Geovanna Davis MD - 10/23/2022 11:13 AM EDTAssociated Problem(s): Current moderate episode of major depressive disorder without prior episode ([facility]) Depression control: active VERY STABLE Medication Compliance: compliant Medication Management: as noted in orders Self care monitoring recommended daily The patient???s care plan was reviewed and updated. Instructions and counseling were provided regarding patient goals and barriers. She was counseled to adopt a healthy lifestyle. Educational resources and self-management tools have been provided. * Geovanna Davis MD - 10/23/2022 11:12 AM EDTAssociated Problem(s): Other insomnia Reviewed hx,sx. She reports that she is doing well on hydroxyzine 100mg nightly- this is decreased from 150mg- previously rx by psychiatry. Reviewed sleep hygiene. * Geovanna Davis MD - 10/23/2022 10:45 AM EDT Subjective: Patient ID: Ania Wesley is a 27 y.o. female. 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 Sleeping well but still using hydroxyzine 100mg No side effects Lives with boyfriend and two roommates She is still using Buspar and Lexapro as prescribed Would eventually love to wean rx down in the next year 03/29/2022:continue Lexapro 20mg, Lyrica HS and buspirone as prescribed, HS hydroxyzine as prescribed. She is graduating from [employer] school this year. She notes that the anxiety and depression have improved She feels that she is in a good relationship Has had a job offer Lives with boyfriend She has reduced the buspirone, pregabalin- only takes HS She is taking Lexapro in AM Family is in good health Patient Active Problem List Diagnosis Routine general [...] and Sexual Activity Alcohol use: Yes Alcohol/week: 5.0 standard drinks Types: 2 Glasses of wine, 3 Cans of beer per week Drug use: Never Sexual activity: Yes Partners: Male control/protection: I.U.D. Other Topics Concern Not on file Social History Narrative Not on file Social Determinants of Health Financial Resource Strain: Not on file Food Insecurity: Not on file Transportation Needs: Not on file Physical Activity: Not on file Stress: Not on file Social Connections: Not on file Intimate Partner Violence: Not on file Housing Stability: Not on file Outpatient Medications Prior to Visit Medication Sig Dispense Refill buspirone (BUSPAR) 10 MG tablet TAKE 1 TABLET BY MOUTH EVERY DAY AT NIGHT 30 tablet 0 escitalopram oxalate (LEXAPRO) 20 MG tablet Take 1 tablet (20 mg total) by mouth daily. 30 tablet 5 pregabalin (LYRICA) 25 MG capsule TAKE 2 CAPSULES BY MOUTH NIGHTLY. 60 capsule 0 hydrOXYzine (ATARAX) 50 MG tablet Take 3 tablets (150 mg total) by mouth nightly as needed. 90 tablet 5 No facility-administered medications prior to visit. The following portions of the patient's history were reviewed and updated as appropriate: medications, allergies, past medical history, family history, social history, surgical history, current problems. All of the patient's ROS was normal except as documented in the HPI. Review of Systems: All systems reviewed and negative unless previously mentioned in the HPI. ROS Objective: BP 130/82 (BP Location: Right upper arm, BP Position: Sitting, Cuff Size: Adult ([place] [employer])) Pulse 99 Temp 98.2 ??F (36.8 ??C) (Oral) Ht 1.711 m (5' 7.36 ) Wt 73.2 kg (161 lb 6 oz) SpO2 99% BMI 25.01 kg/m?? BP Readings from Last 2 Encounters: 10/23/22 130/82 03/29/22 104/72 Wt Readings from Last 1 Encounters: 10/23/22 73.2 kg (161 lb 6 oz) Physical Exam: Constitutional: General Appearance: No acute distress, well appearing, and well nourished. Pulmonary: Assessment of respiratory effort: No increased work of breathing or signs of respiratorydistress. Auscultation of lungs: Clear to auscultation. Cardiovascular: Palpation of heart: Normal PMI, no thrills. Auscultation of heart: Normal rate and rhythm, normal S1 and S2 without murmurs. Examination of extremities for edema and/or varicosities: normal. Psychiatric: Orientation to person, place and time: Normal. Mood and affect: Normal Other: Results for orders placed or performed during the hospital encounter of 07/15/19 Gynecological Specimen Result Value Ref Range Gynecologic Cytology Final Outreach Gynecologic Cytopathology Report PATIENT ANIA WESLEY N [id number] PROCEDURE DATE 07/15/2019 1995 RECEIPT DATE 07/15/2019 23:20 AGE / SEX 24 Y / F REPORTED DATE 07/16/2019 15:33 LOCATION [address] [place] Outreach PROVIDER(S) ANTONIO PEREZ MD CLIENT ID: [facility] OUTREACH #: 0 CHART #: [id number] Clinical History: LMP: 07/13/2019 Specimen: THINPREP IMAGED PAP TEST WITH HPV REFLEX, CERVICAL/ENDOCERVICAL CYTOLOGIC DIAGNOSIS Satisfactory for evaluation. NEGATIVE FOR INTRAEPITHELIAL LESION OR MALIGNANCY ELECTRONICALLY SIGNED BY LYNDSEY SALMERON NOTE: The Pap test is a screening test designed to aid in the detection of premalignant and malignant conditions of the uterine cervix. It should not be used as the sole means of detecting cervical cancer. Both false positive and false negative results occur. Performing Lab (unless otherwise specified): [place] [address] [facility] Category: NEG for DEBBY No visits with results within 3 Month(s) from this visit. Latest known visit with results is: Hospital Outpatient Visit on 07/15/2019 Component Date Value Gynecologic Cytology 07/15/2019 Value: Final Outreach Gynecologic Cytopathology Report PATIENT ANIA WESLEY N [id number] PROCEDURE DATE 07/15/2019 1995 RECEIPT DATE 07/15/2019 23:20 AGE / SEX 24 Y / F REPORTED DATE 07/16/2019 15:33 LOCATION [address] [place] Out[facility] PROVIDER(S) ANTONIO PEREZ MD CLIENT ID: [facility] OUTREACH #: 0 CHART #: [id number] Clinical History: LMP: 07/13/2019 Specimen: THINPREP IMAGED PAP TEST WITH HPV REFLEX, CERVICAL/ENDOCERVICAL CYTOLOGIC DIAGNOSIS Satisfactory for evaluation. NEGATIVE FOR INTRAEPITHELIAL LESION OR MALIGNANCY ELECTRONICALLY SIGNED BY LYNDSEY SALMERON NOTE: The Pap test is a screening test designed to aid in the detection of premalignant and malignant conditions of the uterine cervix. It should not be used as the sole means of detecting cervical cancer. Both false positive and false negative results occur. Performing Lab (unless otherwise specified): [place] [address] [facility] Category: NEG for DEBBY Assessment and Plan: 1. Current moderate episode of major depressive disorder without prior episode (CMS/HCC) 2. Anxiety 3. Mixed obsessional thoughts and acts 4. Other insomnia Problem List Items Addressed This Visit Anxiety Relevant Medications pregabalin (LYRICA) 25 MG capsule escitalopram oxalate (LEXAPRO) 20 MG tablet Current moderate episode of major depressive disorder without prior episode (CMS/HCC) - Primary Depression control: active VERY STABLE Medication Compliance: compliant Medication Management: as noted in orders Self care monitoring recommended daily The patient???s care plan was reviewed and updated. Instructions and counseling were provided regarding patient goals and barriers. She was counseled to adopt a healthy lifestyle. Educational resources and self-management tools have been provided. Relevant Medications escitalopram oxalate (LEXAPRO) 20 MG tablet buspirone (BUSPAR) 10 MG tablet OCD (obsessive compulsive disorder) Relevant Medications escitalopram oxalate (LEXAPRO) 20 MG tablet buspirone (BUSPAR) 10 MG tablet Other insomnia Reviewed hx,sx. She reports that she is doing well on hydroxyzine 100mg nightly- this is decreased from 150mg- previously rx by psychiatry. Reviewed sleep hygiene. Relevant Medications hydrOXYzine (ATARAX) 50 MG tablet Requested Prescriptions Signed Prescriptions Disp Refills hydrOXYzine (ATARAX) 50 MG tablet 60 tablet 5 Sig: Take 2 tablets (100 mg total) by mouth nightly as needed. pregabalin (LYRICA) 25 MG capsule 60 capsule 5 Sig: Take 2 capsules (50 mg total) by mouth daily. escitalopram oxalate (LEXAPRO) 20 MG tablet 30 tablet 5 Sig: Take 1 tablet (20 mg total) by mouth daily. buspirone (BUSPAR) 10 MG tablet 30 tablet 5 Sig: Take 1 tablet (10 mg total) by mouth nightly. Follow-Up: Return in about 6 months (around 04/24/2023) for Annual physical/Well-child, Depression/anxiety follow up PRAVIN-7, PHQ-9. Patient Goals: Goals Anxiety I will increase [...] On track(2020 3:24 PM EDT) Selvin Melo, [facility] Note: I will increase my knowledge and [...] Management On track(2020 3:24 PM EDT) Selvin Melo [facility] Note: I will increase my knowledge and [...] as of this encounter Visit Diagnoses Diagnosis Current moderate episode of major depressive disorder without prior episode (CMS/HCC)- Primary Anxiety Anxiety state, unspecified Mixed obsessional thoughts and acts Other insomnia documented in this encounter Additional Health Concerns Assessment Noted Time PHQ-9 Depression Total Score: 3 10/24/19 23 11:00 AM EDT documented as of this encounter Care Teams Bottle And Glass Inspector Relationship Specialty Start Date End Date Geovanna Davis MD [address] [place] [address] [address] [place] [address] PCP - General Internal Medicine 08/16/20 Health, [facility] [address] [place] [address], [address] [place] [address] Tuber Machine Operator HelperCleaning Machine Operator Health 08/31/20 documented as of this encounter
--- OUTSIDE RECORDS SUMMARY | 2024-06-18 11:51 | XMS_ITS | Encounter Summary ---
Author Organization [facility] & [facility] Address [address] [place] [address] Care Team Providers Care Lacing String Cutter Name Role Phone Geovanna Davis MD Primary Care Provider + [phone] Reason for Visit * Reason Onset Date Comments [facility] Referral 08/25/2020 Encounter Details Date Type Department Care Team (Late st Contact Info) Description 08/25/2020 Telephone [facility] [address] [facility] [address] [place] [address] Mark Kumar [facility] Referral Social History Tobacco Use Types Packs/Day Years [...] Telephone Encounter - Mark Kumar - 08/25/2020 3:33 PM EST Telephone encounter was created to track [facility] referral submitted previously. No action is needed from the referring provider at this time. [facility] Lacing String Cutter documented in this encounter Plan of Treatment Not on file documented as of this encounter Visit Diagnoses Not on filedocumented in this encounter Additional Health Concerns Assessment Noted Time PHQ-9 Depression Total Score: 20 021 3:00 PM EST documented as of this encounter Care Teams Lacing String Cutter Relationship Specialty Start Date End Date Geovanna Davis MD [address] [address] PCP - General Internal Medicine 08/16/20 documented as of this encounter
--- OUTSIDE RECORDS SUMMARY | 2024-06-18 11:51 | XMS_ITS | Encounter Summary ---
Author Organization [facility] Address [address] [place] [address] Care Team Providers Care Director Online Marketing Name Role Phone Geovanna Davis MD Primary Care Provider + [phone] Health, Assignment Editor Behavioral [facility] + [phone] Encounter Details Date Type Department Care Team (Late st Contact Info) Description 09/06/2020 3:00 PM EST Telemedicine [facility] [address] [place] [id number] Selvin Gray, [facility] [address] [facility] [address] [place] [address] Current moderate episode of major depressive disorder without prior episode (CMS/HCC) (Primary Dx); OCD (obsessive compulsive disorder) Social History Tobacco Use Types Packs/Day Years Used Date Smoking Tobacco: Never Smokeless Tobacco: Never Alcohol Use Standard Drinks/Week Comments Yes 2 (1 standard drink = 0.6 oz pur e alcohol) PHQ-2 Answer Date Recorded PHQ-2 Total 1 09/20/2020 Comments No Sex and Gender Information Value Date Recorded Sex Assigned at Female 03/26/2022 11:03 AM EDT Legal Sex Female 5:33 PM EST Gender Identity Female 03/26/2022 11:03 AM EDT Sexual Orientation Straight 03/26/2022 11 :03 AM EDT documented as of this encounter Patient Instructions * Patient Instructions* Selvin Gray - 09/06/2020 3:00 PM EST Thank you for using [facility] ([facility]) Services today. I will: 1. Continue to use identified coping strategies to manage worries and stress (e.g. such such as Walking the dog, Socializing with friends, Physical activity). 2. Practice diaphragmatic breathing: Learning to relax your body is an important part of dealing with stress, anxiety, and pain. Relaxation can help you feel calm when you are upset, stressed, or nervous.Learning to relax can also help you to become more aware of your body. 3. Use my identified support system when feeling overwhelmed, worries, anxious or alone in my thoughts and feelings. 4. Continue to follow-through with medication compliance as prescribed by your PCP or psychiatrist. Goals Addressed This Visit's Progress ??? Anxiety On track I will increase my knowledge and skill [...] 3 well-balanced meals daily, including 1-2 snacks ??? Depression/Self-Care On track I will increase my knowledge and skill [...] for meditation, such as, The Calm nannette Your next appointment with a [facility] provider is scheduled for 09/20/2020 at 3:00 p.m. If you need to reschedule your next appointment with the [facility] team or have a mental health concern before your next scheduled appointment, please call [phone] or send us a message through [employer] for help. If you are thinking of hurting yourself or someone else, please call [phone] or walk in/contact the following places for immediate help. [facility] phone number: [phone]. If you need urgent assistance after regular business hours (Saturday-Saturday, 8:00am-5:00pm,) below are some locations for assistance. FOR URGENT NEEDS: [facility] [address] [place] [address] Saturday-, 8 a.m. - 8 p.m. Saturday, 8 a.m. - 3 p.m. Saturday, 8 a.m. - 1 p.m. [facility]? [address] [place] [address] Open 24 hours National Suicide Prevention Lifeline 4-555-470-TALK (1016) Crisis Text Line : text the word TALK to 319755 Mobile Crisis: documented in this encounter Progress Notes * Selvin Gray - 09/06/2020 3:00 PM EST [facility] Return Patient Assessment: 1. Current moderate episode of major depressive disorder without prior episode (CMS/HCC) 2. OCD (obsessive compulsive disorder) Clinical Impressions: Action: Jeannine is actively engaged in the current treatment plan as evidenced by symptom relief, increased patient motivation, medication management, consistent physical activity, increased social interaction and improved sleep hygiene. Triggering/maintaining factors continue to be: feeling overwhelmed, difficulty with consistent implementation, social isolation, environmental stressors and mood/behavior concerns. Screening measures indicate that Jeannine is experiencing Mild (5-9) depressive sxs(PHQ-9: 9) and Moderate (10-14) anxiety sxs (PRAVIN-7:10) at this time. No immediate safety concerns at this time. Jeannine denies active SI, HI, and self-harm at this time. Psychoeducation related to reported concerns and the following intervention strategies were reviewed by the provider: deep breathing, grounding techniques, identified and processed cognitive distortions, stress management, self-care tips and problem-solving, . Plan: [facility] will follow up for telemedicine support on 09/20/2020 at 3:00 p.m. to address symptoms of depression, anxiety, and OCD. I will: 1. Continue to use identified coping strategies to manage worries and stress (e.g. such such as Walking the dog, Socializing with friends, Physical activity). 2. Practice diaphragmatic breathing: Learning to relax your body is an important part of dealing with stress, anxiety, and pain. Relaxation can help you feel calm when you are upset, stressed, or nervous.Learning to relax can also help you to become more aware of your body. 3. Use my identified support system when feeling overwhelmed, worries, anxious or alone in my thoughts and feelings. 4. Continue to follow-through with medication compliance as prescribed by your PCP or psychiatrist. Goals Addressed This Visit's Progress ??? Anxiety On track I will increase my knowledge and skill [...] 3 well-balanced meals daily, including 1-2 snacks ??? Depression/Self-Care On track I will increase my knowledge and skill [...] for meditation, such as, The Calm nannette If you are thinking of hurting yourself or someone else, please call 911 or walk in/contact the following places for immediate help. [facility] phone number: [phone]. [facility] [address] [place] [address] [facility] [address] [place] [address] National Suicide Prevention Lifeline 7-288-805-TALK (3902) Crisis Text Line : text the word TALK to 122928 Mobile Crisis: Session Time: 45 minutes Subjective: Telemedicine Statement This visit was conducted from [facility] in [place], [place] via secure, live, [id number] video conference with the patient. Jeannine was located at their home in [place], with self present, who contributed pertinent information for this session. Overview of virtual behavioral health services and limits of confidentiality were discussed with the patient. Visit was conducted in Ghanaian per patient preference. Current progress since last visit: Identified problem: Depression ??? Since last seen, depressed mood has improved. ??? Associated symptoms: o Difficulty experiencing pleasure (anhedonia): yes o Low motivation: yes o Difficulty concentrating: yes o Sleep problems: yes o Appetite problems: yes o Changes in energy: yes o Psychomotor activity: no o Guilty thoughts or feelings: yes o Suicidal thoughts: no ??? Factors that Jeannine feels are helping to improve depression: medication, exercise, spending time with friends/family, improving sleep habits, therapy, setting and meeting personal goals, scheduling pleasurable activities and coping strategies (breathing exercises, talking with a trusted support) ??? Stressors that are likely contributing to depression: social isolation/loneliness, romantic break-up and trauma memories ??? Changes in medication since last seen: yes o If yes, response to medication changes: symptoms are improving ??? Additional updates: Pt. States that her medication was increased by 5mg, for a total of 20mg ofLexapro every day. Pt. states that she ended a toxic relationship that she was engaged in. Pt. endorses feelings of sadness, but states that she has improved. Pt. states that she is focusing on her individual happines, including planning activities of leisure, physical activity, and spending time with others. Pt. endorses continued poor sleep hygiene, stating that her PCP prescribed hydroxazine for sleep support. Pt. endorses a continued low appetite. Pt. states that she has an appointment withDaniel Mcclelland in September 2020 and would like to continue engaging in [facility] services until bridged with [facility]. PHQ-9 Score: 9; Risk Category: Mild (5-9) Suicidal ideation: Not at all Reported impairment: Somewhat difficult Identified problem: Anxiety ??? Since last seen, anxiety symptoms have improved. 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 ??? Associated symptoms: o Worrying more days than not: yes o Difficulty controlling worry: yes o Difficulty concentrating: yes o Difficulty sleeping: yes o Feeling physically restless: yes o Getting tired easily: yes o Muscle tension: yes o Feeling tense, easily upset, or annoyed: yes o Panic attacks: no ??? Factors that Jeannine feels are helping to improve anxiety: medication, exercise, spending time with friends/family, improving sleep habits, therapy, setting and meeting personal goals, scheduling pleasurable activities and coping strategies (breathing exercises, talking with a trusted support) ??? Stressors that are likely contributing to anxiety: social isolation/loneliness, romantic break-up and trauma memories ??? Changes in medication since last seen: yes o If yes, response to medication changes: symptoms are improving ??? Additional updates: Pt. states that she followed through with the therapeutic activity of looking through old pictures to make a list of qualities that the patient would like to redeem within herself and that it was a positive exercise. Pt. states that she plans to use post-it notes to provide daily reminders and exercises that will help her to move toward her therapeutic goals. PRAVIN-7 Total: 10 Risk Category: Moderate (10-14) Reported impairment: Somewhat difficult Objective: Mental Status and Behavioral Observations: Jeannine was oriented x 3. Memory for personal history seemed intact. Mood and attitude toward the session was positive and open. Fund of knowledge was not formally assessed, but appeared age appropriate. No concerns with hallucinations, delusions, or otherwise compromised thought activity was noted. Judgment and insight were within normal limits. No concerns with attention or concentration. Her speech was within normal limits. documented in this encounter Plan of Treatment Not on file documented as of this encounter Goals Goal Patient Goal Type Associated Problems Recent Progress Patient-Stated? Author Depression/Self-C are Care Management On track(2020 3:24 PM EDT) Selvin Melo, [facility] Note: I will increase my knowledge [...] On track(2020 3:24 PM EDT) Selvin Melo, [facility] Note: I will increase my knowledge [...] depressive disorder without prior episode (CMS/HCC)- Primary OCD (obsessive compulsive disorder) Obsessive-compulsive disorders documented in this encounter Additional Health Concerns Assessment Noted Time PHQ-9 Depression Total Score: 9 09/07/19 21 2:47 PM EST documented as of this encounter Care Teams Director Online Marketing Relationship Specialty Start Date End Date Geovanna Davis MD [address] [facility] [address] [place] [address] PCP - General Internal Medicine 08/16/20 [facility], Virtual Behavioral [address] [facility], [address] [place] [address] [employer] InspectorDrill Press Operator For [employer] 08/31/20 documented as of this encounter
--- OUTSIDE RECORDS SUMMARY | 2024-06-18 11:51 | XMS_ITS | Encounter Summary ---
Author Organization [facility] Address [address] [place] [address] Care Team Providers Care Business Administration Program Chair Name Role Phone Geovanna Davis MD Primary Care Provider + [phone] Health, [facility] Behavioral Unavailable + [phone] Reason for Visit * Reason Comments Anxiety Needs a Little More Help Managin/ requesting dose change Insomnia Encounter Details Date Type Department Care Team (Late st Contact Info) Description 02/28/2021 4:15 PM EDT Telemedicine [facility] [place] [address] Geovanna Davis MD [address] [facility] [address] [place] [address] Anxiety (Primary Dx); Current moderate episode of major depressive disorder without prior episode (CMS/HCC); Mixed obsessional thoughts and acts; Other insomnia Social History Tobacco Use Types Packs/Day Years Used Date Smoking Tobacco: Never Smokeless Tobacco: Never Alcohol Use Standard Drinks/Week Comments Yes 2 (1 standard drink = 0.6 oz pur e alcohol) PHQ-2 Answer Date Recorded PHQ-2 Total 4 02/28/2021 Comments No Sex and Gender Information Value Date Recorded Sex Assigned at Female 03/26/2022 11:03 AM EDT Legal Sex Female 5:33 PM EST Gender Identity Female 03/26/2022 11:03 AM EDT Sexual Orientation Straight 03/26/2022 11 :03 AM EDT documented as of this encounter Last Filed Vital Signs Vital Sign Reading Time Taken Comments Blood Pressure - - Pulse 80 02/28/2021 4:16 PM EDT Laurae nt Obtained Temperature - - Respiratory Rate - - Oxygen Saturation - - Inhaled Oxygen Concentration - - Weight 61.2 kg (135 lb) 02/28/2021 4:16 PM EDT P atient Obtained Height 170.2 cm (5' 7 ) 02/28/2021 4:16 PM EDT Body Mass Index 21.14 02/28/2021 4:16 PM EDT documented in this encounter Functional Status * Over the last 2 weeks, how often have you been bothered by any of the following problems? Question Answer Date of Assessment Author PRAVIN-7 Total Score 12 02/28/2021 4:20 PM EDT Background, Mychart * Feeling nervous, anxious, or on edge Answer Date of Assessment Author 2 02/28/2021 4:20 PM EDT Backgroun d, Mychart * Not being able to stop or control worrying Answer Date of Assessment Author 2 02/28/2021 4:20 PM EDT Backgroun d, Mychart * Worrying too much about different things Answer Date of Assessment Author 2 02/28/2021 4:20 PM EDT Backgroun d, Mychart * Trouble relaxing Answer Date of Assessment Author 3 02/28/2021 4:20 PM EDT Backgroun d, Mychart * Being so restless that it is hard to sit still Answer Date of Assessment Author 1 02/28/2021 4:20 PM EDT Backgroun d, Mychart * Becoming easily annoyed or irritable Answer Date of Assessment Author 1 02/28/2021 4:20 PM EDT Backgroun d, Mychart * Feeling afraid as if something awful might happen Answer Date of Assessment Author 1 02/28/2021 4:20 PM EDT Backgroun d, Mychart documented as of this encounter Progress Notes * Geovanna Davis MD - 02/28/2021 6:41 PM EDTAssociated Problem(s): Anxiety Reviewed hx, sx, [...] the hydroxyzine as needed for anxiety and insomnia.I advised her to use this with caution as she starts the Lyrica in case the Lyrica also causes somesedation. She was advised to schedule a short-term follow-up appointment. We also discussed possibility of changing Lexapro to sertraline or paroxetine but she declined thisoption for now. * Geovanna Davis MD - 02/28/2021 4:15 PM EDT Subjective: VIDEO VISIT I conducted this encounter via secure, live Video Visit with the patient. I confirmed the patient'sname and date of . He/She was located at home in [place], with the patient only and theprovider only [...] a 26 y.o. female. Date of Service: 02/28/21 Is this a CM Visit?: (!) Yes Chief Complaint: Chief Complaint Patient presents with ??? Anxiety Needs a Little More Help Managin/ requesting dose change ??? Insomnia History of Present Illness: DATE OF LAST PHYSICAL, CPE, WWE, AWV: LAST VISIT 10/24/2020 TODAY: Reports increasing anxiety, depression Not sleeping Current [...] at all Reported impairment: (P) Somewhat difficult 10/24/2020: She is seeing therapist through regularly Had side effects with Wellbutrin in 08/2020. This rx was stopped and her symptoms/side effects resolved. Due to persistent anxiety, Lexapro was increased from 10 mg to 20 mg. She takes Lexapro in AM. She reports she is doing well with the increased dose of Lexapro She feels so exhausted but can't fall asleep or stay asleep Dos not seem related to caffeine Some night sweats. Not sure if this is related to her IUD? She notes this sx 3 nights per week. Notdrenching night clothes but she will feel that sx do make the sheets damp, sometime more than once per night. Sx have been ongoing for the last 6 months She notes that she was using hydroxyzine for sleep and it was helping. She would fall asleep fasterand stay asleep. Planning to return to [place] (home) in summer. 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 Routine general medical examination at a health care facility ??? Anxiety ??? Current moderate episode of major depressive disorder without prior episode (CMS/HCC) ??? OCD (obsessive compulsive disorder) ??? Pain of finger of right hand ??? Other insomnia Past Medical History: Diagnosis Date ??? Anxiety ??? Depression ??? OCD (obsessive compulsive disorder) ??? Peptic ulceration when taking NSAIDS at high doses gastric ulcer diagnosed last year Past Surgical History: Procedure Laterality Date ??? FRACTURE SURGERY nose broken ~6y ago ??? WISDOM TOOTH EXTRACTION 2020 Family History Problem Relation Age of Onset ??? Hypothyroidism Mother ??? Hypertension Mother ??? Hypertension Father ??? Fibromyalgia Maternal Grandmother ??? Hyperlipidemia Maternal Grandmother ??? Hypertension Maternal Grandmother ??? Kidney disease Maternal Grandmother ??? COPD Maternal Grandmother ??? Diabetes Maternal Grandmother ??? Depression Sister Social History Socioeconomic History ??? Marital status: Single Spouse name: Not on file ??? Number of children: Not on file ??? Years of education: Not on file ??? Highest education level: Not on file Occupational History ??? Not on file Tobacco Use ??? Smoking status: Never Smoker ??? Smokeless tobacco: Never Used Vaping Use ??? Vaping Use: Never used Substance and Sexual Activity ??? Alcohol use: Yes Alcohol/week: 2.0 standard drinks Types: 2 Glasses of wine per week ??? Drug use: Never ??? Sexual activity: Yes Partners: Male control/protection: Implant Other Topics Concern ??? Not on file Social History Narrative ??? Not on file Social Determinants of Health Financial Resource Strain: ??? Difficulty of Paying Living Expenses: Food Insecurity: ??? Worried About Running Out of Food in the Last Year: ??? Ran Out of Food in the Last Year: Transportation Needs: ??? Lack of Transportation (Medical): ??? Lack of Transportation (Non-Medical): Physical Activity: ??? Days of Exercise per Week: ??? Minutes of Exercise per Session: Stress: ??? Feeling of Stress : Social Connections: ??? Frequency of Communication with Friends and Family: ??? Frequency of Social Gatherings with Friends and Family: ??? Attends Denominational Services: ??? Active Member of Clubs or Organizations: ??? Attends Club or Organization Meetings: ??? Marital Status: Intimate Partner Violence: ??? Fear of Current or Ex-Partner: ??? Emotionally Abused: ??? Physically Abused: ??? Sexually Abused: Outpatient Medications Prior to Visit Medication Sig Dispense Refill ??? escitalopram oxalate (LEXAPRO) 20 MG tablet Take 1 tablet (20 mg total) by mouth daily. 30 tablet 5 ??? hydrOXYzine (ATARAX) 50 MG tablet Take 1 tablet (50 mg total) by mouth nightly as needed (for sleep). (Patient taking differently: Take 50 mg by mouth nightly as needed (for sleep). Pt has been taking 100mg ) 30 tablet 5 ??? SRONYX 0.1-20 mg-mcg per tablet Take 1 tablet by mouth daily. No facility-administered medications prior to visit. The following portions of the patient's history were reviewed and updated as appropriate: medications, allergies, past medical history, family history, social history, surgical history, current problems. All of the patient's ROS was normal except as documented in the HPI. Review of Systems: All systems reviewed and negative unless previously mentioned in the HPI. ROS Objective: Pulse 80 Comment: Patient Obtained Ht 1.702 m (5' 7 ) Wt 61.2 kg (135 lb) Comment: Patient Obtained LMP 02/07/2021 BMI 21.14 kg/m?? Physical Exam: Gen: alert and oriented, [...] the hydroxyzine as needed for anxiety and insomnia.I advised her to use this with caution as she starts the Lyrica in case the Lyrica also causes somesedation. She was advised to schedule a short-term follow-up appointment. We also discussed possibility of changing Lexapro to sertraline or paroxetine but she declined thisoption for now. Relevant Medications escitalopram oxalate (LEXAPRO) 20 MG tablet Current moderate episode of major depressive disorder without prior episode (CMS/HCC) Relevant Medications escitalopram oxalate (LEXAPRO) 20 MG tablet OCD (obsessive compulsive disorder) Relevant Medications escitalopram oxalate (LEXAPRO) 20 MG tablet Other insomnia Relevant Medications hydrOXYzine (ATARAX) 50 MG tablet Medications Ordered This Encounter Medications ??? pregabalin (LYRICA) 25 MG capsule Sig: Take 1 capsule (25 mg total) by mouth 2 (two) times a day. Dispense: 60 capsule Refill: 2 ??? escitalopram oxalate (LEXAPRO) 20 MG tablet Sig: Take 1 tablet (20 mg total) by mouth daily. Dispense: 30 tablet Refill: 5 ??? hydrOXYzine (ATARAX) 50 MG tablet Si-2 tab by mouth at bedtime as needed Dispense: 60 tablet Refill: 1 Medications Discontinued During This Encounter Medication Reason ??? SRONYX 0.1-20 mg-mcg per tablet Patient Reports Not taking ??? hydrOXYzine (ATARAX) 50 MG tablet Reorder ??? escitalopram oxalate (LEXAPRO) 20 MG tablet Reorder I spent 15 minutes face to face with the patient, providing patient care, education, and counseling. Follow-Up: Return in about 3 years (around 02/29/2024) for Depression/anxiety follow up PRAVIN- 7, PHQ-9. Patient Goals: Goals ??? Anxiety I will increase my knowledge and [...] meals daily, including 1-2 snacks ??? Depression/Self-Care I will increase my knowledge and [...] On track(2020 3:24 PM EDT) Selvin Melo [facility] Note: I will increase my [...] On track(2020 3:24 PM EDT) Selvin Melo, [facility] Note: I will increase my [...] Noted Time PHQ-9 Depression Total Score: 8 10/25/19 21 2:00 PM EDT documented as of this encounter Care Teams Business Administration Program Chair Relationship Specialty Start Date End Date Geovanna Davis MD [address] [place] [address] [address] [place] [address] PCP - General Internal Medicine 08/16/20 Health, [facility] [address] [place] [address], [address] [place] [address] Bail BondsmanManager Revenue Health 08/31/20 documented as of this encounter
--- OUTSIDE RECORDS SUMMARY | 2024-06-18 11:51 | XMS_ITS | Encounter Summary ---
Author Organization [facility]ly [facility] Address [address] [place] [address] Care Team Providers Care Medical File Clerk Name Role Phone Geovanna Davis MD Primary Care Provider + [phone] Health, [facility] Behavior[facility] Unavailable + [phone] Encounter Details Date Type Department Care Team (Late st Contact Info) Description 07/04/2023 Orders Only [facility] Primary Care-[address] [place] [address] Geovanna Davis MD [address] [facility] [address] [place] [phone] Anxiety Social History Tobacco Use Types Packs/Day Years [...] track(2020 3:24 PM EDT) No Selvin Gray [facility] Note: I will increase my knowledge [...] On track(2020 3:24 PM EDT) Selvin Melo, [facility] Note: I will increase my knowledge [...] as of this encounter Visit Diagnoses Diagnosis Anxiety Anxiety state, unspecified documented in this encounter Additional Health Concerns Assessment Noted Time PHQ-9 Depression Total Score: 2 04/09/20 23 10:00 AM EDT documented as of this encounter Care Teams Medical File Clerk Relationship Specialty Start Date End Date Geovanna Davis MD [address] [facility] [address] [place] [address] PCP - General Internal Medicine 08/16/20 Health, [facility] [address] [facility], [address] [place] [address] Civil Engineering TechnicianProduction Graphic Designer Health 08/31/20 documented as of this encounter
--- OUTSIDE RECORDS SUMMARY | 2024-06-18 11:51 | XMS_ITS | Encounter Summary ---
Author Organization [facility] & [facility] Address [address] [place] [address] Care Team Providers Care Front Desk Agent Name Role Phone Unavailable Primary Care Provider Unavailabl e Encounter Details Date Type Department Care Team (Latest Contact Info) Description 05/20/2017 5:43 PM EST - 05/20/2017 11:59 PM EST Hospital Encounter [facility] Outreach [address] [place] [address] Antonio Perez MD [address] [facility] [address] [place] [address] Discharge Disposition: Home or Self Care Social History Tobacco Use Types Packs/Day Years Used Date Smoking Tobacco: Never Assessed Comments Unknown Sex and Gender Information Value Date Recorded Sex Assigned at Female 03/26/2022 11:03 AM EDT Legal Sex Female 5:33 PM EST Gender Identity Female 03/26/2022 11:03 AM EDT Sexual Orientation Straight 03/26/2022 11 :03 AM EDT documented as of this encounter Medications at Time of Discharge Medication Sig Dispense Quantity Refills Last Filled Start D ate End Date GENERIC CONTROL, SPECIFIC, 2020 documented as of this encounter Plan of Treatment Not on file documented as of this encounter Procedures Procedure Name Priority Date/Time Associated Diagnosis Comments GYNECOLOGICAL SPECIMEN Routine 7 12:00 AM EST documented in this encounter Results * Gynecological Specimen (05/20/2017 12:00 AM EST) Gynecologic Cytology ?Final Outreach Gynecologic Cytopathology Report PATIENT ?ANIA WESLEY ?ACCESSION # ?[id number] ?PROCEDURE DATE ?? 05/20/2017 ?1995 ? RECEIPT DATE ? 05/20/2017 ??17:44 AGE / SEX ??22 Y / F ? REPORTED DATE ?05/22/2017 ??11:38 LOCATION ?? [address] Outreach ?PROVIDER(S) ?ANTONIO PEREZ MD CLIENT ID: [facility] OUTREACH #: 0 CHART #: [id number] Clinical History: Specimen: ?? THINPREP IMAGED PAP TEST WITH HPV REFLEX, CERVICAL/ENDOCERVI CARLENE CYTOLOGIC DIAGNOSIS Satisfactory for evaluation. NEGATIVE FOR INTRAEPITHELIAL LESION OR MALIGNANCY ELECTRONICALLY SIGNED BY SUMAYA GUDINO(ASCP) NOTE: ??The Pap test is a screening test designed to aid in the detection of premalignant and malignant conditions of the uterine cervix. ??It should not be used as the sole means of detecting cervical cancer. ??Both false positive and false negative results occur. Performing Lab (unless otherwise specified): ??[place], [place] ??[address] [facility] Category: NEG for DEBBY [facility] 05/20/2017 05/20/2017 5:4 4 PM EST us Antonio Perez MD PATHOLOGY/CYTOLOGY CARLY ALDRICH Final Result [facility] documented in this encounter Visit Diagnoses Not on filedocumented in this encounter
--- OUTSIDE RECORDS SUMMARY | 2024-06-18 11:51 | XMS_ITS | Encounter Summary ---
Author Organization [facility] & [facility] Address [address] [place] [address] Care Team Providers Care Lapping Machine Operator Name Role Phone Geovanna Davis MD Primary Care Provider + [phone] Health, Virtual Behavioral Unavailable + [phone] Encounter Details Date Type Department Care Team (Latest Contact Info) Description 09/17/2023 1:16 PM EDT - 09/17/2023 11:59 PM EDT Hospital Encounter [facility] Outreach [address] [place] [address] Antonio Perez MD [address] [facility] [address] [place] [address] Discharge Disposition: Home or Self Care Social [...] this encounter Medications at Time of Discharge levonorgestrel (KYLEENA) 17.5 mcg/24 hr (5 years) IUD 1 Intra Uterine Device by Intrauterine route once. buspirone (BUSPAR) 10 MG tabletIndication s:Anxiety Take 1 tablet (10 mg total) by mouth nightly. 90 tablet 1 04/11/2023 4 escitalopram oxalate (LEXAPRO) 20 MG tabletIndication s:Anxiety Take 1 tablet (20 mg total) by mouth daily. 90 tablet 1 04/09/2023 4 hydrOXYzine (ATARAX) 50 MG tabletIndication s:Other insomnia Take 3 tablets (150 mg total) by mouth nightly as needed. 270 tablet 1 04/09/2023 4 pregabalin (LYRICA) 25 MG capsuleIndicatio ns:Anxiety Take 2 capsules (50 mg total) by mouth daily. 180 capsule 07/04/2023 4 documented as of this encounter Plan of [...] Name Priority Date/Time Associated Diagnosis Comments PAP WITH HPV REFLEX Routine 09/17/2023 1 1:40 AM EDT documented in this encounter Results * Pap with HPV Reflex (09/17/2023 11:40 AM EDT) Pap with HPV Reflex Final Outreach Gynecologic Cytopathology Report PATIENT ? ANIA WESLEY ?ACCESSION # ? [id number] [facility] ? [id number] ?PROCEDURE DATE ??09/17/2023 11:40 ? 1995 ? RECEIPT DATE ?09/18/2023 19:19 AGE / SEX ? 28 Y / F ? REPORTED DATE ?? 09/20/2023 15:05 LOCATION ?[address] [place] [address] Outreach ?PROVIDER(S) ? ANTONIO PEREZ MD CLIENT ID: [facility] OUTREACH #: 0 CHART #: [id number] [facility] REC #: [id number] Clinical History: ??LMP: No LMP provided Specimen: A. THINPREP IMAGED PAP TEST WITH HPV REFLEX CERVICAL/ENDOCERVI CARLENE CYTOLOGIC DIAGNOSIS: Satisfactory for evaluation. Scant cellularity NEGATIVE FOR INTRAEPITHELIAL LESION OR MALIGNANCY As a quality facilitator measure this specimen was rescreened by a second technologist. ELECTRONICALLY SIGNED BY: SUMAYA Carey (ASCP) NOTE: The Pap test is a screening test designed to aid in the detection of premalignant and malignant conditions of the uterine cervix. ??It should not be used as the sole means of detecting cervical cancer. ??Both false positive and false negative results occur. Performing Lab (unless otherwise specified): ??[place], [place] ??[address] [facility] Category: FISH BAILER - NEGATIVE FOR INTRAEPIT LESION [facility] 09/17/2023 11:4 0 AM EDT 09/18/2023 7:19 PM EDT us Antonio Perez MD PATHOLOGY/CYTOLOGY CARLY ALDRICH Final Result [facility] documented in this encounter Visit Diagnoses Not on filedocumented in this encounter Additional Health Concerns Assessment Noted Time PHQ-9 Depression Total Score: 2 04/09/20 23 10:00 AM EDT documented as of this encounter Care Teams Lapping Machine Operator Relationship Specialty Start Date End Date Geovanna Davis MD [address] [place] [address] [address] [place] [phone] PCP - General Internal Medicine 08/16/20 Health, Virtual Behavioral [address] [facility], [address] [place] [address] Extractions TechnologistFirer Tunnel Kiln Health 08/31/20 documented as of this encounter
--- OUTSIDE RECORDS SUMMARY | 2024-06-18 11:51 | XMS_ITS | Encounter Summary ---
Author Organization [facility] Address [address] [place] [address] Care Team Providers Care Market Development Trainer Name Role Phone Unavailable Primary Care Provider Unavailabl e Encounter Details Date Type Department Care Team (Latest Contact Info) Description 07/15/2019 9:45 PM EST - 07/15/2019 11:59 PM EST Hospital Encounter [facility] Outreach [address] [place] [address] Antonio Perez MD [address] [facility] [address] [place] [address] Discharge Disposition: Home or Self Care Social [...] Date/Time Associated Diagnosis Comments GYNECOLOGICAL SPECIMEN Routine 0 12:00 AM EST documented in this encounter Results * Gynecological Specimen (07/15/2019 12:00 AM EST) Gynecologic Cytology ?Final Outreach Gynecologic Cytopathology Report PATIENT ?ANIA WESLEY ?ACCESSION # ?[id number] ?PROCEDURE DATE ?? 07/15/2019 ?1995 ? RECEIPT DATE ? 07/15/2019 ??23:20 AGE / SEX ??24 Y / F ? REPORTED DATE ?07/16/2019 ??15:33 LOCATION ?? [address] Outreach ?PROVIDER(S) ?ANTONIO PEREZ MD CLIENT ID: [facility] OUTREACH #: 0 CHART #: [id number] Clinical History: LMP: 07/13/2019 Specimen: ?? THINPREP [...] results occur. Performing Lab (unless otherwise specified): ??[place], [place] ??[address] [facility] Category: NEG for DEBBY [facility] 07/15/2019 07/15/2019 11: 20 PM EST us Antonio Perez MD PATHOLOGY/CYTOLOGY CARLY ALDRICH Final Result [facility] documented in this encounter Visit Diagnoses Not on filedocumented in this encounter
--- OUTSIDE RECORDS SUMMARY | 2024-06-18 11:51 | XMS_ITS | Encounter Summary ---
Author Organization [facility] Address [address] [place] [address] Care Team Providers Care Principal Accounts Clerk Name Role Phone Geovanna Davis MD Primary Care Provider + [phone] Health, Virtual Behavioral Unavailable + [phone] Reason for Visit * Reason Comments Anxiety Medication Refill Insomnia Wants to sleep all d ay but can't fall asleep at night Fatigue Due to Lack of sleep Encounter Details Date Type Department Care Team (Late st Contact Info) Description 10/24/2020 1:15 PM EDT Office Visit [facility] [place] [address] Geovanna Davis MD [address] [facility] [address] [place] [address] Anxiety (Primary Dx); Current moderate episode of major depressive disorder without prior episode (CMS/HCC); Mixed obsessional thoughts and acts; Other insomnia Social History Tobacco Use Types Packs/Day Years Used Date Smoking Tobacco: Never Smokeless Tobacco: Never Alcohol Use Standard Drinks/Week Comments Yes 2 (1 standard drink = 0.6 oz pur e alcohol) PHQ-2 Answer Date Recorded PHQ-2 Total 0 10/24/2020 Comments No Sex and Gender Information Value Date Recorded Sex Assigned at Female 03/26/2022 11:03 AM EDT Legal Sex Female 5:33 PM EST Gender Identity Female 03/26/2022 11:03 AM EDT Sexual Orientation Straight 03/26/2022 11 :03 AM EDT documented as of this encounter Last Filed Vital Signs Vital Sign Reading Time Taken Comments Blood Pressure 116/68 10/24/2020 1:19 PM EDT Pulse 99 10/24/2020 1:19 PM EDT Temperature 36.6 ??C (97.9 ??F) 10/24/2020 1:19 PM ED T Respiratory Rate 14 10/24/2020 1:19 PM EDT Oxygen Saturation 99% 10/24/2020 1:19 PM EDT Inhaled Oxygen Concentration - - Weight 65.2 kg (143 lb 11.8 oz) 10/24/2020 1:19 PM EDT Height 172 cm (5' 7.72 ) 10/24/2020 1:19 PM EDT Body Mass Index 22.04 10/24/2020 1:19 PM EDT documented in this encounter Functional Status * Over the last 2 weeks, how often have you been bothered by any of the following problems? Question Answer Date of Assessment Author Feeling nervous, anxious, or on edge 0 10/24/2020 2:00 PM EDT Christina Rowe MA Not being able to stop or control worrying 1 10/24/2020 2:00 PM EDT Christina Rowe MA Worrying too much about different things 1 10/24/2020 2:00 PM EDT Christina Rwoe MA Trouble relaxing 1 10/24/2020 2:00 PM EDT Christina Villegas MA Being so restless that it is hard to sit still 0 10/24/2020 2:00 PM EDT Christina Rowe MA Becoming easily annoyed or irritable 1 10/24/2020 2:00 PM EDT Christina Rowe MA Feeling afraid as if somethi ng awful might happen 0 10/24/2020 2:00 PM EDT Christina Rowe MA PRAVIN-7 Total Score 4 10/24/2020 2:00 PM EDT Christina Rowe MA documented as of this encounter Progress Notes * Geovanna Davis MD - 10/24/2020 5:52 PM EDTAssociated Problem(s): Other insomnia Reviewed hx,sx. She reports that she as given hydroxyzine 50mg dose for anxiety but does not needs as much for this, however, she noted that it did help her with sleep. She continues to have problemsfalling asleep and staying asleep. Reviewed sleep hygiene. OK to renew hydroxyzine. * Geovanna Davis MD - 10/24/2020 5:51 PM EDTAssociated Problem(s): Anxiety She is reporting improvement and control of symptoms with current rx. All s/e from rx Wellbutrin have resolved. Continue rx. No noted s/e. We agreed to follow up at 6 months but she will notify office if she has concerns in the meantime. * Geovanna Davis MD - 10/24/2020 1:15 PM EDT Subjective: Patient ID: Ania Wesley is a 25 y.o. female. Date of Service: 10/24/20 Is this a CM Visit?: No Chief Complaint: Chief Complaint Patient presents with ??? Anxiety ??? Medication Refill ??? Insomnia Wants to sleep all day but can't fall asleep at night ??? Fatigue Due to Lack of sleep History of Present Illness: Follow up anxiety She is seeing therapist through regularly Had side effects with Wellbutrin in 08/2020. This rx was stopped and her symptoms/side effects resolved. Due to persistent anxiety, Lexapro was increased from 10 mg to 20 mg. She takes Lexapro in AM. Here for follow up She reports she is doing well with [...] fasterand stay asleep. Planning to return to [place] (home) in summer. 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 Anxiety ??? OCD (obsessive compulsive disorder) Past Surgical History: Procedure Laterality Date ??? WISDOM TOOTH EXTRACTION 2020 Family History Problem Relation Age of Onset ??? Hypothyroidism Mother ??? Hypertension Mother ??? Hypertension Father ??? Fibromyalgia Maternal Grandmother ??? Hyperlipidemia Maternal Grandmother ??? Hypertension Maternal Grandmother ??? Kidney disease Maternal Grandmother Social History Socioeconomic History ??? Marital status: [...] ??? Sexual activity: Yes Partners: Male control/protection: OCP Other Topics Concern ??? Not on file [...] Gatherings with Friends and Family: ??? Attends Worship Services: ??? Active Member of Clubs or Organizations: ??? Attends Club or Organization Meetings: ??? Marital Status: Intimate Partner Violence: ??? Fear of Current or Ex-Partner: ??? Emotionally Abused: ??? Physically Abused: ??? Sexually Abused: Outpatient Medications Prior to Visit Medication Sig Dispense Refill ??? SRONYX 0.1-20 mg-mcg per tablet Take 1 tablet by mouth daily. ??? escitalopram oxalate (LEXAPRO) 20 MG tablet TAKE 1 TABLET BY MOUTH EVERY DAY 30 tablet 0 No facility-administered medications prior to visit. The following portions of the patient's history were reviewed and updated as appropriate: medications, allergies, past medical history, family history, social history, surgical history, current problems. All of the patient's ROS was normal except as documented in the HPI. Review of Systems: All systems reviewed and negative unless previously mentioned in the HPI. ROS Objective: BP 116/68 (BP Location: Left upper arm, BP Position: Sitting, Cuff Size: Adult ([place] Blue)) Pulse99 Temp 97.9 ??F (36.6 ??C) (Oral) Resp 14 Ht 1.72 m (5' 7.72 ) Wt 65.2 kg (143 lb 11.8 oz) LMP 10/03/2020 (Approximate) SpO2 99% BMI 22.04 kg/m?? BP Readings from Last 2 Encounters: 10/24/20 116/68 09/01/20 114/72 Wt Readings from Last 1 Encounters: 10/24/20 65.2 kg (143 lb 11.8 oz) Physical Exam: Constitutional: General Appearance: No acute distress, well appearing, and well nourished. Psychiatric: Orientation to person, place and time: Normal. Mood and affect: Normal Other: Results for orders placed or performed during the hospital encounter of 07/15/19 Gynecological Specimen Result Value Ref Range Gynecologic Cytology Final Outreach Gynecologic Cytopathology Report PATIENT ANIA WESLEY PROCEDURE DATE 07/15/2019 1995 RECEIPT DATE 07/15/2019 23:20 AGE / SEX 24 Y / F REPORTED DATE 07/16/2019 15:33 LOCATION [address] [place] Outreach PROVIDER(S) ANTONIO PEREZ MD CLIENT ID: [facility] #: 0 CHART #: [id number] Clinical History: LMP: 07/13/2019 Specimen: THINPREP IMAGED PAP TEST WITH HPV REFLEX, CERVICAL/ENDOCERVICAL CYTOLOGIC DIAGNOSIS Satisfactory for evaluation. NEGATIVE FOR INTRAEPITHELIAL LESION OR MALIGNANCY ELECTRONICALLY SIGNED BY [employer] NOTE: The Pap test is a screening test designed to aid in the detection of premalignant and malignant conditions of the uterine cervix. It should not be used as the sole means of detecting cervical cancer. Both false positive and false negative results occur. Performing Lab (unless otherwise specified): [place], [place] [address] [place] [address] [facility] Category: NEG for DEBBY No visits with results within 3 Month(s) from this visit. Latest known visit with results is: Hospital Outpatient Visit on 07/15/2019 Component Date Value ??? Gynecologic Cytology 07/15/2019 Value: Final Outreach Gynecologic Cytopathology Report PATIENT ANIA WESLEY N [id number] PROCEDURE DATE 07/15/2019 1995 RECEIPT DATE 07/15/2019 23:20 AGE / SEX 24 Y / F REPORTED DATE 07/16/2019 15:33 LOCATION [address] [facility] PROVIDER(S) ANTONIO PEREZ MD CLIENT ID: [facility] #: 0 CHART #: [id number] Clinical History: LMP: 07/13/2019 Specimen: THINPREP IMAGED PAP TEST WITH HPV REFLEX, CERVICAL/ENDOCERVICAL CYTOLOGIC DIAGNOSIS Satisfactory for evaluation. NEGATIVE FOR INTRAEPITHELIAL LESION OR MALIGNANCY ELECTRONICALLY SIGNED BY [employer] NOTE: The Pap test is a screening test designed to aid in the detection of premalignant and malignant conditions of the uterine cervix. It should not be used as the sole means of detecting cervical cancer. Both false positive and false negative results occur. Performing Lab (unless otherwise specified): [place] [address] [facility] Category: NEG for DEBBY Assessment and Plan: 1. Anxiety 2. Current moderate episode of major depressive disorder without prior episode (CMS/HCC) 3. Mixed obsessional thoughts and acts 4. Other insomnia Problem List Items Addressed This Visit Anxiety - Primary She is reporting improvement and control of symptoms with current rx. All s/e from rx Wellbutrin have resolved. Continue rx. No noted s/e. We agreed to follow up at 6 months but she will notify office if she has concerns in the meantime. Relevant Medications escitalopram oxalate (LEXAPRO) 20 MG tablet Current moderate episode of major depressive disorder without prior episode (CMS/HCC) Relevant Medications escitalopram oxalate (LEXAPRO) 20 MG tablet OCD (obsessive compulsive disorder) Relevant Medications escitalopram oxalate (LEXAPRO) 20 MG tablet Other insomnia Reviewed hx,sx. She reports that she as given hydroxyzine 50mg dose for anxiety but does not needs as much for this, however, she noted that it did help her with sleep. She continues to have problemsfalling asleep and staying asleep. Reviewed sleep hygiene. OK to renew hydroxyzine. Relevant Medications hydrOXYzine (ATARAX) 50 MG tablet Requested Prescriptions Signed Prescriptions Disp Refills ??? hydrOXYzine (ATARAX) 50 MG tablet 30 tablet 5 Sig: Take 1 tablet (50 mg total) by mouth nightly as needed (for sleep). ??? escitalopram oxalate (LEXAPRO) 20 MG tablet 30 tablet 5 Sig: Take 1 tablet (20 mg total) by mouth daily. Follow-Up: Return in about 6 months (around 04/25/2021) for Depression/anxiety follow up PRAVIN-7, PHQ-9. Patient Goals: Goals ??? Anxiety I [...] documented as of this encounter Care Teams Principal Accounts Clerk Relationship Specialty Start Date End Date Geovanna Davis MD [address] [place] [address] [address] [place] [address] PCP - General Internal Medicine 08/16/20 Health, Virtual Behavioral [address] [place] [address], [address] [place] [address] Curriculum And Assessment CoordinatorTree Marker Health 08/31/20 documented as of this encounter
--- OUTSIDE RECORDS SUMMARY | 2024-06-18 11:51 | XMS_ITS | Encounter Summary ---
[facility] Address [address] [place] [address] Care Team Providers Care Helmet Coverer Name Role Phone Geovanna Davis MD Primary Care Provider + [phone] [facility], [facility] Behavior[facility] [phone] Reason for Referral * Consultation (Routine) - Closed Specialty Diagnoses / Procedures Referred By Contac t Referred To Contact Psychiatry Diagnoses Anxiety Current moderate episode of major depressive disorder without prior episode (CMS/[facility]) Mixed obsessional thoughts and acts Other insomnia Geovanna Davis MD [address] [facility] [employer] [facility] [address] [place] [phone] Phone: tel: fax: Lexis Perez NP [address] [place] [address] Phone: tel: fax: Referral ID Status Reason Start Date Expiration Date V isits Requested Visits Authorized [id number] Closed Specialty Services Required 07/20/2021 07/20/2022 1 1 Reason for Visit * Reason Comments Anxiety med adjust , pt unab le to obtain vitals Encounter Details Date Type Department Care Team (Late st Contact Info) Description 07/20/2021 4:00 PM EST Telemedicine [facility] [address] [facility] [address] [place] [address] Geovanna aDvis MD [address] [facility] [address] [place] [address] Anxiety (Primary Dx); Current moderate episode of major depressive disorder without prior episode (CMS/HCC); Mixed obsessional thoughts and acts; Other insomnia Social History Tobacco Use Types Packs/Day Years Used Date Smoking Tobacco: Never Smokeless Tobacco: Never Alcohol Use Standard Drinks/Week Comments Yes 2 (1 standard drink = 0.6 oz pur e alcohol) PHQ-2 Answer Date Recorded PHQ-2 Total 4 07/20/2021 Comments No Sex and Gender Information Value [...] Date of Assessment Author PRAVIN-7 Total Score 11 07/20/2021 4:29 PM EST Background, Mychart * Feeling nervous, anxious, or on edge Answer Date of Assessment Author 1 07/20/2021 4:29 PM EST Backgroun d, Mychart * Not being able to stop or control worrying Answer Date of Assessment Author 2 07/20/2021 4:29 PM EST Backgroun d, Mychart * Worrying too much about different things Answer Date of Assessment Author 2 07/20/2021 4:29 PM EST Backgroun d, Mychart * Trouble relaxing Answer Date of Assessment Author 2 07/20/2021 4:29 PM EST Backgroun d, Mychart * Being so restless that it is hard to sit still Answer Date of Assessment Author 2 07/20/2021 4:29 PM EST Backgroun d, Mychart * Becoming easily annoyed or irritable Answer Date of Assessment Author 1 07/20/2021 4:29 PM EST Backgroun d, Mychart * Feeling afraid as if something awful might happen Answer Date of Assessment Author 1 07/20/2021 4:29 PM EST Backgroun d, Mychart documented as of this encounter Progress Notes * Geovanna Davis MD - 07/20/2021 6:43 PM ESTAssociated Problem(s): Current moderate episode of major depressive disorder without prior episode ([facility]) Depression control: active Medication Compliance: compliant Medication Management: as noted in orders,patient was provided information about new prescriptions and voiced understanding,and/or referrals Self care monitoring recommended daily The patient???s care plan was reviewed and updated. Instructions and counseling were provided regarding patient goals and barriers. She was counseled to adopt a healthy lifestyle. Educational resources and self-management tools have been provided. * Geovanna Davis MD - 07/20/2021 6:40 PM ESTAssociated Problem(s): OCD (obsessive compulsive disorder) See HPI and discussion above. She does have several issues going on including depression, anxiety, obsessive- compulsive disorder and insomnia. It seems to me that these issues all overlap with 1 another. It appears that the medications that she has been using have been increased and symptoms are not well controlled. We agreed to change her medication today. I recommended that we discontinue Lexapro. We will change this to sertraline. Since she is already taking Lexapro 20 mg, I suggested that we start with sertraline 150 mg as a possible equivalent and or slight increase from where she is currently [...] new medication, she should contact me immediately. * Geovanna Davis MD - 07/20/2021 4:00 PM EST Subjective: Patient ID: Ania Wesley is a 26 y.o. female. Date of Service: 07/20/21 Is this a Visit?: (!) Yes Chief Complaint: Chief Complaint Patient presents with ??? Anxiety med adjust , pt unable to obtain vitals History of Present Illness: DATE OF LAST PHYSICAL, CPE, WWE, AWV: ?? Last OV 03/2021 Follow up anxiety/depression TODAY: Doing ok. Time to change rx to [...] was effective. +s/e dry mouth, night sweats ?? 03/20/2021: Rec continue Lexapro, Increase Lyrica to [...] Category: Mild (5-9) Reported impairment: Somewhat difficult ?? 02/28/2021: ??PLAN: Patient would like to continue Lexapro as is. ??She is hesitant to stop this as it has helped her quite a bit. ??We discussed options including adding a medication to use in conjunction with the Lexapro. ??She is open to this option. ??After considering our different choices, I decided to have her try a low-dose of Lyrica. ??I also considered other options including atypical antidepressants and tricyclic antidepressants but I was concerned about possible side effects and oversedation. ??Further, she can go ahead and still use the hydroxyzine as needed for anxiety and insomnia. ??I advised her to use this with caution as she starts the Lyrica in case the Lyrica also causessome sedation. ??She was advised to schedule a short-term follow-up appointment. ?? Reports increasing anxiety, depression Not sleeping Current rx: Lexapro 20mg, hydroxyzine??50-100??mg No appetite at all Increase in crying, outbursts- now 2X per week No energy Not sleeping- taking 50 mg hydroxyzine Still exercising Some OCD counting behaviors coming back The Lexapro was working well before she started back to school PRAVIN-7 Total:??12??Risk Category: Moderate (10-14) Reported impairment:??Somewhat difficult PHQ-9 Score:??(P) 15; Risk Category:??Moderately Severe (15-19) Suicidal ideation:??Not at all Reported impairment:??(P) Somewhat difficult?? Patient Active Problem List Diagnosis ??? Routine general medical examination at a health care facility ??? Anxiety ??? Current moderate episode of major depressive disorder without prior episode (CMS/HCC) ??? OCD (obsessive compulsive disorder) ??? Pain of finger of right hand ??? Other insomnia ??? Weight loss, unintentional Past Medical History: Diagnosis Date ??? Anxiety [...] ??? Sexual activity: Yes Partners: Male control/protection: I.U.D. Other Topics Concern ??? Not on file Social History Narrative ??? Not on file Social Determinants of Health Financial Resource Strain: Not on file Food Insecurity: Not on file Transportation Needs: Not on file Physical Activity: Not on file Stress: Not on file Social Connections: Not on file Intimate Partner Violence: Unknown ??? Has felt physically or emotionally unsafe where they currently live: Not on file ??? Physically hurt by someone in the past 12 months: Not on file ??? Humiliated or emotionally abused in past 12 months: Not on file Housing Stability: Not on file Outpatient Medications Prior to Visit Medication Sig Dispense Refill ??? hydrOXYzine (ATARAX) 50 MG tablet 1-2 TAB BY MOUTH AT BEDTIME NEEDED 60 tablet 0 ??? escitalopram oxalate (LEXAPRO) 20 MG tablet Take 1 tablet (20 mg total) by mouth daily. 30 tablet 5 ??? pregabalin (LYRICA) 25 MG capsule Take 1 capsule (25 mg total) by mouth 2 (two) times a day. 60capsule 1 No facility-administered medications prior to visit. The following portions of the patient's history were reviewed and updated as appropriate: medications, allergies, past medical history, family history, social history, surgical history, current problems. All of the patient's ROS was normal except as documented in the HPI. Review of Systems: All systems reviewed and negative unless previously mentioned in the HPI. ROS Objective: LMP (Exact Date) BP Readings from Last 2 Encounters: 04/26/21 116/68 09/01/20 114/72 Wt Readings from Last 1 Encounters: 03/20/21 59 kg (130 lb) Physical Exam: Constitutional: General Appearance: No acute distress, well appearing, and well nourished. Psychiatric: Orientation to person, place and time: Normal. Mood and affect: Normal Other: Results for orders placed or performed during the hospital encounter of 07/15/19 Gynecological Specimen Result Value Ref Range Gynecologic Cytology Final Outreach Gynecologic Cytopathology Report PATIENT ANIA WESLEY N PROCEDURE DATE 07/15/2019 1995 RECEIPT DATE 07/15/2019 23:20 AGE / SEX 24 Y / F REPORTED DATE 07/16/2019 15:[address] Outreach PROVIDER(S) ANTONIO PEREZ MD CLIENT ID: [facility] #: 0 CHART #: [id number] Clinical History: LMP: 07/13/2019 Specimen: THINPREP IMAGED [...] results occur. Performing Lab (unless otherwise specified): [place], [place] [address] [place] [address] [facility] Category: NEG for DEBBY No visits with results within 3 Month(s) from this visit. Latest known visit with results is: Hospital Outpatient Visit on 07/15/2019 Component Date Value ??? Gynecologic Cytology 07/15/2019 Value: Final Outreach Gynecologic Cytopathology Report PATIENT ANIA WESLEY N PROCEDURE DATE 07/15/2019 1995 RECEIPT DATE 07/15/2019 23:20 AGE / SEX 24 Y / F REPORTED DATE 07/16/2019 15:[address] Outreach PROVIDER(S) ANTONIO PEREZ MD CLIENT ID: [facility] #: 0 CHART #: [id number] Clinical History: LMP: 07/13/2019 Specimen: THINPREP IMAGED [...] results occur. Performing Lab (unless otherwise specified): [place] [address] [facility] Category: NEG for DEBBY Assessment and Plan: 1. Anxiety 2. Current moderate episode of major depressive disorder without prior episode (CMS/HCC) 3. Mixed obsessional thoughts and acts 4. Other insomnia Problem List Items Addressed This Visit Anxiety - Primary Relevant Orders Referral to Psychiatry Current moderate episode of major depressive disorder without prior episode (CMS/HCC) Depression control: active Medication Compliance: compliant Medication Management: as noted in orders,patient was provided information about new prescriptions and voiced understanding,and/or referrals Self care monitoring recommended daily The patient???s care plan was reviewed and updated. Instructions and counseling were provided regarding patient goals and barriers. She was counseled to adopt a healthy lifestyle. Educational resources and self-management tools have been provided. Relevant Medications sertraline (ZOLOFT) 100 MG tablet quetiapine (SEROQUEL) 25 MG tablet Other Relevant Orders Referral to Psychiatry OCD (obsessive compulsive disorder) See HPI and discussion above. She does have several issues going on including depression, anxiety, obsessive- compulsive disorder and insomnia. It seems to me that these issues all overlap with 1 another. It appears that the medications that she has been using have been increased and symptoms are not well controlled. We agreed to change her medication today. I recommended that we discontinue Lexapro. We will change this to sertraline. Since she is already taking Lexapro 20 mg, I suggested that we start with sertraline 150 mg as a possible equivalent and or slight increase from where she is currently [...] new medication, she should contact me immediately. Relevant Medications sertraline (ZOLOFT) 100 MG tablet quetiapine (SEROQUEL) 25 MG tablet Other Relevant Orders Referral to Psychiatry Other insomnia Relevant Orders Referral to Psychiatry I spent 30 minutes face to face in the presence of the patient during visit, >50% of time in counseling and/or coordination of care. Orders Placed This Encounter Procedures ??? Referral to Psychiatry Requested Prescriptions Signed Prescriptions Disp Refills ??? sertraline (ZOLOFT) 100 MG tablet 45 tablet 1 Sig: Take 1.5 tablets (150 mg total) by mouth daily. ??? quetiapine (SEROQUEL) 25 MG tablet 60 tablet 1 Si tablet by mouth at bedtime for 3-4 days, then 2 tablets by mouth at bedtime Follow-Up: Return in about 3 weeks (around 08/10/2021) for Depression/anxiety/OCD follow up PRAVIN-7, PHQ-9, VV. Patient Goals: Goals ??? Anxiety I will [...] Scheduled Referrals Name Type Priority Associated Diagnoses Orde r Schedule Referral to Psychiatry Outpatient Referral Routine Anxiety Current moderate episode of major depressive disorder without prior episode (CMS/HCC) Mixed obsessional thoughts and acts Other insomnia Ordered: 07/20/2021 documented as of this encounter Goals Goal Patient Goal Type Associated Problems Recent Progress Patient-Stated? Author Depression/Self-C are Care Management On track(2020 3:24 PM EDT) Selvin Melo [facility] Note: I will increase my knowledge and [...] 3:24 PM EDT) Selvin Melo, [facility] Note: I will increase my knowledge and [...] documented as of this encounter Care Teams Helmet Coverer Relationship Specialty Start Date End Date Geovanna Davis MD [address] [facility] [address] [place] [phone] PCP - General Internal Medicine 08/16/20 Health, [facility]al [address] [facility], [address] [place] [address] [employer] Sander[employer] Making Supervisor Health 08/31/20 documented as of this encounter
--- OUTSIDE RECORDS SUMMARY | 2024-06-18 11:51 | XMS_ITS | Encounter Summary ---
Author Organization [facility] Address [address] [place] [address] Care Team Providers Care Quality Tech Name Role Phone Geovanna Davis MD Primary Care Provider + [phone] Health, Virtual [facility]al [facility] + [phone] Encounter Details Date Type Department Care Team (Late st Contact Info) Description 09/12/2021 Telephone [facility] [address] [place] [id number] N[address] Rosado, [facility] [address] [facility] [address] [place] [address] Social History Tobacco Use Types Packs/Day Years [...] encounter Miscellaneous Notes * Telephone Encounter - Nga Rosado - 09/12/2021 12:54 PM EDT Patient was unable to be contacted for return appointment. Virtual Behavioral Health (VBH) serviceswere discontinued at this time due to unable to contact. If you are interested in additional support, please contact us at [phone], Mondays to Fridays 8:00 AM to 5:00 PM. Sincerely, [facility] team documented in this encounter Plan of Treatment Not on file documented as of this encounter Goals Goal Patient Goal Type Associated Problems Recent Progress Patient-Stated? Author Depression/Self-C are Care Management On track(2020 3:24 PM EDT) Selvin Melo [facility] Note: I will increase my [...] On track(2020 3:24 PM EDT) Selvin Melo [facility] Note: I will increase my [...] documented as of this encounter Care Teams Quality Tech Relationship Specialty Start Date End Date Geovanna Davis MD [address] [place] [address] [address] [place] [address] PCP - General Internal Medicine 08/16/20 Health, [facility] [address] [place] [address], [address] [place] [address] [employer] OperatorInventory Associate And Driver Health 08/31/20 documented as of this encounter
--- OUTSIDE RECORDS SUMMARY | 2024-06-18 11:51 | XMS_ITS | Encounter Summary ---
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 Name Role Phone Geovanna Davis MD Primary Care Provider [phone] Encounter Details Date Type Department Care Team (Late st Contact Info) Description 08/30/2020 3:00 PM EST Telemedicine [facility] [address] [place] [id number] Selvin Gray, [facility] [address] [phone] Current moderate episode of major depressive disorder without prior episode (CMS/HCC) (Primary Dx); OCD (obsessive compulsive disorder) Social History Tobacco Use Types Packs/Day Years Used Date Smoking Tobacco: Never Smokeless Tobacco: Never Alcohol Use Standard Drinks/Week Comments Yes 2 (1 standard drink = 0.6 oz pur e alcohol) PHQ-2 Answer Date Recorded PHQ-2 Score 4 09/01/2020 Comments No Sex and Gender Information Value Date Recorded Sex Assigned at Female 03/26/2022 11:03 AM EDT Legal Sex Female 5:33 PM EST Gender Identity Female 03/26/2022 11:03 AM EDT Sexual Orientation Straight 03/26/2022 11 :03 AM EDT documented as of this encounter Patient Instructions * Patient Instructions* Selvin Gray - 08/30/2020 3:00 PM EST Thank you for using [facility] today. I will: 1. Continue to use identified coping strategies to manage worries and stress (e.g. such as Walking the dog, Socializing with friends, Physical activity) 2. Practice diaphragmatic breathing: Learning to relax [...] as prescribed by your PCP or psychiatrist. 5. Write down qualities about yourself that you would like to reclaim as you look through past photos of yourself. Diaphragmatic breathing, aka belly breathing, reduces stress by lowering heart rate, decreasing muscle tension, and increasing relaxation. Practicing this breathing technique for a few minutes each hour of the day to strengthen the diaphragm muscle, train your relaxation response to turn on, and leave you with a nice relaxed feeling. Remember you have to breathe anyway, so you can practice this strategy anytime, anywhere! Remember to practice these activities when you are feeling calm. This will make it easier to utilize when feeling anxious or stressed. Diaphragmatic Breathing Instructions 1. Sit up straight with your feet supported. 2. Put one hand on your chest and the other hand over your belly. 3. Exhale all your air until your belly pulls in slightly. 4. Imagine you have a balloon underneath your belly button that inflates as you inhale and deflatesas you exhale. 5. Breathe in through your nose and pull the air deep into your lungs. Feel your belly expand, likea balloon blowing up. Exhales slowly through your mouth. Feel your belly go back in like a balloon deflating. 6. Breathe in slowly. Inhale to the count of 4, hold for 4, and exhale to the count of 4. 7. Continue this pattern for 5-10 minutes (set an alarm or timer). Rib-stretch breathing The rib stretch is another helpful deep breathing exercise. Here???s how to do it: 1. Stand up straight and arch your back. 2. Breathe out until you just can???t anymore. 3. Inhale slowly and gradually, taking in as much air as possible until you can???t breathe in anymore. 4. Hold your breath for about 10 seconds. 5. Breathe out slowly through your mouth. You can do this normally or with pursed lips. Numbered breathing Numbered breathing is a good exercise for gaining control over your breathing patterns. Here???s how you can do it: 1. Stand up, staying still, and close your eyes. 2. Inhale deeply until you can???t take in anymore air. 3. Exhale until all air has been emptied from your lungs. 4. Keep your eyes closed! Now, inhale again while picturing the number 1. 5. Keep the air in your lungs for a few seconds, then let it all out. 6. Inhale again while picturing the number 2. 7. Hold your breath while counting silently to 3, then let it all out again. 8. Repeat these steps until you???ve reached 8. Feel free to count higher if you feel comfortable. Your next appointment with a [facility] provider is scheduled for 09/06/2020 at 3:00 p.m. If you need to reschedule your next appointment with the [facility] team or have a mental health concern before your next scheduled appointment, please call [phone] or send us a message through [employer] for help. If you are thinking of hurting yourself or someone else, please call [phone] or walk in/contact the following places for immediate help. [facility] phone number: [phone]. If you need urgent assistance after regular business hours (Saturday-Saturday, 8:00am-5:00pm,) below are some locations for assistance. FOR URGENT NEEDS: [facility] [address] [place] [address] Saturday-, 8 a.m. - 8 p.m. Saturday, 8 a.m. - 3 p.m. Saturday, 8 a.m. - 1 p.m. [facility]? [address] [place] [address] Open 24 hours National Suicide Prevention Lifeline 9-442-900-TALK (2907) Crisis Text Line : text the word TALK to 137117 Mobile Crisis: documented in this encounter Progress Notes * Selvin Gray - 08/30/2020 3:00 PM EST This call will be recorded for training, dairy quality assurance officer, and treatment documentation. Agreed to continue call To comply with the Health Insurance Portability and Accountability Act (HIPPA) regulations, I need to verify some information. Can you please verify your full name and date of ? Full name and verified The goal of this health coaching program is to help you with your overall health and wellness so that you can have the tools to live a happier, healthier life. We will be able to help coordinate yourcare, understand any health conditions that you may have, and set goals to address these concerns that impact your ability to live well. As part of this program, we may be calling you on a weekly, biweekly, or monthly basis. This is a voluntary program and you can choose not to participate at any time; do you want to participate in the program? Provides verbal consent for enrollment It is important to note that [facility] is a short-term service with an average number of 6 sessions. We often assist with getting you connected to a therapist in the community in the event we determine youwould benefit from more intensive or longer term care. We work together as a team so you might speak with [facility] providers on our team at different times based on who is available and your needs. After the completion of your assessment, if appropriate, you will follow up with our qualified health instructional technology coach to create healthy goals to enhance your overall well- being alf. Should you need support from a pediatric licensed practical nurse while under the care of our health instructional technology coach, that support will be available at any time, to ensure your progress is maintained. [facility] New Adult Patient Assessment: 1. Current moderate episode of major depressive disorder without prior episode (CMS/FORMERLY [facility]) 2. OCD (obsessive compulsive disorder) Action: Jeannine's history is reportedly negative for medication non-adherence, substance use, ongoing family conflict, limited support network, socioeconomic barriers, chronic pain or illness and family obesity history. Protective factors for this patient include: motivated to improve, strong support network, identified coping strategies, employed and engaged in school. Triggering/maintaining factors may be: maladaptive health behaviors, sleep hygiene concerns, insufficient response to medication, mood / behavior concerns, trauma history, passive coping strategies, family psychiatric history, poor eating habits and dietary concerns. Screening measures indicate that Jeannine is experiencing moderately severe depressive sxs (PHQ-9: 18) and severe anxiety sxs (PRAVIN-7 Score: 15) at this time. No immediate safety concerns at this time. Jeannine denies active SI, HI, and self-harm at this time. Plan: [facility] steam fitter will follow up with Jeannine on 09/06/2020 at 3:00 p.m. to discuss relevant treatmentgoals. I will: 1. Continue to use identified coping strategies to manage worries and stress (e.g. such as Walking the dog, Socializing with friends, Physical activity) 2. Practice diaphragmatic breathing: Learning to relax [...] as prescribed by your PCP or psychiatrist. 5. Write down qualities about yourself that you would like to reclaim as you look through past photos of yourself. Diaphragmatic breathing, aka belly breathing, reduces stress by lowering heart rate, decreasing muscle tension, and increasing relaxation. Practicing this breathing technique for a few minutes each hour of the day to strengthen the diaphragm muscle, train your relaxation response to turn on, and leave you with a nice relaxed feeling. Remember you have to breathe anyway, so you can practice this strategy anytime, anywhere! Remember to practice these activities when you are feeling calm. This will make it easier to utilize when feeling anxious or stressed. Diaphragmatic Breathing Instructions 1. Sit up straight with your feet supported. 2. Put one hand on your chest and the other hand over your belly. 3. Exhale all your air until your belly pulls in slightly. 4. Imagine you have a balloon underneath your belly button that inflates as you inhale and deflatesas you exhale. 5. Breathe in through your nose and pull the air deep into your lungs. Feel your belly expand, likea balloon blowing up. Exhales slowly through your mouth. Feel your belly go back in like a balloon deflating. 6. Breathe in slowly. Inhale to the count of 4, hold for 4, and exhale to the count of 4. 7. Continue this pattern for 5-10 minutes (set an alarm or timer). Rib-stretch breathing The rib stretch is another helpful deep breathing exercise. Here???s how to do it: 1. Stand up straight and arch your back. 2. Breathe out until you just can???t anymore. 3. Inhale slowly and gradually, taking in as much air as possible until you can???t breathe in anymore. 4. Hold your breath for about 10 seconds. 5. Breathe out slowly through your mouth. You can do this normally or with pursed lips. Numbered breathing Numbered breathing is a good exercise for gaining control over your breathing patterns. Here???s how you can do it: 1. Stand up, staying still, and close your eyes. 2. Inhale deeply until you can???t take in anymore air. 3. Exhale until all air has been emptied from your lungs. 4. Keep your eyes closed! Now, inhale again while picturing the number 1. 5. Keep the air in your lungs for a few seconds, then let it all out. 6. Inhale again while picturing the number 2. 7. Hold your breath while counting silently to 3, then let it all out again. 8. Repeat these steps until you???ve reached 8. Feel free to count higher if you feel comfortable. If you are thinking of hurting yourself or someone else, please call 911 or walk in/contact the following places for immediate help. [facility] phone number: [phone]. [facility] [address], [place] [id number] [facility] [address] [place] [id number] National Suicide Prevention Lifeline 1-973-359-TALK (6049) Crisis Text Line : text the word TALK to 453675 [employer] Crisis: Session Time: 45 min. Subjective: This visit was conducted from [facility] in [place], [place] via secure, live, [id number] video conference with the patient. Jeannine was located at their home in [place], with self present, who contributed pertinent information for this session. Overview of virtual behavioral health services and limits of confidentiality were discussed with the patient. Visit was conducted in Lao per patient preference. Presenting Concerns: Pt. states that she has struggled with symptoms of anxiety and OCD for most of her life and that she has been prescribed Lexapro for the last 2.5 years. Pt. states that she has experienced deaths in her family and job losses in the family since 2019. Pt. states that she recently ended a toxic relationship that decreased her self-worth and self-esteem. Pt. states that over the past 2-3 monthsalka has experienced a weight on her shoulders, feeling sad, has low energy, and sleeps a lot. Pt. states that it has been tough to stay motivated while attending an online version of [employer]inary school. Pt. endorses poor sleep hygiene and low appetite along with low nutrition. Pt. endorses losing 8-10 pounds over the last 1-2 months. Pt. endorses depression symptoms of difficulty concentrating, low self-esteem, poor appetite, and psychomotor retardation. Pt. endorses additional anxiety symptoms of feeling on edge, uncontrolled worry, worrying about different things, trouble relaxing, feeling restless, and low frustration tolerance. Family Background: Jeannine lives with her mother, father, and sister when at home. In [place], Jeannine lives with her roommate as well as her [place]ican Shepared and a Beagle. Marital status: Single [1] Children: N/A Family psychiatric history: Yes: Maternal Grandfather (Substance use), Maternal Grandmother (Anxiety), Sister (Anxiety/Depression) Academic/ Occupational History: Highest grade completion: College student: [employer] Occupation: [employer] History: No Health Behavior Patterns: Sleep hygiene:12:00 a.m.-9 a.m. (6 hours per night due to poor sleep hygiene) Eating habits: Meal-skipping and low appetite and low nutritional intake Exercise: Gym, walking the dog (5x's per week) Hobbies: Painting, Traveling, Soccer, Horse riding, Walking my dog Substance Use Patterns: Caffeine Use: Yes: Coffee, Energy powder (Tries not to drink caffeine after 3 p.m., avg. use 2-3 cups per day) Alcohol Use: Yes Amount per day: 1-2 glasses of wine or 1-2 beers on occasion, usually with friends How often do you have 5 or more drinks in one sitting: no Smoking (Cigarettes, E-Cigs, and Marijuana): No Drug Use: No Past Psychiatric History: Previous psychiatric diagnoses: Yes: Anxiety, OCD (2.5-3 years ago) Treatment History: Yes? Psych hospitalization: No ? Previous tx plan: Medication management. No previous therapy ? Current tx plan: Medication management. History of hospitalizations: No Trauma History: Sexual: No Physical: No Emotional: Yes: Previous relationship, no safety concerns. Exposure to violence: No Self-harm History: No Suicide Attempts: No Safety Plan: No Access to firearms: Yes: Hidden and locked away in the home Current medication: Yes Prescriber: Alfredo Primary Care provider/Dr. Grimaldo or Dr. Davis MEDICATION NAME DOSAGE REASON EFFECTIVE 1. Lexapro 10 mg Anxiety Yes 2. 3. 4. 5. Coping Strategies: Walking the dog, Socializing with friends, Physical activity Support Network: Mother, Father, Sister, Best friend Gavi, Good friend Diego PHQ-9 Score: 18; Risk Category: Moderately Severe (15-19) Suicidal ideation: Not at all Reported impairment: Very difficult PRAVIN-7 Total: 15 Risk Category: Severe (15-21) Reported impairment: Very difficult Objective: Mental Status and Behavioral Observations: Appearance: WDWN, appears stated age, neatly dressed and groomed, slender Manner of interaction: cooperative, polite, talkative Language: normal in rate, tone, and volume, age-appropriate vocabulary, articulate Mood: depressed, anxious, sad Affect: calm and content, appears sad, appears anxious Thought process: linear and organized Thought content: appropriate to conversation, reports symptoms of depression, reports symptoms of anxiety, denies SI, denies AH/VH, does not appear to be responding to internal stimuli Cognition: appears of average intelligence Insight: limited Judgment: intact documented in this encounter Plan of Treatment Not on file documented as of this encounter Visit Diagnoses Diagnosis Current moderate episode of major depressive disorder without prior episode (CMS/[facility])- Primary OCD (obsessive compulsive disorder) Obsessive-compulsive disorders documented in this encounter Additional Health Concerns Assessment Noted Time PHQ-9 Depression Total Score: 18 021 3:00 PM EST documented as of this encounter Care Teams Battery Assembler Plastic Relationship Specialty Start Date End Date Geovanna Davis MD [address] [place] [id number] PCP - General Internal Medicine 08/16/20 documented as of this encounter
--- OUTSIDE RECORDS SUMMARY | 2024-06-18 11:51 | XMS_ITS | Encounter Summary ---
Author Organization [facility] Address [address] [place] [address] Care Team Providers Care Cutlet Maker Pork Name Role Phone Geovanna Davis MD Primary Care Provider + [phone] Health, Virtual Behavioral Unavailable + [phone] Reason for Visit * Reason Comments Annual Exam Depression Anxiety Encounter Details Date Type Department Care Team (Late st Contact Info) Description 04/09/2023 10:00 AM EDT Office Visit [facility] Primary Care-[address] [place] [phone] Geovanna Davis MD [address] [place] [address] [place] [phone] Routine general medical examination at a health care facility (Primary Dx); Anxiety; Current moderate episode of major depressive disorder without prior episode (CMS/HCC); Other obsessive-compulsive disorders; Other insomnia; Immunization due Social History Tobacco Use Types Packs/Day Years [...] Sign Reading Time Taken Comments Blood Pressure 124/84 04/09/2023 10:14 AM EDT Pulse 105 04/09/2023 10:14 AM EDT Temperature 36.8 ??C (98.2 ??F) 04/09/2023 10:14 AM E DT Respiratory Rate 16 04/09/2023 10:14 AM EDT Oxygen Saturation 100% 04/09/2023 10:14 AM EDT Inhaled Oxygen Concentration - - Weight 70.5 kg (155 lb 6.8 oz) 04/09/2023 10:14 AM EDT Height 171.5 cm (5' 7.52 ) 04/09/2023 10:14 AM E DT Body Mass Index 23.97 04/09/2023 10:14 AM EDT documented in this encounter Functional Status * Over the last 2 weeks, how often have you been bothered by any of the following problems? Question Answer Date of Assessment Author Feeling nervous, anxious, or on edge 0 04/09/2023 10:00 AM Geovanna Aguayo MD Not being able to stop or control worrying 0 04/09/2023 10:00 AM Geovanna Aguayo MD Worrying too much about different things 1 04/09/2023 10:00 AM Geovanna Aguayo MD Trouble relaxing 0 04/09/2023 10:00 AM Geovanna Aguayo MD Being so restless that it is hard to sit still 1 04/09/2023 10:00 AM Geovanna Aguayo MD Becoming easily annoyed or irritable 1 04/09/2023 10:00 AM Geovanna Aguayo MD Feeling afraid as if somethi ng awful might happen 0 04/09/2023 10:00 AM Geovanna Aguayo MD PRAVIN-7 Total Score 3 04/09/2023 10:00 AM Geovanna Aguayo MD documented as of this encounter Progress Notes * Geovanna Davis MD - 04/09/2023 5:26 PM EDTAssociated Problem(s): OCD (obsessive compulsive disorder) See HPI and discussion above. She does have several issues going on including depression, anxiety, obsessive- compulsive disorder and insomnia. These issues all overlap with 1 another. RX relatively stable recently. Reviewed all rx. CPM * Geovanna Davis MD - 04/09/2023 5:25 PM EDTAssociated Problem(s): Current moderate episode of major depressive disorder without prior episode ([facility]) Depression control: Medication Compliance: Medication Management: Self care monitoring recommended The patient???s care plan was reviewed and updated. Instructions and counseling were provided regarding patient goals and barriers. She was counseled to adopt a healthy lifestyle. Educational resources and self-management tools have been provided. * Geovanna Davis MD - 04/09/2023 10:31 AM EDTAssociated Problem(s): Anxiety Reviewed hx, sx, questionnaires. [...] as prescribed, HS hydroxyzine as prescribed. Advised [id number] OV * Geovanna Davis MD - 04/09/2023 10:31 AM EDTAssociated Problem(s): Other insomnia Reviewed hx,sx. She reports that she is doing well back on hydroxyzine 150mg nightly- - previously rx by psychiatry. Reviewed sleep hygiene. Would like to wean down again. * Geovanna Davis MD - 04/09/2023 10:00 AM EDT Well Visit Jeannine Keene :1995 DOS: 04/09/2023 Reason for Visit: Jeannine Keene is a 28 y.o. female who presents for a wellness visit. 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 [place] Likes her job right now She has a good mentor, doing lots of surgery She is trying to wean off hydroxyzine and would like to also eventually wean off the buspirone +SO Counseling and Referral of Preventative Services: Pneumovax: Influenza: declined today Hepatitis B: Hepatitis A: HPV vaccine: X3 Tdap/Td:2013- today COVID19 vaccine: X2, declined booster PHQ-9 Score: 2; Risk Category: Minimal (0-4) Suicidal ideation: Not at all Reported impairment: Not difficult at all PRAVIN-7 Total: 3 Risk Category: Minimal (0-4) Reported impairment: Not difficult at all Mammogram: n/a Pap smear: Last Pap 2021 at On license of [facility]. IUD Kyleena 2020. 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 Sleeping well but still using hydroxyzine 100mg No side effects Lives with boyfriend and two roommates She is still using Buspar and Lexapro as prescribed Would eventually love to wean rx down in the next year 03/29/2022:continue Lexapro 20mg, Lyrica HS and buspirone as prescribed, HS hydroxyzine as prescribed. 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 All of the patient's ROS was normal except as documented in the HPI. MEDICATIONS Current Medications (verified) Current Outpatient Medications [...] mouth nightly as needed. 270 tablet 1 pregabalin (LYRICA) 25 MG capsule Take 2 capsules (50 mg total) by mouth daily. 180 capsule 1 levonorgestrel (KYLEENA) 17.5 mcg/24 hr (5 years) IUD 1 Intra Uterine Device by Intrauterine route once. No current facility-administered medications for this visit. ASSESSMENT OF RISK FACTORS General Health How is your health?: Good Do you have an trouble hearing?: no Do you have problems with vision: no Wear contacts or glasses: no Last eye exam: (!) greater than 1 year See dentist every 6 months: yes [place] and floss daily: yes Current diet: well balanced How often do you exercise?: regularly Exercise type: riding horse, walk Health Risks Do you drink >7 alcoholic drinks/wk or >3 alcoholic drinks/occasion?: No Cardiovascular risk factors: None Do you wear a seatbelt?: yes Use sunscreen SPF30 or more: (!) no Are you sexually active with more than one partner?: no Depression Screening PHQ Depression Little interest or pleasure in doing things: Not at all Feeling down, depressed, or hopeless: Not at all PHQ-2 Total: 0 Trouble falling or staying asleep, or sleeping too much: Not at all Feeling tired or having little energy: Several days Poor appetite or overeating: Not at all Feeling bad about yourself - or that you are a failure or have let yourself or your family down: Not at all Trouble concentrating on things, such as reading the newspaper or watching television: Several days Moving or speaking so slowly that other people could have noticed. Or the opposite - being so fidgety or restless that you have been moving around a lot more than usual: Not at all Thoughts that you would be better off , or of hurting yourself in some way: Not at all PHQ-9 Total Score: 2 If you checked off any problems, how difficult have these problems made it for you to do your work,take care of things at home, or get along with other people?: Not difficult at all Cancer Screening Last mammogram: (!) Never Last colonoscopy if over 50 or high risk: never Last PAP date: 2021 HEALTH MAINTENANCE Health Maintenance Topic Date Due HIV Never done Hepatitis C antibody Never done HPV TEST Never done PAP SMEAR 07/15/2022 Influenza Vaccines (1) 03/01/2023 COVID-19 Vaccine ( season) 2023 Wellness Visit 04/09/2024 TDAP Adults Every 10 years 04/09/2033 ROS Review of Systems All other systems reviewed and are negative. PHYSICAL EXAM BP 124/84 (BP Location: Right upper arm, BP Position: Sitting, Cuff Size: Adult ([place] Blue)) Pulse 105 Temp 98.2 ??F (36.8 ??C) (Tympanic) Resp 16 Ht 1.715 m (5' 7.52 ) Wt 70.5 kg (155 lb 6.8 oz) SpO2 100% BMI 23.97 kg/m?? Physical Exam Constitutional: Appearance: She is well-developed. HENT: Head: Normocephalic and atraumatic. Eyes: Conjunctiva/sclera: Conjunctivae normal. Pupils: Pupils are equal, round, and reactive to light. Neck: Thyroid: No thyromegaly. Cardiovascular: Rate and Rhythm: Normal rate and regular rhythm. Heart sounds: Normal heart sounds. Pulmonary: Effort: Pulmonary effort is normal. Breath sounds: Normal breath sounds. Abdominal: General: Bowel sounds are normal. Palpations: Abdomen is soft. Tenderness: There is no abdominal tenderness. Musculoskeletal: General: Normal range of motion. Cervical back: Normal range of motion and neck supple. Lymphadenopathy: Cervical: No cervical adenopathy. Skin: General: Skin is warm and dry. Findings: No rash. Neurological: Mental Status: She is alert and oriented to person, place, and time. Psychiatric: Behavior: Behavior normal. Thought Content: Thought content normal. CURRENT HEALTHCARE PROVIDERS Patient Care Team: Geovanna Davis MD as PCP - General (Internal Medicine) Virtual Behavioral Health as Crown Wheel Assembler (Behavioral Health) ASSESSMENT 1. Routine general medical examination at a health care facility 2. Anxiety 3. Current moderate episode of major depressive disorder without prior episode ([facility]) 4. Other obsessive-compulsive disorders 5. Other insomnia 6. Immunization due Routine general medical examination at a health care facility Patient's history and examination were completed and reviewed. All significant concerns were addressed as appropriate and requested. Preventative care recommendations appropriate for this patient were reviewed with patient today and testing ordered, discussed or declined as indicated in notes. Patient was counseled that a yearly complete physical examination is recommended. Other insomnia Reviewed hx,sx. She reports that she is doing well back on hydroxyzine 150mg nightly- - previously rx by psychiatry. Reviewed sleep hygiene. Would like to wean down again. Anxiety Reviewed hx, sx, questionnaires. Doing great. [...] as prescribed, HS hydroxyzine as prescribed. Advised T1foemo OV Current moderate episode of major depressive disorder without prior episode ([facility]) Depression control: Medication Compliance: Medication Management: Self care monitoring recommended The patient???s care plan was reviewed and updated. Instructions and counseling were provided regarding patient goals and barriers. She was counseled to adopt a healthy lifestyle. Educational resources and self-management tools have been provided. OCD (obsessive compulsive disorder) See HPI and discussion above. She does have several issues going on including depression, anxiety, obsessive- compulsive disorder and insomnia. These issues all overlap with 1 another. RX relatively stable recently. Reviewed all rx. CPM PLAN Orders Placed This Encounter Procedures Tdap vaccine >= 7yo IM CBC CMP Lipid Panel Medications Ordered This Encounter Medications buspirone (BUSPAR) 10 MG tablet Sig: Take 1 tablet (10 mg total) by mouth nightly. Dispense: 90 tablet Refill: 1 escitalopram oxalate (LEXAPRO) 20 MG tablet Sig: Take 1 tablet (20 mg total) by mouth daily. Dispense: 90 tablet Refill: 1 hydrOXYzine (ATARAX) 50 MG tablet Sig: Take 3 tablets (150 mg total) by mouth nightly as needed. Dispense: 270 tablet Refill: 1 DX Code Needed . pregabalin (LYRICA) 25 MG capsule Sig: Take 2 capsules (50 mg total) by mouth daily. Dispense: 180 capsule Refill: 1 This request is for a new prescription for a controlled substance as required by Federal/State law. Return in about 6 months (around 10/09/2023) for Depression/anxiety follow up PRAVIN-7, PHQ-9 VV or IP. HEALTH RISK * Geovanna Davis MD - 04/08/2023 10:11 PM EDTAssociated Problem(s): Routine general medical examination at a health care facility Patient's history and examination were completed and reviewed. All significant concerns were addressed as appropriate and requested. Preventative care recommendations appropriate for this patient were reviewed with patient today and testing ordered, discussed or declined as indicated in notes. Patient was counseled that a yearly complete physical examination is recommended. documented in this encounter Plan of Treatment Not on file documented as of this encounter Goals Goal Patient Goal Type Associated Problems Recent Progress Patient-Stated? Author Depression/Self-C are Care Management On track(2020 3:24 PM EDT) Selvin Melo [facility] Note: I will increase my [...] On track(2020 3:24 PM EDT) Selvin Melo [facility] Note: I will increase my [...] documented as of this encounter Results * (ABNORMAL) Lipid Panel (04/09/2023 10:58 AM EDT) Cholesterol 179 0 - 199 mg/dL [facility] Comment: Child ages 2-17 years: Acceptable: <170 mg/dL Borderline High: 170-199 mg/dL High: > or =200 mg/dL Adult ages >18 years: Desirable: <200 mg/dL Borderline High: 200-239 mg/dL High: >or =240mg/dL Triglycerides 95 0 - 149 mg/dL [facility] Comment: Child ages 2-9 years: Acceptable: <75 mg/dL Borderline high: 75-99 mg/dL High: > or =100 mg/dL 10-17 years: Acceptable: <90 mg/dL Borderline High: 90-129 mg/dL High: > or =130 mg/dL Adult ages >18 years: Normal: <150 mg/dL Borderline High: 150-199 mg/dL High: 200-499 mg/dL Very High: > or =500 mg/dL HDL 48(L) mg/dL [facility] Comment: Child ages 2-17 years: Low HDL: <40 mg/dL Borderline Low: 40-45 mg/dL Acceptable: >45 mg/dL Adult ages >18 years: Males: > or =40 mg/dL Females: > or =50 mg/dL LDL, Calculation 112(H) 0 - 100 mg/dL [facility] Cholesterol/HDL Ratio 3.7 0.0 - 5.0 [facility] 04/09/2023 10:5 8 AM EDT 04/09/2023 4:50 PM EDT us Geovanna Davis MD LAB BLOOD ORDERABLES Final R esult [facility] [address] [facility] [place] [address] * CMP (04/09/2023 10:58 AM EDT) [facility] Sodium 140 136 - 145 mmol/L [facility] Potassium 4.9 3.5 - 5.1 mmol/L [facility] Chloride 104 99 - 108 mmol/L [facility] CO2 29 21 - 31 mmol/L [facility] BUN 14 7 - 25 mg/dL [facility] Creatinine 0.84 0.51 - 1.00 mg/dL [facility] Glucose, Random 78 70 - 199 mg/dL [facility] Calcium, Total 9.6 8.8 - 10.6 mg/dL [facility] Osmolality (calculated) 279 270 - 295 mOsm/kg [facility] Anion Gap 7 3 - 11 [facility] Albumin 4.7 3.5 - 5.7 g/dL [facility] Bilirubin, Total 0.7 0.3 - 1.0 mg/dL [facility] Alkaline Phosphatase 60 34 - 104 IU/L [facility] ALT 10 7 - 52 IU/L [facility] AST 19 13 - 39 IU/L [facility] Protein, Total 7.0 6.4 - 8.9 g/dL [facility] Albumin/Globulin Ratio 2.0 1.2 - 2.3 [facility] 04/09/2023 10:5 8 AM EDT 04/09/2023 4:50 PM EDT Geovanna Davis MD LAB BLOOD ORDERABLES Final R esult [facility] [address] [place] [address] * (ABNORMAL) CBC (04/09/2023 10:58 AM EDT) [facility] WBC 7.8 3.6 - 11.2 K/uL [facility] RBC 5.26(H) 3.63 - 4.92 M/uL [facility] Hemoglobin 14.3 10.9 - 14.3 g/dL [facility] Hematocrit 43(H) 31 - 42 % [facility] Mean Cell Volume 82 74 - 96 fL [facility] Mean Cell Hemoglobin 27 24 - 33 pg [facility] Mean Cell Hemoglobin Concentration 33 33 - 36 g/dL [facility] RDW 13.3 12.3 - 17.0 % [facility] Platelet Count 305 150 - 450 K/uL [facility] Mean Platelet Volume 8.8 7.5 - 11.2 fL [facility] 04/09/2023 10:5 8 AM EDT 04/09/2023 2:00 PM EDT us Geovanna Davis MD LAB BLOOD ORDERABLES Final R esult [facility] [address] [place] [place] [address] documented in this encounter Visit Diagnoses Diagnosis Routine general medical examination at a health care facility- Primary Anxiety Anxiety state, unspecified Current moderate episode of major depressive disorder without prior episode (CMS/HCC) Other obsessive-compulsive disorders Other insomnia Immunization due documented in this encounter Additional Health Concerns Assessment Noted Time PHQ-9 Depression Total Score: 2 04/09/20 23 10:00 AM EDT documented as of this encounter Care Teams Cutlet Maker Pork Relationship Specialty Start Date End Date Geovanna Davis MD [address] [facility] [address] [facility] [place] [id number] PCP - General Internal Medicine 08/16/20 Health, Virtual Behavioral [address] [place] [address], [address] [place] [address] Crown Wheel AssemblerLayboy Tender Health 08/31/20 documented as of this encounter
--- OUTSIDE RECORDS SUMMARY | 2024-06-18 11:51 | XMS_ITS | Encounter Summary ---
Author Organization [facility] Address [address] [place] [address] Care Team Providers Care Four Slide Operator Name Role Phone Geovanna Davis MD Primary Care Provider + [phone] Health, Virtual Behavioral Unavailable + [phone] Reason for Visit * Reason Comments Annual Exam Not fasting Depression Anxiety Encounter Details Date Type Department Care Team (Late st Contact Info) Description 03/29/2022 3:15 PM EDT Office Visit [facility] [place] [address] Geovanna Davis MD [address] [facility] [address] [place] [address] Routine general medical examination at [...] PHQ-2 Answer Date Recorded PHQ-2 Total 0 03/29/2022 Comments No Sex and Gender Information Value Date Recorded Sex Assigned at Female 03/26/2022 11:03 AM EDT Legal Sex Female 5:33 PM EST Gender Identity Female 03/26/2022 11:03 AM EDT Sexual Orientation Straight 03/26/2022 11 :03 AM EDT documented as of this encounter Last Filed Vital Signs Vital Sign Reading Time Taken Comments Blood Pressure 104/72 03/29/2022 3:21 PM EDT Pulse 100 03/29/2022 3:21 PM EDT Temperature 36.7 ??C (98 ??F) 03/29/2022 3:21 PM EDT Respiratory Rate 16 03/29/2022 3:21 PM EDT Oxygen Saturation 98% 03/29/2022 3:21 PM EDT Inhaled Oxygen Concentration - - Weight 69.1 kg (152 lb 5.4 oz) 03/29/2022 3:21 P M EDT Height 171.1 cm (5' 7.36 ) 03/29/2022 3:21 PM ED T Body Mass Index 23.6 03/29/2022 3:21 PM EDT documented in this encounter Functional Status * Over the last 2 weeks, how often have you been bothered by any of the following problems? Question Answer Date of Assessment Author Feeling nervous, anxious, or on edge 1 03/29/2022 3:00 PM EDT Geovanna Davis MD Not being able to stop or co ntrol worrying 1 03/29/2022 3:00 PM EDT Geovanna Davis MD Worrying too much about diff erent things 1 03/29/2022 3:00 PM SAIT Geovanna Daivs MD Trouble relaxing 1 03/29/2022 3:00 PM EDT Geovanna Scherer MD Being so restless that it is hard to sit still 0 03/29/2022 3:00 PM SAIT Geovanna Davis MD Becoming easily annoyed or irritable 2 03/29/2022 3:00 PM EDT Geovanna Davis MD Feeling afraid as if somethi ng awful might happen 0 03/29/2022 3:00 PM EDT Geovanna Davis MD PRAVIN-7 Total Score 6 03/29/2022 3:00 PM EDT Geovanna Davis MD documented as of this encounter Progress Notes * Geovanna Davis MD - 03/29/2022 10:17 PM EDTAssociated Problem(s): Other insomnia Reviewed hx,sx. She reports that she is doing well on hydroxyzine 150mg nightly- this is decreased from 200mg- previously rx by psychiatry. Reviewed sleep hygiene. * Geovanna Davis MD - 03/29/2022 10:17 PM EDTAssociated Problem(s): Current moderate episode of major depressive disorder without prior episode (CMS/[facility]) Depression control: active Medication Compliance: compliant Medication Management: as noted in orders Self care monitoring recommended daily The patient???s care plan was reviewed and updated. Instructions and counseling were provided regarding patient goals and barriers. She was counseled to adopt a healthy lifestyle. Educational resources and self-management tools have been provided. * Geovanna Davis MD - 03/29/2022 10:13 PM EDTAssociated Problem(s): Anxiety Reviewed hx, sx, questionnaires. Doing great. Patient would like to continue Lexapro as is. She is hesitant to stop this as it has helped her quite a bit. We discussed options including adding a medication to use in conjunction withthe Lexapro. She continues Lyrica HS. Still using the hydroxyzine HS for anxiety and insomnia, 150mg. I advised her to continue to monitor self for over sedation. Reviewed rx- continue Lexapro 20mg, Lyrica HS and buspirone as prescribed, HS hydroxyzine as prescribed. Advised [id number] OV * Geovanna Davis MD - 03/29/2022 3:15 PM EDT Well Visit Jeannine Keene :1995 DOS: 03/29/2022 Reason for Visit: Jeannine Keene is a 27 y.o. female who presents for a wellness visit. 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 She notes that the anxiety and depression have improved She feels that she is in a good relationship Has had a job offer Lives with boyfriend She has reduced the buspirone, pregabalin- only takes HS She is taking Lexapro in AM Family is in good health Counseling and Referral of Preventative Services: Pneumovax: Influenza: Hepatitis B: Hepatitis A: HPV vaccine: X3 Tdap/Td: 11/2012- she feels like she had TDAP in <10 yrs. 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 Taking better care of self. Diet- healthy overall Exercise- not really but still active- rides horse, walks dog Weight is increased but she is feeling healthy. Previous weight was too low. PHQ-9 Score: 2; Risk Category: Minimal (0-4) Suicidal ideation: Not at all Reported impairment: Somewhat difficult PRAVIN-7 Total: 6 Risk Category: Mild (5-9) Reported impairment: Somewhat difficult Mammogram: n/a Pap smear: 07/15/2019 NORMAL PAP Lipid screen: none- ordered Diabetes screen:???- ordered HIV screen: ordered 12/26/2021: Follow up anxiety/depression: Notes she is doing very well Did [...] HS. I advised her to take maximum [id number] HS PHQ-2 Score: (P) 0 Suicidal ideation: Reported impairment: PRAVIN-7 Total: 3 Risk Category: Minimal (0-4) Reported impairment: Not difficult at all MEDICAL HISTORY Patient Active Problem List Diagnosis [...] Diabetes Maternal Grandmother Depression Sister Social History Tobacco Use Smoking Status Never Smokeless Tobacco Never Social History Substance and Sexual Activity Alcohol Use Yes Alcohol/week: 2.0 standard drinks Types: 2 Glasses of wine per week Social History Substance and Sexual Activity Drug Use Never The following portions of the patient's history [...] tablet (10 mg total) by mouth nightly. 30 tablet 5 escitalopram oxalate (LEXAPRO) 20 MG tablet Take 1 tablet (20 mg total) by mouth daily. 30 tablet 5 hydrOXYzine (ATARAX) 50 MG tablet Take 3 tablets (150 mg total) by mouth nightly as needed. 90 tablet 5 pregabalin (LYRICA) 25 MG capsule Take 2 capsules (50 mg total) by mouth nightly. 60 capsule 5 No current facility-administered medications for this visit. ASSESSMENT OF RISK FACTORS General Health How is your health?: Good Do you have an trouble hearing?: no Do you have problems with vision: no Wear contacts or glasses: (!) yes Last eye exam: less than 1 year See dentist every 6 months: yes [place] and floss daily: yes Current diet: (!) too many processed foods How often do you exercise?: regularly Exercise type: bike ride, horseback ride, walking Health Risks Do you drink >7 alcoholic drinks/wk or >3 alcoholic drinks/occasion?: No Cardiovascular risk factors: None Do you wear a seatbelt?: yes Use sunscreen SPF30 or more: yes Are you sexually active with more than one partner?: no Depression Screening PHQ Depression Little interest or pleasure in doing things: Not at all Feeling down, depressed, or hopeless: Not at all PHQ-2 Total: 0 Trouble falling or staying asleep, or sleeping too much: Several days Feeling tired or having little energy: Several [...] home, or get along with other people?: Somewhat difficult Cancer Screening Last mammogram: (!) Never Last colonoscopy if over 50 or high risk: never Last PAP date: <1 year ago HEALTH MAINTENANCE Health Maintenance Topic Date Due HPV TEST Never done COVID-19 Vaccine (4 - Booster for Moderna series) 12/18/2021 Influenza Vaccines (1) 03/01/2022 PAP SMEAR 07/15/2022 TDAP Adults Every 10 years 11/29/2022 Wellness Visit 03/29/2023 ROS Review of Systems All other systems reviewed and are negative. PHYSICAL EXAM BP 104/72 (BP Location: Left upper arm, BP Position: Sitting, Cuff Size: Adult ([place])) [id number] Temp 98 ??F (36.7 ??C) (Oral) Resp 16 Ht 1.711 m (5' 7.36 ) Wt 69.1 kg (152 lb 5.4 oz) SpO2 98% BMI 23.60 kg/m?? Physical Exam Constitutional: Appearance: She is [...] Content: Thought content normal. Judgment: Judgment normal. CURRENT HEALTHCARE PROVIDERS Patient Care Team: Geovanna Davis MD as PCP - General (Internal Medicine) Virtual Behavioral Health as Foster Parent (Behavioral Health) ASSESSMENT 1. Routine general medical examination at a health care facility 2. Anxiety 3. Current moderate episode of major depressive disorder without prior episode (CMS/HCC) 4. Mixed obsessional thoughts and acts 5. Other insomnia Routine general medical examination at a health care facility Patient's history and examination were completed and reviewed. All significant concerns were addressed as appropriate and requested. Preventative care recommendations appropriate for this patient were reviewed with patient today and testing ordered, discussed or declined as indicated in notes. Patient was counseled that a yearly complete physical examination is recommended. Anxiety Reviewed hx, sx, questionnaires. Doing great. Patient would like to continue Lexapro as is. She is hesitant to stop this as it has helped her quite a bit. We discussed options including adding a medication to use in conjunction withthe Lexapro. She continues Lyrica HS. Still using the hydroxyzine HS for anxiety and insomnia, 150mg. I advised her to continue to monitor self for over sedation. Reviewed rx- continue Lexapro 20mg, Lyrica HS and buspirone as prescribed, HS hydroxyzine as prescribed. Advised [id number] OV Current moderate episode of major depressive disorder without prior episode (CMS/HCC) Depression control: active Medication Compliance: compliant Medication Management: as noted in orders Self care monitoring recommended daily The patient???s care plan was reviewed and updated. Instructions and counseling were provided regarding patient goals and barriers. She was counseled to adopt a healthy lifestyle. Educational resources and self-management tools have been provided. Other insomnia Reviewed hx,sx. She reports that she is doing well on hydroxyzine 150mg nightly- this is decreased from 200mg- previously rx by psychiatry. Reviewed sleep hygiene. PLAN Orders Placed This Encounter Procedures CBC CMP Lipid Panel HIV Antigen/Antibody with Reflex to Confirmation Medications Ordered This Encounter Medications pregabalin (LYRICA) 25 MG capsule Sig: Take 2 capsules (50 mg total) by mouth nightly. Dispense: 60 capsule Refill: 5 buspirone (BUSPAR) 10 MG tablet Sig: Take 1 tablet (10 mg total) by mouth nightly. Dispense: 30 tablet Refill: 5 escitalopram oxalate (LEXAPRO) 20 MG tablet Sig: Take 1 tablet (20 mg total) by mouth daily. Dispense: 30 tablet Refill: 5 hydrOXYzine (ATARAX) 50 MG tablet Sig: Take 3 tablets (150 mg total) by mouth nightly as needed. Dispense: 90 tablet Refill: 5 DX Code Needed . Return in about 6 months (around 09/26/2022) for Depression/anxiety follow up PRAVIN-7, PHQ-9. HEALTH RISK * Geovanna Davis MD - 03/28/2022 10:13 PM EDTAssociated Problem(s): Routine general medical examination [...] On track(2020 3:24 PM EDT) Selvin Melo [facility] Note: I will increase my knowledge and [...] On track(2020 3:24 PM EDT) Selvin Melo [facility] Note: I will increase my knowledge and [...] * HIV Antigen/Antibody with Reflex to Confirmation: (04/09/2023 10:58 AM EDT) HIV Result NONREACTIVE Non-Reac tive [facility] Comment: HIV testing performed by FDA approved Ag/Ab combo chemiluminescent screening method. 04/09/2023 10:5 8 AM EDT 04/09/2023 4:50 PM EDT us Geovanna Davis MD LAB BLOOD ORDERABLES Final R esult [facility] [address] [place] [address] documented in this encounter Visit Diagnoses Diagnosis Routine general medical examination at a health care facility- Primary Anxiety Anxiety state, unspecified Current moderate episode of major depressive disorder without prior episode (CMS/HCC) Mixed obsessional thoughts and acts Other insomnia documented in this encounter Additional Health Concerns Assessment Noted Time PHQ-9 Depression Total Score: 2 03/29/20 22 3:15 PM EDT documented as of this encounter Care Teams Four Slide Operator Relationship Specialty Start Date End Date Geovanna Davis MD [address] [facility] [address] [place] [address] PCP - General Internal Medicine 08/16/20 Health, Virtual Behavioral [address] [facility], [address] [place] [address] Foster ParentHeel Cover Softener Health 08/31/20 documented as of this encounter
--- OUTSIDE RECORDS SUMMARY | 2024-06-18 11:51 | XMS_ITS | Encounter Summary ---
Author Organization [facility] Address [address] [place] [address] Care Team Providers Care Reference Archivist Name Role Phone Geovanna Davis MD Primary Care Provider + [phone] Health, Virtual Behavioral Unavailable + [phone] Reason for Visit * Reason Comments Anxiety Depression Medication Management Encounter Details Date Type Department Care Team (Late st Contact Info) Description 03/20/2021 2:15 PM EDT Telemedicine [facility]-[address] [place] [address] Geovanna Davis MD [address] [facility] [address] [place] [address] Anxiety (Primary Dx); Current moderate episode of major depressive disorder without prior episode (CMS/HCC); Mixed obsessional thoughts and acts; Other insomnia; Weight loss, unintentional Social History Tobacco Use Types Packs/Day Years Used Date Smoking Tobacco: Never Smokeless Tobacco: Never Alcohol Use Standard Drinks/Week Comments Yes 2 (1 standard drink = 0.6 oz pur e alcohol) PHQ-2 Answer Date Recorded PHQ-2 Total 2 03/20/2021 Comments No Sex and Gender Information Value Date Recorded Sex Assigned at Female 03/26/2022 11:03 AM EDT Legal Sex Female 5:33 PM EST Gender Identity Female 03/26/2022 11:03 AM EDT Sexual Orientation Straight 03/26/2022 11 :03 AM EDT documented as of this encounter Last Filed Vital Signs Vital Sign Reading Time Taken Comments Blood Pressure - - Pulse 90 03/20/2021 2:07 PM EDT Temperature - - Respiratory Rate - - Oxygen Saturation - - Inhaled Oxygen Concentration - - Weight 59 kg (130 lb) 03/20/2021 2:07 PM EDT Height 170.2 cm (5' 7.01 ) 03/20/2021 2:07 PM ED T Body Mass Index 20.36 03/20/2021 2:07 PM EDT documented in this encounter Functional Status * Over the last 2 weeks, how often have you been bothered by any of the following problems? Question Answer Date of Assessment Author PRAVIN-7 Total Score 6 03/20/2021 2:04 PM EDT Background, Mychart * Feeling nervous, anxious, or on edge Answer Date of Assessment Author 1 03/20/2021 2:04 PM EDT Backgroun d, Mychart * Not being able to stop or control worrying Answer Date of Assessment Author 1 03/20/2021 2:04 PM EDT Backgroun d, Mychart * Worrying too much about different things Answer Date of Assessment Author 1 03/20/2021 2:04 PM EDT Backgroun d, Mychart * Trouble relaxing Answer Date of Assessment Author 1 03/20/2021 2:04 PM EDT Backgroun d, Mychart * Being so restless that it is hard to sit still Answer Date of Assessment Author 2 03/20/2021 2:04 PM EDT Backgroun d, Mychart * Becoming easily annoyed or irritable Answer Date of Assessment Author 0 03/20/2021 2:04 PM EDT Backgroun d, Mychart * Feeling afraid as if something awful might happen Answer Date of Assessment Author 0 03/20/2021 2:04 PM EDT Backgroun d, Mychart documented as of this encounter Progress Notes * Geovanna Davis MD - 03/20/2021 7:56 PM EDTAssociated Problem(s): Anxiety Reviewed hx, sx, [...] follow-up appointment after this rx dose adjustment. * Geovanna Davis MD - 03/20/2021 2:15 PM EDT Subjective: VIDEO VISIT I conducted this encounter via secure, live Video Visit with the patient. I confirmed the patient'sname and date of . He/She was located at home in [place], with the patient only and theprovider only participating in the encounter. Prior to the interview, the risks and benefits of telemedicine were discussed with the patient and verbal consent was obtained. CALL WAS INTERRUPTED MID WAY THROUGH VISIT AND CONVERTED TO PHONE ONLY. I have identified myself and conveyed my [...] a 26 y.o. female. Date of Service: 03/20/21 Is this a CM Visit?: (!) Yes Chief Complaint: Chief Complaint Patient presents with ??? Anxiety ??? Depression ??? Medication Management History of Present Illness: Follow up anxiety/depression TODAY: Sleeping a bit better She is doing [...] Gatherings with Friends and Family: ??? Attends [employer] Services: ??? Active Member of Clubs or [...] 5 ??? hydrOXYzine (ATARAX) 50 MG tablet 1-2 tab by mouth at bedtime as needed 60 tablet 1 ??? pregabalin (LYRICA) 25 MG capsule Take 1 capsule (25 mg total) by mouth 2 (two) times a day. 60capsule 2 No facility-administered medications prior to visit. The following portions of the patient's history were reviewed and updated as appropriate: medications, allergies, past medical history, family history, social history, surgical history, current problems. All of the patient's ROS was normal except as documented in the HPI. Review of Systems: All systems reviewed and negative unless previously mentioned in the HPI. ROS Objective: Pulse 90 Ht 1.702 m (5' 7.01 ) Wt 59 kg (130 lb) BMI 20.36 kg/m?? Physical Exam: Gen: alert and oriented, NAD, well appearing Resp: normal RR, no tachypnea, no retractions Skin: no visualized rash on observed skin Psych: normal mood, A and O x3 Assessment and Plan: 1. Anxiety 2. Current moderate episode of major depressive disorder without prior episode (CMS/HCC) 3. Mixed obsessional thoughts and acts 4. Other insomnia 5. Weight loss, unintentional Problem List Items Addressed This Visit Anxiety [...] follow-up appointment after this rx dose adjustment. Current moderate episode of major depressive disorder without prior episode (CMS/HCC) OCD (obsessive compulsive disorder) Other insomnia Relevant Medications hydrOXYzine (ATARAX) 50 MG tablet Weight loss, unintentional Medications Ordered This Encounter Medications ??? hydrOXYzine (ATARAX) 50 MG tablet Sig: Take 1 tablet (50 mg total) by mouth nightly as needed. Dispense: 30 tablet Refill: 1 ??? pregabalin (LYRICA) 25 MG capsule Sig: Take 1 capsule (25 mg total) by mouth 2 (two) times a day. Dispense: 60 capsule Refill: 1 Medications Discontinued During This Encounter Medication Reason ??? pregabalin (LYRICA) 25 MG capsule Reorder ??? hydrOXYzine (ATARAX) 50 MG tablet I spent 15 minutes face to face with the patient, providing patient care, education, and counseling. Follow-Up: Return in about 1 month (around 04/19/2021) for Depression/anxiety follow up PRAVIN-7, PHQ-9. Patient [...] On track(2020 3:24 PM EDT) Selvin Melo [facility] Note: I will increase my knowledge [...] On track(2020 3:24 PM EDT) Selvin Melo [facility] Note: I will increase my knowledge [...] of major depressive disorder without prior episode (CMS/[facility]) Mixed obsessional thoughts and acts Other insomnia Weight loss, unintentional Loss of weight documented in this encounter Additional Health Concerns Assessment Noted Time PHQ-9 Depression Total Score: 8 03/20/20 21 2:05 PM EDT documented as of this encounter Care Teams Reference Archivist Relationship Specialty Start Date End Date Geovanna Davis MD [address] [place] [id number] PCP - General Internal Medicine 08/16/20 [email or web address] [address] [place] [address], [address] [place] [address] Lens MatcherGallery Assistant Health 08/31/20 documented as of this encounter
--- OUTSIDE RECORDS SUMMARY | 2024-06-18 11:51 | XMS_ITS | Encounter Summary ---
Author Organization [facility] Address [address] [place] [address] Care Team Providers Care Nocturnist Physician Name Role Phone Geovanna Davis MD Primary Care Provider + [phone] Health, [facility] Unavailable + [phone] Encounter Details Date Type Department Care Team (Latest Contact Info) Description 04/09/2023 10:50 AM EDT - 04/09/2023 11:59 PM EDT Hospital Encounter [facility] Out[facility] [address] [place] [address] Geovanna Davis MD [address] [facility] [address] [place] [address] Routine general medical examination at a health care facility Discharge Disposition: Home or Self Care Social [...] or on edge 0 04/09/2023 10:00 AM EDGeovanna Mejia MD Not being able to stop or [...] Aguayo MD documented as of this encounter Medications at Time of Discharge levonorgestrel (KYLEENA) 17.5 mcg/24 hr (5 years) IUD 1 Intra Uterine Device by Intrauterine route once. buspirone (BUSPAR) 10 MG tablet Take 1 tablet (10 mg total) by mouth nightly. 90 tablet 1 04/09/2023 3 escitalopram oxalate (LEXAPRO) 20 MG tabletIndication s:Anxiety Take 1 tablet (20 mg total) by mouth daily. 90 tablet 1 04/09/2023 4 hydrOXYzine (ATARAX) 50 MG tabletIndication s:Other insomnia Take 3 tablets (150 mg total) by mouth nightly as needed. 270 tablet 1 04/09/2023 4 pregabalin (LYRICA) 25 MG capsuleIndicatio ns:Anxiety Take 2 capsules (50 mg total) by mouth daily. 180 capsule 1 04/09/2023 3 documented as of this encounter Plan of Treatment Not on file documented as of this encounter Goals Goal Patient Goal Type Associated Problems Recent Progress Patient-Stated? Author Depression/Self-C are Care Management On track(2020 3:24 PM EDT) Selvin Melo [facility] Note: I will increase my knowledge and [...] On track(2020 3:24 PM EDT) Selvin Melo [facility] Note: I will increase my knowledge and [...] Date/Time Associated Diagnosis Comments EGFR (CKD-EPI) Routine 04/09/2023 10:58 AM EDT CBC Routine 04/09/2023 10:58 AM EDT Routine general medical examination at a health care facility HIV ANTIGEN/ANTIBODY WITH REFLEX TO CONFIRMATION Routine 04/09/2023 10:58 AM EDT Routine general medical examination at a [facility] care facility LIPID PANEL Routine 04/09/2023 10:58 AM EDT Routine general medical examination at a [facility] care facility CMP Routine 04/09/2023 10:58 AM EDT Routine general medical examination at a [facility] facility documented in this encounter Results * eGFR (CKD-EPI) (04/09/2023 10:58 AM EDT) eGFR >60 mL/min/1.7 3m2 [facility] Comment: Interpretive Ranges for Patients with [...] that does not use a race coefficient. 04/09/2023 10:5 8 AM EDT 04/09/2023 4:50 PM EDT us Geovanna Davis MD LAB BLOOD ORDERABLES Final R esult [facility] [address] [place] [address] * (ABNORMAL) Lipid Panel (04/09/2023 10:58 AM EDT) Cholesterol 179 0 - 199 mg/dL [facility] Comment: Child ages 2-17 years: Acceptable: <170 mg/dL Borderline High: 170-199 mg/dL High: > or =200 mg/dL Adult ages >18 years: Desirable: <200 mg/dL Borderline High: 200-239 mg/dL High: >or =240mg/dL Triglycerides 95 0 - 149 mg/dL [facility] Comment: Child ages 2-9 years: Acceptable: <75 mg/dL Borderline high: 75-99 mg/dL High: > or =100 mg/dL 10-17 years: Acceptable: <90 mg/dL Borderline High: 90-129 mg/dL High: > or =130 mg/dL Adult ages >18 years: Normal: <150 mg/dL Borderline High: 150-199 mg/dL High: 200-499 mg/dL Very High: > or =500 mg/dL HDL 48(L) mg/dL [facility] Comment: Child ages 2-17 years: Low HDL: <40 mg/dL Borderline Low: 40-45 mg/dL Acceptable: >45 mg/dL Adult ages >18 years: Males: > or =40 mg/dL Females: > or =50 mg/dL LDL, Calculation 112(H) 0 - 100 mg/dL [facility] Cholesterol/HDL Ratio 3.7 0.0 - 5.0 [facility] 04/09/2023 10:5 8 AM EDT 04/09/2023 4:50 PM EDT us Geovanna Davis MD LAB BLOOD ORDERABLES Final R esult Performing Organization Address City/State/[facility] Co de Phone Number [facility] [address] [place] [address] * CMP (04/09/2023 10:58 AM EDT) Sodium 140 136 - 145 mmol/L [facility] Potassium 4.9 3.5 - 5.1 mmol/L [facility] Chloride 104 99 - 108 mmol/L [facility] CO2 29 21 - 31 mmol/L [facility] BUN 14 7 - 25 mg/dL [facility] Creatinine 0.84 0.51 - 1.00 mg/dL [facility] Glucose, Random 78 70 - 199 mg/dL [facility] Calcium, Total 9.6 8.8 - 10.6 mg/dL [facility] Osmolality (calculated) 279 270 - 295 mOsm/kg [facility] Anion Gap 7 3 - 11 [facility] Albumin 4.7 3.5 - 5.7 g/dL [facility] Bilirubin, Total 0.7 0.3 - 1.0 mg/dL [facility] Alkaline Phosphatase 60 34 - 104 IU/L [facility] ALT 10 7 - 52 IU/L [facility] AST 19 13 - 39 IU/L [facility] Protein, Total 7.0 6.4 - 8.9 g/dL [facility] Albumin/Globulin Ratio 2.0 1.2 - 2.3 [facility] 04/09/2023 10:5 8 AM EDT 04/09/2023 4:50 PM EDT us Geovanna Davis MD LAB BLOOD ORDERABLES Final R esult [facility] [address] [place] [address] * (ABNORMAL) CBC (04/09/2023 10:58 AM EDT) WBC 7.8 3.6 - 11.2 K/uL [facility] RBC 5.26(H) 3.63 - 4.92 M/uL [facility] Hemoglobin 14.3 10.9 - 14.3 g/dL [facility] Hematocrit 43(H) 31 - 42 % [facility] Mean Cell Volume 82 74 - 96 fL [facility] Mean Cell Hemoglobin 27 24 - 33 pg [facility] Mean Cell Hemoglobin Concentration 33 33 - 36 g/dL [facility] RDW 13.3 12.3 - 17.0 % [facility] Platelet Count 305 150 - 450 K/uL [facility] Mean Platelet Volume 8.8 7.5 - 11.2 fL [facility] 04/09/2023 10:5 8 AM EDT 04/09/2023 2:00 PM EDT us Geovanna Davis MD LAB BLOOD ORDERABLES Final R esult Performing Organization Address City/[facility] Co de Phone Number [facility] [address] [place] [address] * HIV Antigen/Antibody with Reflex to Confirmation: (04/09/2023 10:58 AM EDT) HIV Result NONREACTIVE Non-Reac tive [facility] Comment: HIV testing performed by FDA approved Ag/Ab combo chemiluminescent screening method. 04/09/2023 10:5 8 AM EDT 04/09/2023 4:50 PM EDT us Geovanna Davis MD LAB BLOOD ORDERABLES Final R esult Performing Organization Address City/[facility] Co de Phone Number [facility] [address] [place] [address] documented in this encounter Visit Diagnoses Diagnosis Routine general medical examination at a health care facility documented in this encounter Additional Health Concerns Assessment Noted Time PHQ-9 Depression Total Score: 2 04/09/20 23 10:00 AM EDT documented as of this encounter Care Teams Nocturnist Physician Relationship Specialty Start Date End Date Geovanna Davis MD [address] [place] [address] [address] [place] [address] PCP - General Internal Medicine 08/16/20 Health, [facility] [address], [address] [place] [address] Promotions RepresentativePickling Drum Operator Health 08/31/20 documented as of this encounter
--- OUTSIDE RECORDS SUMMARY | 2024-06-18 11:51 | XMS_ITS | Encounter Summary ---
Author Organization [facility] Address [address] [place] [address] Care Team Providers Care Cat And Dog Bather Name Role Phone Geovanna Davis MD Primary Care Provider + [phone] Health, [facility] Behavior[facility] Unavailable + [phone] Encounter Details Date Type Department Care Team (Late st Contact Info) Description 07/20/2021 Telephone [facility] [address] [place] [address] [address] [place] [address] Eliane Go MA Social History Tobacco Use Types Packs/Day Years [...] encounter Miscellaneous Notes * Telephone Encounter - Eliane Go MA - 07/20/2021 3:58 PM EST L/m for a return call to pre triage for VV with PCP documented in this encounter Plan of Treatment Not on file documented as of this encounter Goals Goal Patient Goal Type Associated Problems Recent Progress Patient-Stated? Author Depression/Self-C are Care Management On track(2020 3:24 PM EDT) Selvin Melo [facility] Note: I will increase [...] On track(2020 3:24 PM EDT) Selvin Melo [facility] Note: I will increase [...] documented as of this encounter Care Teams Cat And Dog Bather Relationship Specialty Start Date End Date Geovanna Davis MD [address] [facility] [address] [place] [address] PCP - General Internal Medicine 08/16/20 [facility], [facility] [address] [place] [address], [address] [place] [address] Campaign AdvisorTurbine Engineer Health 08/31/20 documented as of this encounter
--- OUTSIDE RECORDS SUMMARY | 2024-06-18 11:51 | XMS_ITS | Encounter Summary ---
Author Organization [facility] Address [address] [place] [address] Care Team Providers Care Operations Dispatcher Name Role Phone Geovanna Davis MD Primary Care Provider [phone] Reason for Referral * Consultation (Routine) - Closed Specialty Diagnoses / Procedures Referred By Contelsie t Referred To Contact Psychology Diagnoses Anxiety Current moderate episode of major depressive disorder without prior episode (CMS/HCC) Mixed obsessional thoughts and acts Geovanna Davis MD [address] [place] [address] Phone: tel: fax: Lexis Perez NP [address] [place] [address] Phone: tel: fax: Referral ID Status Reason Start Date Expiration Date V isits Requested Visits Authorized [id number] Closed Specialty Services Required 08/16/2020 08/16/2021 1 1 Reason for Visit * Reason Comments Establish Care Anxiety Insomnia ongoing 3-4 months Medication Management unsure if wants to continue Lexapro Hand Pain index finger knuckle on right hand Encounter Details Date Type Department Care Team (Late st Contact Info) Description 08/16/2020 9:00 AM EST Office Visit Replaced by [facility] [address] [facility] [address] [place] [address] Geovanna Davis MD [address] [place] [address] Anxiety (Primary Dx); Current moderate episode of major depressive disorder without prior episode (CMS/HCC); Mixed obsessional thoughts and acts; Pain of finger of right hand Social History Tobacco Use Types Packs/Day Years Used Date Smoking Tobacco: Never Smokeless Tobacco: Never Alcohol Use Standard Drinks/Week Comments Yes 2 (1 standard drink = 0.6 oz pur e alcohol) PHQ-2 Answer Date Recorded PHQ-2 Score 2 08/16/2020 Comments No Sex and Gender Information Value Date Recorded Sex Assigned at Female 03/26/2022 11:03 AM EDT Legal Sex Female 5:33 PM EST Gender Identity Female 03/26/2022 11:03 AM EDT Sexual Orientation Straight 03/26/2022 11 :03 AM EDT documented as of this encounter Last Filed Vital Signs Vital Sign Reading Time Taken Comments Blood Pressure 114/76 08/16/2020 9:11 AM EST Pulse 88 08/16/2020 9:11 AM EST Temperature 36.6 ??C (97.8 ??F) 08/16/2020 9:11 AM ES T Respiratory Rate 14 08/16/2020 9:11 AM EST Oxygen Saturation 97% 08/16/2020 9:11 AM EST Inhaled Oxygen Concentration - - Weight 63.9 kg (140 lb 14 oz) 08/16/2020 9:11 AM EST Height 172 cm (5' 7.72 ) 08/16/2020 9:11 AM EST Body Mass Index 21.6 08/16/2020 9:11 AM EST documented in this encounter Progress Notes * Geovanna Davis MD - 08/16/2020 11:51 AM ESTAssociated Problem(s): Pain of finger of right hand She notes pain, decreased ROM, swelling of single joint R hand, index finger MCP. Discussed furthertesting, XR, labs. She will monitor for now. If her sx worsen, advised to follow up for further testing. * Geovanna Davis MD - 08/16/2020 11:49 AM ESTAssociated Problem(s): Anxiety Reviewed hx,sx, questionnaires. She has done well with Lexapro for her anxiety and OCD. Compliant with rx. +Self care. I advised her to continue with this rx. Will try to add low dose Wellbutrin. Discussed referral to therapy/counseling. Follow up recommended in 4 weeks. I spent 40 minutes face to face in the presence of the patient during visit, >50% of time in counseling and/or coordination of care. * Geovanna Davis MD - 08/16/2020 9:00 AM EST Subjective: Patient ID: Ania Wesley is a 25 y.o. female. Date of Service: 08/16/20 Is this a CM Visit?: (!) Yes Chief Complaint: Chief Complaint Patient presents with ??? Establish Care ??? Anxiety ??? Insomnia ongoing 3-4 months ??? Medication Management unsure if wants to continue Lexapro ??? Hand Pain index finger knuckle on right hand History of Present Illness: NEW PATIENT +CE records- not yet visible Medication review Hx depression/anxiety Family had a bad year- dad lost job, sister was going thru depression/suicidal, multiple family members with serious health issues. Bad relationship breakup- was a 4-5 year relationship. 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 Doing better in the last 1 month- now working on herself more. Trying to exercise, eat better, see friends. Trying not to go to medicine route Started Lexapro 10 mg for OCD issues about 2-3 years now. Has worked well. Now on 15 mg. Has thoughts about counseling- but has not ever done PHQ9=10 GAD7=15 Sleep concerns- 3 mos- was not sleeping well then was taking long naps during the day. Not napping now. Still having problems falling asleep. Some nights will have frequent awakenings still. Watches TV at bedtime. + caffeine- tries not to drink it past 2 pm. Coffee. She was taking otc Zzz sleep. R index MCP recently painful with use +swelling. Patient Active Problem List Diagnosis ??? Routine general medical examination at a health care facility ??? Anxiety ??? Current moderate episode of major depressive disorder without prior episode (CMS/HCC) ??? OCD (obsessive compulsive disorder) ??? Pain of finger of right hand Past Medical History: Diagnosis Date ??? Anxiety [...] Sexual activity: Yes Partners: Male control/protection: OCP Lifestyle ??? Physical activity Days per week: Not on file Minutes per session: Not on file ??? Stress: Not on file Relationships ??? Social connections Talks on phone: Not on file Gets together: Not on file Attends hoahaoism service: Not on file Active member of [...] Social History Narrative ??? Not on file Outpatient Medications Prior to Visit Medication Sig Dispense Refill ??? SRONYX 0.1-20 mg-mcg per tablet Take 1 tablet by mouth daily. ??? escitalopram oxalate (LEXAPRO) 10 MG tablet Take 15 mg by mouth daily. ??? GENERIC CONTROL, SPECIFIC, No facility-administered medications prior to visit. The following portions of the patient's history were reviewed and updated as appropriate: medications, allergies, past medical history, family history, social history, surgical history, current problems. All of the patient's ROS was normal except as documented in the HPI. Review of Systems: All systems reviewed and negative unless previously mentioned in the HPI. ROS Objective: BP 114/76 (BP Location: Left upper arm, BP Position: Sitting, Cuff Size: Medium) Pulse 88 Temp 97.8 ??F (36.6 ??C) (Oral) Resp 14 Ht 1.72 m (5' 7.72 ) Wt 63.9 kg (140 lb 14 oz) LMP 08/09/2020 (Exact Date) SpO2 97% BMI 21.60 kg/m?? BP Readings from Last 2 Encounters: 08/16/20 114/76 05/14/16 120/71 Wt Readings from Last 1 Encounters: 08/16/20 63.9 kg (140 lb 14 oz) Physical Exam: Constitutional: General Appearance: No [...] F REPORTED DATE 07/16/2019 15:33 LOCATION [address] Outreach PROVIDER(S) ANTONIO PEREZ MD CLIENT ID: [facility] OUTREACH #: [id number] CHART #: [id number] Clinical History: LMP: 07/13/2019 Specimen: THINPREP IMAGED PAP TEST WITH HPV REFLEX, CERVICAL/ENDOCERVICAL CYTOLOGIC DIAGNOSIS Satisfactory for evaluation. NEGATIVE FOR INTRAEPITHELIAL LESION OR MALIGNANCY ELECTRONICALLY SIGNED BY [employer] NOTE: The Pap test is a screening test designed to aid in the detection of premalignant and malignant conditions of the uterine cervix. It should not be used as the sole means of detecting cervical cancer. Both false positive and false negative results occur. Performing Lab (unless otherwise specified): [place], [place] [id number] [place] [address] [employer] Category: NEG for DEBBY No visits with results within 3 Month(s) from this visit. Latest known visit with results is: Hospital Outpatient Visit on 07/15/2019 Component Date Value ??? Gynecologic Cytology 07/15/2019 Value: Final Outreach Gynecologic Cytopathology Report PATIENT ANIA WESLEY PROCEDURE DATE 07/15/2019 1995 RECEIPT DATE 07/15/2019 23:20 AGE / SEX 24 Y / F REPORTED DATE 07/16/2019 15:[address] Outreach PROVIDER(S) ANTONIO PEREZ MD CLIENT ID: [facility] OUTREACH #: 0 CHART #: [id number] Clinical History: LMP: 07/13/2019 Specimen: THINPREP IMAGED PAP TEST WITH HPV REFLEX, CERVICAL/ENDOCERVICAL CYTOLOGIC DIAGNOSIS Satisfactory for evaluation. NEGATIVE FOR INTRAEPITHELIAL LESION OR MALIGNANCY ELECTRONICALLY SIGNED BY [employer] NOTE: The Pap test is a screening test designed to aid in the detection of premalignant and malignant conditions of the uterine cervix. It should not be used as the sole means of detecting cervical cancer. Both false positive and false negative results occur. Performing Lab (unless otherwise specified): [place] [address] [facility] [employer] Category: NEG for DEBBY Assessment and Plan: 1. Anxiety 2. Current moderate episode of major depressive disorder without prior episode (CMS/HCC) 3. Mixed obsessional thoughts and acts 4. Pain of finger of right hand Problem List Items Addressed This Visit Anxiety - Primary Reviewed hx,sx, questionnaires. She has done well with Lexapro for her anxiety and OCD. Compliant with rx. +Self care. I advised her to continue with this rx. Will try to add low dose Wellbutrin. Discussed referral to therapy/counseling. Follow up recommended in 4 weeks. I spent 40 minutes face to face in the presence of the patient during visit, >50% of time in counseling and/or coordination of care. Relevant Medications buPROPion XL (WELLBUTRIN XL) 150 MG 24 hr tablet escitalopram oxalate (LEXAPRO) 10 MG tablet Other Relevant Orders Referral to Psychology Current moderate episode of major depressive disorder without prior episode (CMS/HCC) Relevant Medications buPROPion XL (WELLBUTRIN XL) 150 MG 24 hr tablet escitalopram oxalate (LEXAPRO) 10 MG tablet Other Relevant Orders Referral to Psychology OCD (obsessive compulsive disorder) Relevant Medications buPROPion XL (WELLBUTRIN XL) 150 MG 24 hr tablet escitalopram oxalate (LEXAPRO) 10 MG tablet Other Relevant Orders Referral to Psychology Pain of finger of right hand She notes pain, decreased ROM, swelling of single joint R hand, index finger MCP. Discussed furthertesting, XR, labs. She will monitor for now. If her sx worsen, advised to follow up for further testing. Orders Placed This Encounter Procedures ??? Referral to Psychology Requested Prescriptions Signed Prescriptions Disp Refills ??? buPROPion XL (WELLBUTRIN XL) 150 MG 24 hr tablet 30 tablet 2 Sig: Take 1 tablet (150 mg total) by mouth every morning. ??? escitalopram oxalate (LEXAPRO) 10 MG tablet 45 tablet 5 Sig: Take 1.5 tablets (15 mg total) by mouth daily. Follow-Up: Return in about 4 weeks (around 09/13/2020) for Depression/anxiety follow up PRAVIN- 7, PHQ-9. Patient Goals: Goals None Patient Instructions : There are no Patient Instructions on file for this visit. * Geovanna Davis MD - 08/15/2020 8:46 PM ESTAssociated Problem(s): Routine general medical examination at a [...] Associated Diagnoses Orde r Schedule Referral to Psychology Outpatient Referral Routine Anxiety Current Moderate Episode Of Major Depressive Disorder Without Prior Episode (Cms/Hcc) Mixed obsessional thoughts and acts Ordered: 08/16/2020 documented as of this encounter Visit Diagnoses Diagnosis Anxiety- Primary Anxiety state, unspecified Current moderate episode of major depressive disorder without prior episode (CMS/HCC) Mixed obsessional thoughts and acts Pain of finger of right hand documented in this encounter Additional Health Concerns Assessment Noted Time PHQ-9 Depression Total Score: 10 021 10:00 AM EST documented as of this encounter Care Teams Operations Dispatcher Relationship Specialty Start Date End Date Geovanna Davis MD [address] [place] [id number] PCP - General Internal Medicine 08/16/20 documented as of this encounter
--- OUTSIDE RECORDS SUMMARY | 2024-06-18 11:51 | XMS_ITS | Encounter Summary ---
Author Organization [facility] Address [address] [place] [address] Care Team Providers Care Developmental Therapist Name Role Phone Geovanna Davis MD Primary Care Provider + [phone] Reason for Visit * Reason Onset Date Comments Anxiety 08/25/2020 Encounter Details Date Type Department Care Team (Late st Contact Info) Description 08/25/2020 Telephone [facility] Primary Care-[address] [address] Zeb Yanes MA Anxiety Social History Tobacco Use Types Packs/Day [...] encounter Miscellaneous Notes * Telephone Encounter - Zeb Yanes MA - 08/25/2020 12:46 PM EST Patient called and left a voicemail today 08/25/2020 at 12:10 PM stating that she was recently seen by has been prescribed Wellbutrin. Patient believes she may be experiencing really bad sideeffects to the medication. She is stating she is having rapid heart rate, chest tightness, trimmers, loss of appetite. And increase in anxiety. Patient states she has been crying more frequently now. Please advise Contact: * Telephone Encounter - Janay Ricks RN - 08/25/2020 12:46 PM EST Spoke with patient at this time. States that she was started on Wellbutrin about 2 weeks ago. States that since this time she feels that her appetite has significantly decreased. Also feels that she has slight tremor or what she describes as shakiness. Patient reports that pharmacist told her that a side effect of this medication is also heart racing. States she doesn't know if this is happening as she has severe anxiety and this was happening before. Patient reports that she does feel sadderthan she was before taking Wellbutrin. Patient does not report any SI/HI. PCP has no availability today and is OOO tomorrow. Scheduled patient for today with Dr. Grimaldo for evaluation. Thank you, Janay Roberts RN documented in this encounter Plan of Treatment Not on file documented as of this encounter Visit Diagnoses Not on filedocumented in this encounter Additional Health Concerns Assessment Noted Time PHQ-9 Depression Total Score: 20 021 3:00 PM EST documented as of this encounter Care Teams Developmental Therapist Relationship Specialty Start Date End Date Geovanna Davis MD [address] [place] [id number] PCP - General Internal Medicine 08/16/20 documented as of this encounter
--- OUTSIDE RECORDS SUMMARY | 2024-06-18 11:51 | XMS_ITS | Encounter Summary ---
Author Organization [facility] Address [address] [place] [address] Care Team Providers Care Timing Machine Operator Name Role Phone Geovanna Davis MD Primary Care Provider + [phone] Health, Virtual Behavioral Unavailable + [phone] Reason for Visit * Reason Comments Anxiety appetite is better b ut not 100%, shaking has resolved Insomnia Encounter Details Date Type Department Care Team (Late st Contact Info) Description 09/01/2020 11:45 AM EST Office Visit [facility]-[address] [place] [address] Fatimah Grimaldo MD [address] [facility] [address] [place] [address] Anxiety (Primary Dx); Current moderate episode of major depressive disorder without prior episode (CMS/HCC) Social History Tobacco Use Types Packs/Day Years [...] Sign Reading Time Taken Comments Blood Pressure 114/72 09/01/2020 11:45 AM EST Pulse 88 09/01/2020 11:45 AM EST Temperature 36.9 ??C (98.4 ??F) 09/01/2020 11:[address] Respiratory Rate 14 09/01/2020 11:45 AM EST Oxygen Saturation 95% 09/01/2020 11:45 AM EST Inhaled Oxygen Concentration - - Weight 63.1 kg (139 lb 1.8 oz) 09/01/2020 11:45 AM EST Height 172 cm (5' 7.72 ) 09/01/2020 11:45 AM EST Body Mass Index 21.33 09/01/2020 11:45 AM EST documented in this encounter Progress Notes * Fatimah Grimaldo MD - 09/01/2020 5:42 PM ESTAssociated Problem(s): Anxiety Patient is doing better off Wellbutrin but still having anxiety and depression symptoms. I increased her Lexapro to 20 mg daily and strongly encouraged her to follow-up with her PCP. She can take hydroxyzine as needed including as needed for sleep in the short run but does need to talk about treatment options with her doctor. She will continue [facility] and follow-up with a psychologist in September. * Fatimah Grimaldo MD - 09/01/2020 11:45 AM EST Subjective: Patient ID: Jeannine Keene is a 25 y.o. female. Is this a Visit?: No Chief Complaint: Anxiety (appetite is better but not 100%, shaking has resolved) and Insomnia History of Present Illness: HPI Pt here in follow up of her recent OV for side effects from wellbutrin. Stopped medication, feelingbetter from a side effect standpoint. Reports still having signficant anxiety and depressive symptoms. Reports appetite back, eating better, reports still skipping meals. Reports she had telemedicinevisit and it went well. Reports that she has a referral to psychology and upcoming appointment in late September. Reports that she still feels depression and anxiety symptoms, reports that she feels she does need additional medication. The following portions of the patient's history were reviewed and updated as appropriate: medications, allergies, past medical history, family history, social history, surgical history, current problems. All of the patient's ROS was normal except as documented in the HPI. Outpatient Medications Prior to Visit Medication Sig Dispense Refill ??? SRONYX 0.1-20 mg-mcg per tablet Take 1 tablet by mouth daily. ??? escitalopram oxalate (LEXAPRO) 10 MG tablet Take 1.5 tablets (15 mg total) by mouth daily. 45 tablet 5 ??? hydrOXYzine (ATARAX) 50 MG tablet Take 1 tablet (50 mg total) by mouth 3 (three) times a day asneeded for up to 10 days. 30 tablet 0 No facility-administered medications prior to visit. Review of Systems Objective: BP 114/72 (BP Location: Left upper arm, BP Position: Sitting, Cuff Size: Medium) Pulse 88 Temp 98.4 ??F (36.9 ??C) (Oral) Resp 14 Ht 1.72 m (5' 7.72 ) Wt 63.1 kg (139 lb 1.8 oz) LMP 08/09/2020 (Exact Date) SpO2 95% BMI 21.33 kg/m?? Physical Exam Constitutional: General: She is not in acute distress. Appearance: She is well-developed. She is not diaphoretic. HENT: Head: Normocephalic and atraumatic. Pulmonary: Effort: Pulmonary effort is normal. No respiratory distress. Neurological: Mental Status: She is alert. Psychiatric: Mood and Affect: Mood is anxious. Behavior: Behavior normal. Assessment: 1. Anxiety 2. Current moderate episode of major depressive disorder without prior episode (CMS/[facility]) Anxiety Patient is doing better off Wellbutrin but still having anxiety and depression symptoms. I increased her Lexapro to 20 mg daily and strongly encouraged her to follow-up with her PCP. She can take hydroxyzine as needed including as needed for sleep in the short run but does need to talk about treatment options with her doctor. She will continue [facility] and follow-up with a psychologist in September. Plan: Medications Ordered This Encounter Medications ??? escitalopram oxalate (LEXAPRO) 20 MG tablet Sig: Take 1 tablet (20 mg total) by mouth daily. Dispense: 30 tablet Refill: 0 ??? hydrOXYzine (ATARAX) 50 MG tablet Sig: Take 1 tablet (50 mg total) by mouth 3 (three) times a day as needed for up to 10 days. Dispense: 15 tablet Refill: 0 Goals None Follow-Up: Return for 2-4 week with PCP discuss anxiety and depression. documented in this encounter Plan of Treatment Not on file documented as of this encounter Visit Diagnoses Diagnosis Anxiety- Primary Anxiety state, unspecified Current moderate episode of major depressive disorder without prior episode (CMS/[facility]) documented in this encounter Additional Health Concerns Assessment Noted Time PHQ-9 Depression Total Score: 17 021 12:00 PM EST documented as of this encounter Care Teams Timing Machine Operator Relationship Specialty Start Date End Date Geovanna Davis MD [address] [place] [address] [place] [phone] PCP - General Internal Medicine 08/16/20 [facility], [facility] [address] [place] [address], [address] [place] [address] Flat Sheet MakerCertified Flight Instructor Health 08/31/20 documented as of this encounter
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
--- OUTSIDE RECORDS SUMMARY | 2024-06-18 11:52 | XMS_ITS | Clinical Summary ---
Author Organization [facility] Address [address] [place] [id number] Phone [phone] Care Team Providers Care Typists Supervisor Name Role Phone Unavailable Primary Care Provider Unavailabl e Allergies Active Allergy Reactions Criticality Noted Date Comments Sulfa Antibiotics 04/03/2024 Medications escitalopram (Lexapro) 20 MG tablet 03/25/2024 Active hydrOXYzine HCl (Atarax) 50 MG tablet 03/06/2024 Active levonorgestrel- ethinyl estradiol (Sronyx) 0.1-20 MG-MCG tablet Take 1 tablet by mouth 1 (one) time each day. 11/06/2017 Active pregabalin (Lyrica) 25 MG capsule 02/18/2024 Active albuterol 108 (90 Base) MCG/ACT inhalerIndicati ons:Bronchitis Inhale 2 puffs in the morning and 2 puffs at noon and 2 puffs in the evening and 2 puffs before bedtime. 18 g 04/03/2024 Active Active Problems No known active problems Encounters Date Type Department Care Team Description 04/03/2024 7:00 PM EDT Office Visit [address] [facility] [address] [place] [address] Kaleigh Ly PA Bronchitis (Primary Dx) 04/03/2024 Travel from Last 3 Months Social History Tobacco Use Types Packs/Day Years Used Date Smoking Tobacco: Never Smokeless Tobacco: Never Tobacco Cessation:Counseling Given: Not Answered Comments No Sex and Gender Information Value Date Recorded Sex Assigned at Not on file Legal Sex Female 6:04 PM EDT Gender Identity Not on file Sexual Orientation Not on file Last Filed Vital Signs Vital Sign Reading Time Taken Comments Blood Pressure 127/86 04/03/2024 6:22 PM EDT Pulse 90 04/03/2024 6:22 PM EDT Temperature 36.6 ??C (97.9 ??F) 04/03/2024 6:22 PM ED T Respiratory Rate 18 04/03/2024 6:22 PM EDT Oxygen Saturation 98% 04/03/2024 6:22 PM EDT Inhaled Oxygen Concentration - - Weight 72.6 kg (160 lb) 04/03/2024 6:22 PM EDT Height 167.6 cm (5' 6 ) 04/03/2024 6:22 PM EDT Body Mass Index 25.82 04/03/2024 6:22 PM EDT Plan of Treatment Health Maintenance Due Date Last Done Comments Pap Smear 01/30/2017 Influenza Vaccine (#1) 2024 Insurance [employer]
--- OUTSIDE RECORDS SUMMARY | 2024-06-18 11:52 | XMS_ITS | Encounter Summary ---
Author Organization [facility] Address [address] [place] [id number] Phone [phone] Care Team Providers Care Traffic Sergeant Name Role Phone Unavailable Primary Care Provider Unavailabl e Encounter Details Date Type Department Care Team (Latest Contact Info) Description 04/03/2024 Travel Social History Tobacco Use Types Packs/Day [...]
--- OUTSIDE RECORDS SUMMARY | 2024-06-18 11:52 | XMS_ITS | Referral Summary ---
Author Organization [facility] Address [address] [place] [phone] Phone [phone] Care Team Providers Care Executive Casino Host Name Role Phone Unavailable Primary Care Provider Unavailabl e Encounters Date Type Department Care Team Description 04/03/2024 Travel 04/03/2024 7:00 PM EDT Office Visit [address] [place] [address] Kaleigh Ly PA Bronchitis (Primary Dx) from Last 3 Months Allergies Active Allergy Reactions Criticality Noted Date [...] Active Active Problems No known active problems Social History Tobacco Use Types Packs/Day Years [...] 04/03/2024 6:22 PM EDT Plan of Treatment Not on file Insurance [employer]
--- OUTSIDE RECORDS SUMMARY | 2024-06-18 11:52 | XMS_ITS | Encounter Summary ---
Author Organization [facility] Address [address] [place] [address] Phone [phone] Care Team Providers Care Pepper Picker Name Role Phone Unavailable Primary Care Provider Unavailabl e Reason for Visit * Reason Comments Nasal Congestion Encounter Details Date Type Department Care Team (Late st Contact Info) Description 04/03/2024 7:00 PM EDT Office Visit [address] [facility] [address] [place] [address] Kaleigh Ly PA [address] [place] [address] Bronchitis (Primary Dx) Social History Tobacco Use Types [...] Mass Index 25.82 04/03/2024 6:22 PM EDT documented in this encounter Patient Instructions * Patient Instructions* GARY Mccormack - 04/03/2024 7:00 PM EDT You have been prescribed a steroid. Please take it in the exact way prescribed for you. You may experience increased appetite, insomnia, agitation, headaches, dizziness, changes in mood, increased sweating and fatigue. These are only some of the possible side effects which should resolve when you are done taking it. Doxycycline is a photosensitive drug. Please wear sunscreen while taking. Please take all vitamins at least 4 hours apart from the doxycycline as they can interfere with absorption. See your PCP for persistent symptoms or go to the emergency room if symptoms become more severe. * Attachments The following attachments cannot be sent through Care Everywhere. * Acute bronchitis (Bhutanese) documented in this encounter Progress Notes * Teresa Hancock MA - 04/03/2024 7:00 PM EDT Pt complains of congestion and cough x3wks. Pt says OTC med have not helped. Pt says she is also lethargic. * GARY Mccormack - 04/03/2024 7:00 PM EDT Subjective Patient ID: Jeannine Keene is a 29 y.o. female. 29 year old female complains of deep productive cough for 3.5 weeks. 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 History provided by: Patient car pusher used: No Review of Systems Constitutional: Positive for fatigue. Negative for chills and fever. HENT: Negative for congestion, ear pain, facial swelling, postnasal drip, rhinorrhea, sinus pressure, sinus pain, sore throat and trouble swallowing. Respiratory: Positive for cough, chest tightness and shortness of breath. Negative for wheezing. Cardiovascular: Negative for chest pain and palpitations. Gastrointestinal: Negative for abdominal pain, nausea and vomiting. Musculoskeletal: Negative for myalgias. Allergic/Immunologic: Negative for immunocompromised state. Patient History Allergies: Allergies Allergen Reactions Sulfa Antibiotics Past Medical History: Diagnosis Date Anxiety History reviewed. No pertinent surgical history. Social History Socioeconomic History Marital status: Not on file Spouse name: Not on file Number of children: Not on file Years of education: Not on file Highest education level: Not on file Occupational History Not on file Tobacco Use Smoking status: Never Smokeless tobacco: Never Vaping Use Vaping status: Never Used Substance and Sexual Activity Alcohol use: Not on file Drug use: Not on file Sexual activity: Not on file Other Topics Concern Not on file Social History Narrative Not on file History reviewed. No pertinent family history. Current Outpatient Medications on File Prior to Visit Medication Sig Dispense Refill escitalopram (Lexapro) 20 MG tablet hydrOXYzine HCl (Atarax) 50 MG tablet levonorgestrel-ethinyl estradiol (Sronyx) 0.1-20 MG-MCG tablet Take 1 tablet by mouth 1 (one) time each day. pregabalin (Lyrica) 25 MG capsule No current facility-administered medications on file prior to visit. Objective Vitals: 04/03/24 1822 BP: 127/86 Pulse: 90 Resp: 18 Temp: 36.6 ??C (97.9 ??F) TempSrc: Oral SpO2: 98% Weight: 72.6 kg Height: 5' 6 PainSc: 0-No pain OBGYN/ Status: Implant No results found. Physical Exam Vitals and nursing note reviewed. Constitutional: General: She is not in acute distress. Appearance: Normal appearance. She is not toxic-appearing. HENT: Head: Normocephalic and atraumatic. Right Ear: Tympanic membrane, ear canal and external ear normal. Left Ear: Tympanic membrane, ear canal and external ear normal. Nose: No congestion or rhinorrhea. Mouth/Throat: Pharynx: No oropharyngeal exudate or posterior oropharyngeal erythema. Eyes: Extraocular Movements: Extraocular movements intact. Pupils: Pupils are equal, round, and reactive to light. Cardiovascular: Rate and Rhythm: Normal rate and regular rhythm. Pulmonary: Effort: Pulmonary effort is normal. No respiratory distress. Breath sounds: No stridor. Rales present. Wheezes: all lung holland. Chest: Chest wall: No tenderness. Musculoskeletal: Cervical back: Neck supple. Neurological: General: No focal deficit present. Mental Status: She is alert and oriented to person, place, and time. Psychiatric: Mood and Affect: Mood normal. Behavior: Behavior normal. Thought Content: Thought content normal. Judgment: Judgment normal. No results found for this visit on 04/03/24. Procedures MDM: 1 Acute, uncomplicated illness or injury Explanation of Medical Decision Making and variances from expected care: Given a duoneb treatment and felt much better. Auscultation of lungs post neb reveals clear all holland. See PCP no better after this treatment regimen. Assessment requiring historian other than patient: No Independent visualization of image, tracing, or test: No Discussion of management with another provider: No Risk:: Moderate Assessment/Plan Diagnoses and all orders for this visit: Bronchitis - ipratropium-albuterol (Duo-Neb) 0.5-2.5 mg/3 mL nebulizer solution 3 mL - doxycycline (Vibramycin) 100 MG capsule; Take 1 capsule (100 mg total) by mouth in the morning and 1 capsule (100 mg total) in the evening. Do all this for 10 days. Take with at least 8 ounces (large glass) of water, do not lie down for 30 minutes after. - predniSONE (Deltasone) 20 MG tablet; Take 1 tablet (20 mg total) by mouth in the morning and 1 tablet (20 mg total) in the evening. Do all this for 5 days. - albuterol 108 (90 Base) MCG/ACT inhaler; Inhale 2 puffs in the morning and 2 puffs at noon and 2 puffs in the evening and 2 puffs before bedtime. Disposition Status: Home Progress note signed by GARY Mccormack on 04/03/24 at 6:56 PM documented in this encounter Plan of Treatment Not on file documented as of this encounter Visit Diagnoses Diagnosis Bronchitis- Primary Bronchitis, not specified as acute or chronic documented in this encounter Administered Medications Inactive Administered Medications - up to 3 most recent administrations Medication Order MAR Action Action Date Dose Rate Site ipratropium-albuterol (Duo-Neb) 0.5-2.5 mg/3 mL nebulizer solution 3 mL 3 mL, Nebulization, Once, On Sat04/03/24 at 1845, For 1 doseIndications:Bronchitis Given 04/03/2024 6:41 PM EDT 3 mL documented in this encounter
--- OUTSIDE RECORDS SUMMARY | 2024-06-18 12:14 | XMS_ITS | Encounter Summary ---
Author Organization [facility] Address [address] [place] [address] Care Team Providers Care Software Trainer Name Role Phone Yvonne Reyes MD Primary Care Provider Isaiah ayers Reason for Visit * Reason Comments Abdominal Pain sharp pain in stomac h every 15 seconds, acid in throat, upper middle Encounter Details Date Type Department Care Team (Late st Contact Info) Description 05/29/2019 10:15 AM EST Office Visit [facility] [address] [facility] [address] Ananth Singh, [facility] [address] [facility] [facility] [address] [place] [address] Nausea without vomiting (Primary Dx); Intermittent left [...] Portions of this note were dictated using [employer] voice recognition software. Please disregard any errors in teacher drama. 1. 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 She denies blood [...] pain documented in this encounter Care Teams Software Trainer Relationship Specialty Start Date End Date Yvonne Reyes MD PCP - General Internal Medicine 11/21/17 12/19/20 documented as of this encounter
--- OUTSIDE RECORDS SUMMARY | 2024-06-18 12:14 | XMS_ITS | Encounter Summary ---
Author Organization [facility] Address [address] [facility] [place] [address] Care Team Providers Care Tableau Analyst Name Role Phone Yvonne Reyes MD Primary Care Provider Isaiah ayers Reason for Visit * Reason Comments Medication Refill Encounter Details Date Type Department Care Team (Late st Contact Info) Description 11/17/2018 10:15 AM EDT Office Visit [facility] [address] [facility] [address] [place] [address] Yvonne Reyes MD Anxiety (Primary Dx) Social [...] Written by the doctors and editors at [facility] What is syncope???--?? Syncope is the medical [...] process is complete. This topic retrieved from [employer] on: Jul 08, 2018. Topic 29232 Version 10.0 Release: 26.5.5 - C27.6 ?2019??UpToDate, [...] the electrical activity in the heart. Graphic 67186 Version 2.0 figure 2: Transthoracic echocardiogram (echo) [...] the electrical activity of the heart. Graphic 71710 Version 4.0 figure 3: Holter monitor People [...] or certain times of the day. Graphic 77470 Version 8.0 figure 4: Cardiac event recorder An event recorder is a portable device patients can use to measure their heart rhythm for a short time. The patient must activate the recorder and hold it to the chest when they feel symptoms. It is useful for patients that have intermittent symptoms that may not be captured with other forms of testing. Graphic 78302 Version 4.0 figure 5: Tilt table test During a tilt table test, a doctor or nurse tilts your body at different angles. At the same time, he or she monitors your blood pressure and your heart's electrical activity. Your body's response tothe changes in position can help your doctor or nurse figure out what, if anything, is wrong with your heart. Graphic 52280 Version 5.0 Consumer Information Use and Disclaimer [...] that is right for you.The use of [employer] content is governed by the [employer] Terms of Use. ??2019 [employer]. All rights reserved. Copyright ?2019??[employer] and/or its affiliates.??All rights reserved. 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 Patient's Medications Accurate as of [...] unspecified documented in this encounter Care Teams Tableau Analyst Relationship Specialty Start Date End Date Yvonne Reyes MD PCP - General Internal Medicine 11/21/17 12/19/20 documented as of this encounter
--- OUTSIDE RECORDS SUMMARY | 2024-06-18 12:14 | XMS_ITS | Data Portability ---
Author Organization [place] - [facility], 1- [facility] Address [address] [place] [address] Care Team Providers Care Tire Recapping Machine Operator Name Role Phone LANDEN PEREZ Primary Care Provider Assessment Encounter Date Assessment Date Assessment LastModified by Organization Details LastModified Time 06/13/2023 06/13/2023 Impression: Righ t shoulder AC joint sprain. My impression along with the physical exam/radiographic findings were discussed at length with the patient. Recommendations are as followed: Plan: 1. Patient was given a shoulder sling for comfort to wear over the next 2 weeks. 2. She was provided with a work note for no heavy lifting with the right arm and to try and limit use of the right arm until further notice. We discussed other conservative measures such as ice, elevating, using Tylenol and ibuprofen as needed for pain and inflammation. 3. She will follow-up in 2 weeks with Viviane Sinclair for further evaluation and management. All comments and questions were addressed during today's visit. The pt has no further concerns at this time. They understand and agree with the above plan of care. Independent evaluation, plan and dictation performed by: Ezra Villarreal PA-C. [email or web address] Not available 06/13/2023 18:29:51 06/25/2023 06/25/2023 ASSESSMENT Right shoulder mild to moderate grade AC joint separation. PLAN I discussed the findings with the patient today. We discussed that this is a low to medium grade injury and certainly not one that I think will necessitate operative intervention. She can wean out of her sling at this time. She can gradually begin to start resuming regular activities with the avoidance of heavy lifting. Okay for full range of motion. The patient will follow up in 6 weeks' time for repeat clinical check. ATTESTATION: This note has been generated by Diana WALLACE and edited by Alexys Chris V Quality Construction Technician. [email or web address] Not available 06/25/2023 15:07:07 08/06/2023 08/06/2023 ASSESSMENT: Right shoulder mild to moderate grade AC joint separation. PLAN: I discussed findings with the patient today. I encouraged her that I think her pain will continue to subside over time. AC joint palpably feels to be relatively stable today on examination. We discussed that it can sometimes be a few months before pain dramatically subsides. I will plan to see her back in 6 weeks' time. If she continues to have substantial pain there, we will repeat her x-rays and we will plan to do a subacromial corticosteroid injection if indicated. ATTESTATION:?? This note has been generated by Diana WALLACE and edited by Chapo Infante, Quality Construction Technician. [email or web address] Not available 08/06/2023 13:14:34 Plan of Treatment Reminders Order Date Submit Date Provider Last Modified By Organization Details Last Modified Time Details Appointments None record ed. Lab None record ed. Referral None record ed. Procedures None record ed. Surgeries None record ed. Imaging None record ed. Medication Orders None record ed. Patient TargetsNo targets recorded. Patient InstructionsNo instructions recorded. Reason for Referral None Reported. Problems Name Problem SNOMED Code Status Onset Date Resolution Date Notes Provider Name and Address Organization Details Recorded Time Sprain of right acromioclav icular ligament 7909537452537 9104 Active 2022 Cherelle Munguia PA-C [address] [place], [address], [facility] 3 18:12:28 Dislocation of acromioclav icular joint 648076638 Active 2022 Jake Ba MD [address] [place], [address], [facility] 3 11:37:33 Problem Notes None recorded. Procedures Surgical History Date Name Laterality Status Provider Name and Address Organization Details Recorded Time 7 HEENT Surgery completed Not Available Epi 06/13/2023 16:49:32 Imaging Results None recorded. Procedure Notes None recorded. Medical Equipment None Reported. Allergies Allergen ID Allergen Name Allergen Category Reaction Reaction Severity Criticality Documentation Date Start Date Code Code System Note Provider Name and Address Organization Details Recorded Time [id number] Substance with sulfonami de structure and antibacte rial mechanism of action (substanc e) medicatio n hives Not available Not available 06/13/2023 36469 8003 SNOMED Not Available Not Available Not Available [id number] 29b50 Wellbutri n medicatio n other Not available Not available 06/13/2023 20605 RxNorm Not Available Not Available Not Available Medications Name Sig Start Date Stop Date Status Note LastModified by Organization Details LastModified Time fluconazole 150 mg tablet active Not Available Not Availabl e Not Available hydroxyzine HCl 50 mg tablet active Not Available Not Available Not Available buspirone 10 mg tablet active Not Available Not Available No t Available escitalopram 20 mg tablet active Not Available Not Available Not Available pregabalin 25 mg capsule active Not Available Not Available N ot Available buspirone active Not Available Not Pinky ilable Not Available pregabalin active Not Available Not Av ailable Not Available Vitals None Recorded Social History Question Answer Notes LastModified by Organizat ion Details LastModified Time Tobacco Smoking Status Never Smoker Not Available Epion 06/13/2023 16:49:32 Do You Have An Advance Directive? No [email or web address] Information not available 06/13/2023 What Is Your Level Of Alcohol Consumption? 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 Right [email or web address] Information not available 06/13/2023 Would You Like To Be Contacted For A Clinical Research Trial? No [email or web address] Information not available 06/13/2023 Do You Have A Medical Power Of Director Business Systems? No [email or web address] Information not available 06/13/2023 How Much Tobacco Do You Smoke? No [email or web address]-13 Information not available 06/13/2023 Sex: Female Functional Status None recorded. Mental Status None recorded. Family History Nothing Reported. Medical History Condition Response Anxiety Disorder Y ADD/ADHD Y Depression Y Gynecological HistoryNo gynecological history recorded. Obstetrics History GPAL:G 0 P 0 0 0 0 Past Encounters Encounter ID Performer Location Encounter Start Date Encounter Closed Date Diagnosis/Indication Diagnosis SNOMED-CT Code Diagnosis ICD10 Code [id number] Cherelle Munguia PA-C [facility] [address] [place] [address] 06/13/2023 16:38:54 06/13/2023 18:37:43 Sprain of right acromioclavicular ligament [id number] S43.51XA [id number] Jake Ba MD [facility] [address] [place] [address] 06/25/2023 11:23:36 06/25/2023 11:52:29 Dislocation of acromioclavicular joint 252071894 S43.101A [id number] Jake Ba MD [facility] [address] [place] [address] 08/06/2023 11:22:06 08/06/2023 11:58:58 Dislocation of acromioclavicular joint 900575771 S43.101D Health Concerns Section Related Observation LastModified by Organization Detai ls LastModified Time None Recorded Concern Status LastModified by Organization Details LastModified Time None Recorded Advance Directives Directive N: Payers Encounter Date Sequence Insurance Name Policy Number Policy Davis Covered Member ID Davis Member ID Guarantor Name 06/13/2023 1 [facility] [id number] Jeannine Keene [id number] 1 Jeannine Keene 06/25/2023 1 [facility] [id number] Jeannine Keene [id number] 1 Jeannine Keene 08/06/2023 1 [facility] [id number] Jeannine Keene [id number] 1 Jeannine Keene Notes Date Note Type Note Provider Name and Address Organization Details Recorded Time 06/13/2023 text/html Chief complaint: Right shoulder pain. HPI: Ms. Keene is a pleasant 28-year-old female here for evaluation management of right shoulder pain. She states that earlier today she fell off of her horse directly on to her right shoulder. Since this time she has noticed extreme pain throughout the shoulder and inability to move it. She feels as though that the shoulder is dislocated currently. She has no other concerns at this time. Cherelle Munguia PA-C [address] [place], [address], [facility] 06/13/2023 18:30:48 06/25/2023 text/html Ms. Jeannine mathur is a 28-year-old female who presents to see me today due to a right shoulder separation sustained on 06/13/2023 after she fell off a horse. Overall, she is doing fairly well at the present time. The pain is reducing. She still cannot support herself with that arm. She is trying to do a plane core push-up. Jake Ba MD [address] [place], [address], [facility] 06/25/2023 15:51:00 08/06/2023 text/html Date of injury: 06/13/2023. The patient is a 28-year-old female who returns to see me today in follow-up in the setting of prior right AC joint separation. She is roughly 8 weeks post injury. She notes things got tremendously better a week or two after the injury, but she feels like she has plateaued, and still has some issues when she is doing more forceful maneuvers with the arm. She also has fairly significant pain at times when she is sleeping on that side. Jake Ba MD [address] [place], [address], [facility] 08/09/2023 11:07:13 OBGyn Episode No OBEpisode recorded.
--- OUTSIDE RECORDS SUMMARY | 2024-06-18 12:14 | XMS_ITS | Encounter Summary ---
Author Organization [facility] Address [address] [facility] [place] [address] Care Team Providers Care Railcar Brake Operator Name Role Phone Yvonne Reyes MD Primary Care Provider sIaiah ayers Encounter Details Date Type Department Care [...] on filedocumented in this encounter Care Teams Railcar Brake Operator Relationship Specialty Start Date End Date Yvonne Reyes MD PCP - General Internal Medicine 11/21/17 12/19/20 documented as of this encounter
--- OUTSIDE RECORDS SUMMARY | 2024-06-18 12:14 | XMS_ITS | Encounter Summary ---
Author Organization [facility] Address [address] [facility] [place] [address] Care Team Providers Care Automotive Machinist Apprentice Name Role Phone Unavailable Primary Care Provider Unavailabl e Reason for Visit * Reason Comments Gaps In Care Encounter Details Date Type Department Care Team (Late st Contact Info) Description 01/14/2023 Care Coordinates Care Coordinates [address] [address] Janay Robbins Counseling on health promotion and [...] for the upcoming year. UTR and Sent [employer] message with recommendations and contact information. Additional Comments: documented in this encounter Plan of Treatment Not on file documented as of this encounter Visit Diagnoses Diagnosis Counseling on health promotion and disease prevention- Primary Other specified counseling documented in this encounter
--- OUTSIDE RECORDS SUMMARY | 2024-06-18 12:14 | XMS_ITS | Encounter Summary ---
Author Organization [facility] Address [address] [facility] Caterina [facility] [place] [address] Care Team Providers Care Sign Artist Name Role Phone Yvonne Reyes MD Primary Care Provider Isaiah ayers Reason for Visit * Reason Comments Cough prilosec given by EN T- upset stomach Encounter Details Date Type Department Care Team (Late st Contact Info) Description 01/21/2018 9:45 AM EDT Office Visit [facility] [address] [facility] 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
--- OUTSIDE RECORDS SUMMARY | 2024-06-18 12:14 | XMS_ITS | Encounter Summary ---
Author Organization [facility] Address [address] [facility] Caterina [facility] [place] [address] Care Team Providers Care Human Factors Ergonomist Name Role Phone Yvonne Reyes MD Primary Care Provider Isaiah ayers Encounter Details Date Type Department Care Team (Late st Contact Info) Description 01/29/2020 11:30 AM EDT Telemedicine [facility] [address] [facility] 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
--- OUTSIDE RECORDS SUMMARY | 2024-06-18 12:14 | XMS_ITS | Clinical Summary ---
Author Organization [facility] Address [address] [facility] [place] [address] Care Team Providers Care Manager Reimbursement Name Role Phone Unavailable Primary Care Provider [...] Report PATIENT ?ANIA WESLEY Eulalio ?ACCESSION # ?[id number] ?PROCEDURE DATE ?? 07/15/2019 ?1995 ? RECEIPT DATE ? 07/15/2019 ??23:20 AGE / SEX ??24 Y / F ? REPORTED DATE ?07/16/2019 ??15:33 LOCATION ?? [address] Outreach ?PROVIDER(S) ?ANTONIO PEREZ MD CLIENT ID: [facility] OUTREACH #: 0 CHART #: [id number] Clinical History: LMP: 07/13/2019 Specimen: ?? THINPREP [...] Advance Directives For more information, please contact: [phone] Healthcare Agents on File Name Relationship Healthcare Agent Relationshi p Communication Trinity Wesley Mother Hart [phone] (Heather barrow)
--- OUTSIDE RECORDS SUMMARY | 2024-06-18 12:14 | XMS_ITS | Encounter Summary ---
Author Organization [facility] Address [address] [facility] [place] [address] Care Team Providers Care Zipper Repairer Name Role Phone Yvonne Reyes MD Primary Care Provider Isaiah ayers Encounter Details Date Type Department Care Team (Latest Contact Info) Description 11/17/2018 Travel Social History Tobacco Use Types Packs/Day [...] on filedocumented in this encounter Care Teams Zipper Repairer Relationship Specialty Start Date End Date Yvonne Reyes MD PCP - General Internal Medicine 11/21/17 12/19/20 documented as of this encounter
--- OUTSIDE RECORDS SUMMARY | 2024-06-18 12:14 | XMS_ITS | Encounter Summary ---
Author Organization [facility] Address [address] [facility] [place] [place] [address] Care Team Providers Care Medical Technologist Generalist Name Role Phone Yvonne Reyes MD Primary [...] on filedocumented in this encounter Care Teams Medical Technologist Generalist Relationship Specialty Start Date End Date Yvonne Reyes MD PCP - General Internal Medicine 11/21/17 12/19/20 documented as of this encounter
--- OUTSIDE RECORDS SUMMARY | 2024-06-18 12:14 | XMS_ITS | Encounter Summary ---
Author Organization [facility] Address [address] [facility] [address] Care Team Providers Care Pierce And Shave Press Operator Name Role Phone Unavailable Primary Care Provider Unavailabl e Reason for Visit * Reason Comments Gaps In Care Encounter Details Date Type Department Care Team (Late st Contact Info) Description 01/23/2021 Care Coordinates Care Coordinates [address] [address] Gisselle Beckett Social History Tobacco Use Types [...]
--- OUTSIDE RECORDS SUMMARY | 2024-06-18 12:14 | XMS_ITS | Encounter Summary ---
Author Organization [facility] Address [address] [facility] [place] [address] Care Team Providers Care Duplicating Machine Operator Name Role Phone Unavailable Primary Care Provider Unavailabl e Reason for Visit * Reason Comments Establish Care Encounter Details Date Type Department Care Team (Latest Contact Info) Description 05/10/2022 Care Coordinates Care Coordinates [address] [address] Rosa Jackson Counseling and coordination of care [...] for the upcoming year. UTR and Sent [employer] message with recommendations and contact information. documented in this encounter Plan of Treatment Not on file documented as of this encounter Visit Diagnoses Diagnosis Counseling and coordination of care- Primary documented in this encounter
--- OUTSIDE RECORDS SUMMARY | 2024-06-18 12:15 | XMS_ITS | Encounter Summary ---
Author Organization [facility] Address [address] [facility] [place] [address] Care Team Providers Care Wire Drawing Machine Tender Name Role Phone Yvonne Reyes MD Primary Care Provider Isaiah ayers Reason for Visit * Reason Comments Cough Encounter Details Date Type Department Care Team (Late st Contact Info) Description 12/09/2017 3:30 PM EDT Office Visit [facility] [address] [facility] [address] [place] [address] Yvonne Reyes MD Cough (Primary Dx); Anxiety; [...] irregularly (palpitations) Date Last Reviewed: 05/31/2016 ?? [phone] [employer]. [address] [place] [address], [place] [address]. All rights reserved. 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 She has tried Marily and also Flonase. 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 She says this has previously been diagnosed [...] WBC 10.9 4.5 - 11.0 x 10^3/uL [facility] % LYMPH 28.6 25.0 - 40.0 % [facility] MONO % 1.3(A) 4.0 - 12.0 % [facility] % GRAN 70.1 50.0 - 73.0 % [facility] Lymphs Absolute 3.1 1.0 - 4.5 x 10^3/uL [facility] Monos Absolute 0.1 0.1 - 1.0 x 10^3/uL [facility] Grans Absolute 7.6(A) 1.5 - 7.5 x 10^3/uL [facility] RBC 5.47(A) 4.00 - 5.20 x10E6/uL [facility] HGB 15.2(A) 12.0 - 15.0 g/dL [facility] Hematocrit 47.0 35.8 - 47.9 % [facility] MCV 86.0 82.0 - 98.0 fL [facility] MCH 27.9 26.0 - 34.0 pg [facility] MCHC 32.4 31.0 - 37.0 g/dL [facility] RDW 12.6 11.7 - 16.5 % [facility] Platelet Count 322 150 - 400 x 10^3/uL [facility] MPV 9.2 7.1 - 10.5 fL [facility] Blood 12/09/2017 4:53 PM EDT Yvonne Reyes MD POINT OF CARE TEST O RDERABLES [facility] [address] [place] [address] * (ABNORMAL) CMP14+eGFR (12/09/2017 4:06 PM EDT) Glucose 81 65 - 99 mg/dL [facility] 1 BUN 12 6 - 20 mg/dL [facility] 1 Creatinine 0.77 0.57 - 1.00 mg/dL [facility] 1 eGFR If NonAfrican Syrian 111 >59 mL/min/1.7 3 [facility] 1 eGFR [...] PM EDT Performed at: ??01 - [facility] [address] ??[id number] Milled Rice Broker: Aidan Johnson MD, Phone: ??[phone] Yvonne Reyes MD LAB BLOOD ORDERABLES [facility] * TSH (12/09/2017 4:06 PM EDT) TSH 1.130 0.450 - 4.500 uIU/mL [facility] 1 Blood 12/09/2017 4:06 PM EDT 12/09/2017 Narrative [facility] - 12/10/2017 5:39 AM EDT Performed at: ??01 - [facility] [address] ??[id number] Milled Rice Broker: Aidan Johnson MD, Phone: ??[phone] Yvonne Reyes MD LAB BLOOD ORDERABLES [facility] 1 documented in this encounter Visit Diagnoses Diagnosis Cough- Primary Anxiety Anxiety state, unspecified Syncope, vasovagal documented in this encounter Care Teams Wire Drawing Machine Tender Relationship Specialty Start Date End Date Yvonne Reyes MD PCP - General Internal Medicine 11/21/17 12/19/20 documented as of this encounter
--- OUTSIDE RECORDS SUMMARY | 2024-06-18 12:15 | XMS_ITS | Encounter Summary ---
Author Organization [facility] Address [address] [facility] [place] [address] Care Team Providers Care Recruiting And Selection Consultant Name Role Phone Yvonne Reyes MD Primary Care Provider Isaiah ayers Encounter Details Date Type Department Care Team (Late st Contact Info) Description 11/29/2017 10:10 AM EDT Procedure visit [facility] [address] [facility] [address] [place] [address] Yvonne Reyes MD Jack, Linda D, RT [...] Cough documented in this encounter Care Teams Recruiting And Selection Consultant Relationship Specialty Start Date End Date Yvonne Reyes MD PCP - General Internal Medicine 11/21/17 12/19/20 documented as of this encounter
--- OUTSIDE RECORDS SUMMARY | 2024-06-18 12:15 | XMS_ITS | Encounter Summary ---
Author Organization [facility] Address [address] [facility] [place] [address] Care Team Providers Care Capper Machine Operator Name Role Phone Yvonne Reyes MD Primary Care Provider Isaiah ayers Reason for Visit * Reason Comments Cough dry cough x 7 mos wo rse last couple of months-feel congested/ NEW PATIENT TO OFFICE Encounter Details Date Type Department Care Team (Late st Contact Info) Description 11/29/2017 9:00 AM EDT Office Visit [facility] [address] [facility] [address] [place] [address] Yvonne Reyes MD Cough (Primary Dx) Social [...] then more recently by student health at [employer]. She is applying for [employer] school this summer. She has been experiencing [...] Advil. She is planning a trip to [place] in mid November. 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
--- OUTSIDE RECORDS SUMMARY | 2024-06-18 12:16 | XMS_ITS | Encounter Summary ---
Author Organization [facility] Address [address] [place] [address] Phone [phone] Care Team Providers Care Nibbler Operator Name Role Phone Unavailable Primary Care [...]
--- OUTSIDE RECORDS SUMMARY | 2024-06-18 12:16 | XMS_ITS | Referral Summary ---
Author Organization [facility] Address [address] [place] [address] Phone [phone] Care Team Providers Care Telephone Clerk Telegraph Office Name Role Phone Unavailable Primary Care Provider Unavailabl e Encounters Date Type Department Care Team Description 04/03/2024 Travel 04/03/2024 7:00 PM EDT Office Visit [address] [place] [address] Kaleigh Ly PA Bronchitis (Primary [...]
--- OUTSIDE RECORDS SUMMARY | 2024-06-18 12:16 | XMS_ITS | Clinical Summary ---
Author Organization [facility] Address [address] [place] [address] Phone [phone] Care Team Providers Care Ball Maker Name Role Phone Unavailable Primary Care Provider [...] Description 04/03/2024 7:00 PM EDT Office Visit [address] [facility] [address] [place] [address] Kaleigh Ly PA Bronchitis (Primary Dx) 04/03/2024 [...]
--- OUTSIDE RECORDS SUMMARY | 2024-06-18 12:16 | XMS_ITS | Encounter Summary ---
Author Organization [facility] Address [address] [place] [address] Care Team Providers Care Tier Truck Driver Name Role Phone Unavailable Primary Care Provider Unavailabl e Reason for Visit * Reason Comments Gaps In Care Encounter Details Date Type Department Care Team (Late st Contact Info) Description 05/07/2016 Care Coordinates Care Coordinates [address] [address] Ewa Wilkes RN Counseling on health promotion [...]
--- OUTSIDE RECORDS SUMMARY | 2024-06-18 12:16 | XMS_ITS | Encounter Summary ---
Author Organization [facility] Address [address] [place] [address] Care Team Providers Care Bursar Name Role Phone Unavailable Primary Care Provider Unavailabl e Encounter Details Date Type Department Care Team (Late st Contact Info) Description 05/05/2012 7:19 AM [facility] Hospital Encounter [facility] [address] [place] [address] [place] [address] [place] [address] Social History Tobacco Use Types Packs/Day Years [...]
== END 2024-06-14 01:30 | disposition home or self-care (01) ==
PROVIDERS: Emergency Provider Student in an Organized Health Care Education/Training Program
DX: F10.129 Alcohol abuse with intoxication, unspecified (principal); Y90.6 Blood alcohol level of 120-199 mg/100 ml
CPT/HCPCS: 36415; 80053; 81003; 81025; 82077; 85025; 85610; 85730; 93005; 96361; 96374; 99284; J2405; J2765; J3411; J3475; J7120